=== PATIENT | female | born 1965 | race Caucasian/White ===

== ENCOUNTER 2016-12-06 09:29 | Outpatient (CLI) | payer MEDICARE, MEDICAID | END 2016-12-06 09:30 | disposition home or self-care (01) | DX: R19.7 Diarrhea, unspecified (principal) ==

== ENCOUNTER 2016-12-29 10:58 | Outpatient (CLI) | payer MEDICARE, MEDICAID | END 2016-12-29 10:59 | disposition home or self-care (01) | DX: R19.7 Diarrhea, unspecified (principal) ==

== ENCOUNTER 2017-04-27 14:12 | Inpatient (IN) | payer MEDICARE, MEDICAID ==
[2017-04-27] MEDS ORDERED: SODIUM CHLORIDE 0.9% 1,000 ML IV ONE ×2 (14:32)
[2017-04-27] MEDS ORDERED: methylPREDNISolone SUCCINATE 125 MG/2 ML VIAL IVP STA (14:33)
[2017-04-27] MEDS ORDERED: IPRATROPIUM/ALBUTEROL 3 ML NEB INH STA (14:33)
[2017-04-27] MEDS ORDERED: methylPREDNISolone SUCCINATE 125 MG/2 ML VIAL IVP ONE (14:36)
--- NOTE | 2017-04-27 14:36 | ED Physician Documentation ---
PD HPI DYSPNEA - Stated complaint Stated Complaint: WEAKNESS - Chief complaint Chief Complaint: Resp - History obtained from History obtained from: Patient, Family - History of Present Illness Timing - onset: How many days ago (3) Timing - onset during: Rest Timing - duration: Days (3) Timing - details: Gradual onset Pain level max: 0 Pain level now: 0 Inciting event(s): URI (green sputum, fevers) Improved by: O2, Rest Worsened by: Exertion, Coughing Associated symptoms: Fever, Cough, Wheezing. No: Hemoptysis, Chest pain / discomfort, Palpitations, Diaphoresis, Bilateral edema Similar symptoms before: Diagnosis (emphysema) Recently seen: Not recently seen - Additional information Additional information: has also been treated for c. 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 - Present Medications Home Medications: Ambulatory Orders Medication Instructions Recorded Confirmed Methadone 7.5 mg PO 0800 07/09/16 04/27/17 Oxybutynin [Ditropan] 5 mg PO BID 07/09/16 04/27/17 Methadone HCl [Methadone HCl] 5 mg PO 1200 04/27/17 04/27/17 Methadone HCl [Methadone HCl] 5 mg PO QPM 04/27/17 04/27/17 - Allergies Allergies/Adverse Reactions: Allergies Allergy/AdvReac Type Severity Reaction Status Date / Time No Known Drug Allergies Allergy Verified 07/09/16 14:10 - Living Situation Living Situation: reports: With family Living Arrangement: reports: At home - Social History Does the pt smoke?: Yes Smoking Status: Current every day smoker Does the pt have substance abuse?: Yes PD ED PE NORMAL - Vitals Vital signs reviewed: Yes - General General: Alert and oriented X 3, Other (tachypneic, very thin female) - HEENT HEENT: Moist mucous membranes, Pharynx benign - Neck Neck: Supple, no meningeal sign - Cardiac Cardiac: Other (tachycardia) - Respiratory Respiratory: Other (mod resp distress, diminished BS bilaterally.) - Abdomen Abdomen: Soft, Non tender, Non distended - Back Back: No spinal TTP - Derm Derm: Warm and dry - Extremities Extremities: No edema, No calf tenderness / cord - Neuro Neuro: Alert and oriented X 3 Results - Vitals Vitals: Vital Signs - 24 hr 04/27/17 04/27/17 04/27/17 14:16 14:34 15:09 Temperature 37.9 C H Heart Rate 160 H 137 H Respiratory 28 H 28 H Rate Blood Pressure 142/94 H 144/101 H 147/89 H O2 Saturation 71 L 94 04/27/17 04/27/17 04/27/17 15:20 15:30 15:38 Temperature Heart Rate 127 H 131 H Respiratory 30 H 30 H Rate Blood Pressure 159/84 H 150/85 H O2 Saturation 87 L 87 L 88 L Oxygen O2 Source Oxymask Oxygen Flow Rate 15 - Labs Labs: Laboratory Tests 04/27/17 04/27/17 04/27/17 14:29 14:29 14:49 WBC 15.1 H RBC 5.69 H Hgb 17.2 H Hct 50.6 H MCV 89.0 MCH 30.2 MCHC 33.9 RDW 13.8 Plt Count 300 MPV 8.2 Neut # Not Reportable Lymph # Not Reportable [place] # Not Reportable Eos # Not Reportable Baso # Not Reportable Absolute Nucleated RBC Not Reportable Total Counted 100 Band Neuts % (Manual) 24 H Neutrophils # (Manual) 13.0 H Lymphocytes # (Manual) 1.1 L Monocytes # (Manual) 1.1 H Nucleated RBCs Not Reportable Differential Comment MANUAL DIFFERENTIAL Platelet Estimate NORMAL (130-450,000) Platelet Morphology NORMAL APPEARANCE RBC Morph Micro Appear NORMAL APPEARANCE Sodium 130 L Potassium 4.6 Chloride 90 L Carbon Dioxide 27 Anion Gap 13.0 BUN 23 H Creatinine 0.8 Estimated GFR (MDRD) 75 L Glucose 124 H Lactic Acid 1.8 Calcium 10.0 Total Bilirubin 1.5 H AST 30 ALT 17 Alkaline Phosphatase 74 Total Protein 9.0 H Albumin 3.8 Globulin 5.2 H Albumin/Globulin Ratio 0.7 L Lipase 16 L Urine Color Urine Clarity Urine pH Ur Specific [place] Urine Protein Urine Glucose (UA) Urine Ketones Urine Occult Blood Urine Nitrite Urine Bilirubin Urine Urobilinogen Ur Leukocyte Esterase Urine RBC Urine WBC Ur Squamous Epith Cells Amorphous Sediment Urine Bacteria Urine Casts Ur Microscopic Review Urine Culture Comments 04/27/17 15:08 WBC RBC Hgb Hct MCV MCH MCHC RDW Plt Count MPV Neut # Lymph # [place] # Eos # Baso # Absolute Nucleated RBC Total Counted Band Neuts % (Manual) Neutrophils # (Manual) Lymphocytes # (Manual) Monocytes # (Manual) Nucleated RBCs Differential Comment Platelet Estimate Platelet Morphology RBC Morph Micro Appear Sodium Potassium Chloride Carbon Dioxide Anion Gap BUN Creatinine Estimated GFR (MDRD) Glucose Lactic Acid Calcium Total Bilirubin AST ALT Alkaline Phosphatase Total Protein Albumin Globulin Albumin/Globulin Ratio Lipase Urine Color YELLOW Urine Clarity CLEAR Urine pH 6.0 Ur Specific [place] >=1.030 H Urine Protein >=300 H Urine Glucose (UA) NEGATIVE Urine Ketones NEGATIVE Urine Occult Blood LARGE H Urine Nitrite POSITIVE H Urine Bilirubin NEGATIVE Urine Urobilinogen 0.2 (NORMAL) Ur Leukocyte Esterase NEGATIVE Urine RBC 11-25 H Urine WBC 11-25 H Ur Squamous Epith Cells FEW Squamous Amorphous Sediment Moderate Urine Bacteria Many H Urine Casts 6-10 Fine Granular Ur Microscopic Review INDICATED Urine Culture Comments INDICATED - Rads (name of study) Chest x-ray Radiology: Prelim report reviewed, EMP read contemporaneously, See rad report ( Hyperexpanded emphysematous chest, with new areas of abnormal pulmonary opacity and consolidation in the left lung base, compatible with pneumonia. ) PD MEDICAL DECISION MAKING - ED course Complexity details: reviewed old records, reviewed results, re-evaluated patient , considered differential, d/w patient, d/w family, d/w home energy consultant ED course: Patient is a 52-year-old female who presents to the emergency department with significant pneumonia, COPD exacerbation, hypoxia and sepsis. Given IV fluids, IV antibiotics. Blood cultures drawn. Given IV steroids. Improved with nebulizer treatment. Discussed the case with Dr. Doherty, hospitalist who accepts. This document was made in part using voice recognition software. While efforts are made to proofread this document, sound alike and grammatical errors may occur. Departure - Departure Disposition: 66 [facility] DC/Xfer Clinical Impression: Hypoxia, SIRS (systemic inflammatory response syndrome), Acute exacerbation of chronic obstructive pulmonary disease (COPD) Pneumonia Qualifiers: Pneumonia type: due to unspecified organism Laterality: bilateral Lung location : lower lobe of lung Qualified Code(s): J18.9 - Pneumonia, unspecified organism Condition: Stable Discharge Date/Time: 04/27/17 16:15
[2017-04-27] MEDS ORDERED: IPRATROPIUM/ALBUTEROL 3 ML NEB INH ONE (14:37)
[2017-04-27 14:39] LABS: BASOPHILS % (AUTO) 0.3 %; EOSINOPHILS % (AUTO) 0.1 %; HCT - HEMATOCRIT 50.6 % (37.0-47.0); HGB - HEMOGLOBIN 17.2 g/dL (12.0-16.0); LYMPHOCYTES % (AUTO) 3.9 %; MEAN CORPUSCULAR HEMOGLOBIN 30.2 pg (27.0-31.0); MEAN CORPUSCULAR HGB CONC 33.9 g/dL (32.0-36.0); MEAN PLATELET VOLUME 8.2 fL (7.9-10.8); MONOCYTES % (AUTO) 7.8 %; NEUTROPHILS % (AUTO) 87.9 %; RED BLOOD COUNT 5.69 10^6/uL (4.20-5.40); RED CELL DISTRIBUTION WIDTH 13.8 % (12.0-15.0); UNCORRECTED WHITE BLOOD COUNT 15.1 x10^3/uL; WHITE BLOOD COUNT 15.1 x10^3/uL (4.8-10.8)
[2017-04-27] MEDS ORDERED: ALBUTEROL NEB 2.5 MG/3 ML INH STA (14:52)
[2017-04-27] MEDS ORDERED: ALBUTEROL NEB 2.5 MG/3 ML INH ONE (14:52)
[2017-04-27 14:57] LABS: ALBUMIN/GLOBULIN RATIO 0.7 (1.0-2.2); BILIRUBIN,TOTAL 1.5 mg/dL (0.2-1.0); CREATININE 0.8 mg/dL (0.4-1.0); POTASSIUM 4.6 mmol/L (3.5-5.0)
[2017-04-27] MEDS ORDERED: AZITHROMYCIN INJ 500 MG in SODIUM CHLORIDE 0.9% 250 ML IV STA (15:14)
[2017-04-27] MEDS ORDERED: cefTRIAXone 1 GM in SODIUM CHLORIDE 0.9% MINIBAG 100 ML IV STA (15:14)
[2017-04-27] MEDS ORDERED: cefTRIAXone 1 GM VIAL ONE (15:16)
[2017-04-27 15:20] LABS: BILIRUBIN,URINE NEGATIVE (NEGATIVE); UA w/ MICROSCOPIC CHARGE YES
[2017-04-27 15:22] LABS: BAND NEUTROPHILS % (MANUAL) 24 %; LYMPHOCYTES % (MANUAL) 7 %; NEUTROPHILS % (MANUAL) 62 %; NP AUTO DIFFERENTIAL? YES; NP MAN DIFFERENTIAL? NO; PLATELET ESTIMATE, MANUAL NORMAL (130-450,000) (NORMAL); PLATELET MORPHOLOGY NORMAL APPEARANCE (NORMAL); TOTAL CELLS COUNTED 100
[2017-04-27 15:35] LABS: UR CULTURE IF IND INDICATED
[2017-04-27] MEDS ORDERED: ONDANSETRON 4 MG/2 ML VIAL IVP PRN (15:39)
--- NOTE | 2017-04-27 15:39 | XRAY Preliminary Report ---
Exam: XR Chest 1 View IMPRESSION: 1. Hyperexpanded emphysematous chest, with new areas of abnormal pulmonary opacity and consolidation in the left lung base, compatible with pneumonia. [facility] SITE ID: [id number]
--- NOTE | 2017-04-27 15:47 | XRAY Report ---
EXAM: CHEST RADIOGRAPHY EXAM DATE: 04/27/2017 03:03 PM. CLINICAL HISTORY: Dyspnea. COMPARISON: 07/09/2016. TECHNIQUE: 1 view. FINDINGS: Lungs/Pleura: Hyperexpanded chest with abnormal opacity in both lung bases, worse on the left with co nsolidation. Upper chest is clear. Mediastinum: Within exam limitations, cardiomediastinal contour is normal. Other: None. IMPRESSION: 1. Hyperexpanded emphysematous chest, with new areas of abnormal pulmonary opacity and consolidation in the left lung base, compatible with pneumonia. [facility] Referring Provider Line: [phone] SITE ID: [id number]
[2017-04-27] MEDS ORDERED: ALBUTEROL NEB 2.5 MG/3 ML INH PRN (15:59)
[2017-04-27] MEDS ORDERED: ONDANSETRON 4 MG/2 ML VIAL ONE (16:23)
[2017-04-27] MEDS: SODIUM CHLORIDE FLUSH 0.9% 10 ML SYRINGE IVP SCH (16:29)
[2017-04-27] MEDS: ENOXAPARIN 40 MG/0.4 ML SYRINGE SUBQ SCH (16:37)
[2017-04-27] MEDS: HYDROcod/ACETAM 5/325 MG TABLET PO PRN (16:41)
[2017-04-27] MEDS: SODIUM CHLORIDE 0.9% 1,000 ML IV SCH (17:09)
[2017-04-27] MEDS: METHADONE 5 MG TABLET PO SCH ×2 (17:13→22:21)
[2017-04-27 17:19] LABS: ABG ANALYSIS TIME 1657; ABG HCO3 21.6 mmol/L (22.0-26.0); ABG PCO2 37 mmHg (34-45); ABG PH 7.38 (7.35-7.45); ABG PO2 58 mmHg (80-100); ABG TCO2 22.8 MMOL/L (21.0-29.0)
[2017-04-27 17:20] LABS: ABG O2 DEVICE OXYMASK; ABG SATURATION PULSE OXIMETRY% 92 %; ABG SITE OF DRAW RIGHT RADIAL; ALLEN TEST POSITIVE
[2017-04-27 17:22] LABS: ABG OXYGEN SATURATION 85 % (94-98)
[2017-04-27] MEDS: IPRATROPIUM/ALBUTEROL 3 ML NEB INH PRN (18:12)
[2017-04-27] MEDS: OXYBUTYNIN 5MG TABLET PO SCH (20:48)
[2017-04-27] MEDS: methylPREDNISolone SUCCINATE 40 MG/ML VIAL IVP SCH (20:50)
--- NOTE | 2017-04-27 21:34 | HISTORY & PHYSICAL EXAMINATION ---
DATE OF ADMISSION: 04/27/2017 PRIMARY CARE PROVIDER: None. CHIEF COMPLAINT: Cough, shortness of breath, and weakness. IDENTIFYING INFORMATION: The patient is a 52-year-old female who is a cogent, consistent, a nd fairly thorough historian. Additional information is obtained in the handoff from Dr. Harman champagne, the emergency department physician. In addition, there was personal review of past medical record s summarized below, as well as the data collected during this visit. All were used in the evaluation of this person and in preparation of this document. HISTORY OF PRESENT ILLNESS: The patient says for about a week she has had some URI symptoms such as c ough and cold, had a cough, congestion which then proceeded over the next several days to shortness o f breath and increasing cough, as well as fevers. The patient noted that coughing and exertion made h er breathing worse. The patient denies any chest pain. No coughing up blood. No syncope. REVIEW OF SYSTEMS: She has had the fever, chills. No sore throat. She has had no nausea, vomiting, or diarrhea. Bowels have been okay, peeing has been satisfactory. Rest of the complete review of system s is negative as queried. PAST MEDICAL HISTORY 1. Remarkable for diagnosis of emphysema. 2. She had C difficile 9 months ago. 3. She has had bladder cancer. PAST SURGICAL HISTORY 1. Hysterectomy. 2. Bladder tumors removed 3 different times. ALLERGIES: NONE KNOWN. MEDICATIONS Patient's only medications: 1. Methadone 5 mg morning, 7.5 in the afternoon, and 5 at night. 2. Ditropan 5 mg twice a day. PERSONAL AND SOCIAL HISTORY: She was born in [place], raised in [place]; then in her 20s she moved [place]. 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 Tob acco history: She has been a smoker since she was 15, smokes a pack a day, has been told multiple mj es to quit smoking. She knows she needs to do it. Alcohol: She used to drink moderately, she says. No substance abuse. The patient is presently lives with her boyfriend. PHYSICAL EXAMINATION VITAL SIGNS: 37.9; 160, later 137 pulse; respirations 28; blood pressure 142/94; O2 saturation on jody m air was initially 71, then up to 94% she was on a rebreather and then decreased to an OxyMask. GENERAL: Patient appears older than stated age, a slender female. HEENT: Eyes EOM within normal limits. PERRL, anicteric. ENT: TM not seen. Mouth and throat: Dry mucou s membranes, tongue is coated, and poor dentition. No other pathology of mouth or pharynx. NECK: No lymphadenopathy, no thyromegaly, no bruit or JVD. CHEST WALL: Nontender. Symmetric. There is muscle subcutaneous loss noted intracostal bilaterally. BREASTS: No breast exam done. HEART: Sinus tachycardia. No murmur, rubs, clicks heard. LUNGS: Diminished breath sounds bilaterally and prolonged expirations, fair air movement, and increas ed work of breathing is noted. ABDOMEN: Soft, nontender, normal bowel sounds. No hepatosplenomegaly noted. RECTAL/GENITAL: Exam not done. EXTREMITIES: No edema. SKIN: No dermatitis or suspicious lesions are noted. NEUROLOGICAL: Cognition intact. Cranial nerves intact. Motor intact. VASCULAR: No pulses palpated posterior tibial. No cyanosis noted. Patient's capillary refill not eval uated. DIAGNOSTIC X-ray shows emphysema and a left lower lobe infiltrate. White count 15.1, H and H 17 and 15. Sodium 130, potassium 4.6, chloride 90, 27 CO2, BUN 23, creatini ne 0.8, glucose 124, lactate is 1.8, calcium 10.0, bilirubin 1.5, normal liver enzymes, albumin 3.8, lipase low at 16. The patient had blood cultures pending. Urine pending. IMPRESSION 1. Acute respiratory failure. 2. Pneumonia. 3. Chronic obstructive pulmonary disease with exacerbation. 4. Bladder cancer. SUMMARY: This is a 52-year-old female with advanced emphysema/chronic obstructive pulmonary disease, who has had bladder cancer as well. Patient started with URI symptoms, which progressed to shortness of breath and cough, and reduced ability to complete ADLs. The patient was found to have pneumonia, a cute respiratory failure, and is admitted to the hospital. DISCUSSION/DECISION MAKING 1. Acute respiratory failure. She will get beta-agonist for the COPD with exacerbation component. She will have oxygen and steroids as needed; may need further interventions including BiPAP and ventilat ion. 2. Pneumonia. She will be placed on community-acquired pneumonia antibiotics, namely Rocephin and Zit hromax. The patient will also be given the oxygen and steroids because of the COPD with exacerbation. 3. COPD with exacerbation. She will be placed on the beta-agonist, DuoNeb, and albuterol and as well as the Solu-Medrol. HOSPITAL ISSUES 1. CODE STATUS: She is FULL CODE; had a discussion with her about this and it was her decision. She a lso wants to BE ON THE VENTILATOR SEE IF HER LUNGS WILL GET BETTER. 2. Venous thromboembolism prophylaxis, which will be with Lovenox. 3. Diet: Regular diet. 4. Activity: Bedside for present. 5. Tubes and lines: Peripheral IV at this time. 6. Hospital status: Inpatient requiring at least 2 nights to determine if she is ready for discharge, and it could be longer. 7. Estimated length of stay: 3 nights. DISPOSITION: Expected to be home. The patient is told in several different ways throughout the interview conversation and post examinat ion that under no circumstances should she smoke if she wants to continue to live, and that she has g ot a reduced life span because of her advanced COPD. JOB #: [id number] EXT JOB #:[id number]
[2017-04-28] MEDS: SODIUM CHLORIDE 0.9% 1,000 ML IV SCH ×3 (01:16→23:48)
[2017-04-28] MEDS: HYDROcod/ACETAM 5/325 MG TABLET PO PRN (04:17)
[2017-04-28] MEDS: SODIUM CHLORIDE FLUSH 0.9% 10 ML SYRINGE IVP SCH ×4 (05:01→21:27)
[2017-04-28 05:43] LABS: MONOCYTES # (AUTO) 0.6 10^3/uL (0.0-1.0); NEUTROPHILS # (AUTO) 8.3 10^3/uL (1.5-6.6); RED BLOOD COUNT 4.19 10^6/uL (4.20-5.40)
[2017-04-28 05:45] LABS: BASOPHILS % (AUTO) 0.2 %; HCT - HEMATOCRIT 37.6 % (37.0-47.0); HGB - HEMOGLOBIN 12.7 g/dL (12.0-16.0); LYMPHOCYTES # (AUTO) 0.3 10^3/uL (1.5-3.5); LYMPHOCYTES % (AUTO) 3.5 %; MEAN CORPUSCULAR HEMOGLOBIN 30.4 pg (27.0-31.0); MEAN CORPUSCULAR HGB CONC 33.9 g/dL (32.0-36.0); MEAN CORPUSCULAR VOLUME 89.6 fL (81.0-99.0); MEAN PLATELET VOLUME 8.2 fL (7.9-10.8); MONOCYTES % (AUTO) 6.9 %; NEUTROPHILS % (AUTO) 89.4 %; RED CELL DISTRIBUTION WIDTH 13.9 % (12.0-15.0); UNCORRECTED WHITE BLOOD COUNT 9.3 x10^3/uL; WHITE BLOOD COUNT 9.3 x10^3/uL (4.8-10.8)
[2017-04-28 05:53] LABS: CALCIUM 8.6 mg/dL (8.5-10.3); CREATININE 0.5 mg/dL (0.4-1.0); POTASSIUM 4.1 mmol/L (3.5-5.0)
--- NOTE | 2017-04-28 08:15 | PROVIDER PROGRESS NOTE ---
Assessment/Plan - Problem List (1) Acute respiratory failure with hypoxia Assessment/Plan: Patient presented with pneumonia and COPD exacerbation Had increasing O2 needs with tachycardia in the 140s, tachypnic and in respiratory distress ABG showed hypoxia Placed in the ICU on 10L of O2 Starting on IV abx ceftriaxone and azithromycin Placed on IV steroids and nebs Improved this am down to 5L of O2 COntinue supplemental O2 and treatment of PNA and COPD (2) CAP (community acquired pneumonia) Assessment/Plan: CXR showed left lung base opacity Patient presented with respiratory distress and was in hypoxic respiratory failure Required 10L of O2 yesterday but today is down to 5L and much more comfortable Continue IV ceftriaxone and azithromycin day 2 (3) COPD exacerbation Assessment/Plan: Likely secondary to CAP Patient with history of emphysema Presented with hypoxic respiratory failure Improved today down to 5L of O2 Decreased lungs sounds Continue IV solumedrol, Duonebs (4) UTI (urinary tract infection) Assessment/Plan: Presented with leukocytosis and UA positive Being treated for CAP with ceftriaxone which covers UTI Continue ceftriaxone IV Awaiting urine cx - Current Meds Current Meds: Current Medications Generic Name Dose Route Start Last Admin Trade Name Freq PRN Reason Stop Dose Admin Acetaminophen/Hydrocodone Bitart 1 tab 04/27/17 15:39 04/28/17 04:17 Evangeline 5/325 PO 1 tab Q4HR PRN Administration Pain 5 to 7 Albuterol/Ipratropium 3 ml 04/27/17 15:59 04/27/17 18:12 Duoneb INH 3 ml Q4HR PRN Administration Wheezing Enoxaparin Sodium 40 mg 04/27/17 09:00 04/27/17 16:37 Lovenox SUBQ Not Given DAILY RAYRAY Sodium Chloride 1,000 mls @ 80 mls/hr 04/27/17 16:00 04/28/17 01:16 Normal Saline 0.9% IV 80 mls/hr .[id number] RAYRAY Administration Methadone HCl 5 mg 04/27/17 21:00 04/27/17 22:21 PO 5 mg QPM RAYRAY Administration Methadone HCl 5 mg 04/27/17 17:15 04/27/17 17:13 PO 5 mg 1200 RAYRAY Administration Methylprednisolone 40 mg 04/27/17 21:00 04/27/17 20:50 Solu-Medrol (40mg Vial) IVP 40 mg BID RAYRAY Administration Oxybutynin Chloride 5 mg 04/27/17 21:00 04/27/17 20:48 Ditropan PO 5 mg BID RAYRAY Administration Sodium Chloride 10 ml 04/27/17 22:00 04/28/17 05:01 Normal Saline Flush 0.9% IVP 10 ml Q8HR RAYRAY Administration - Lab Result Lab results reviewed: Yes Fish Bone Diagrams: 04/28/17 04:47 04/28/17 04:47 - EKG Results EKG Interpreted Independently: Yes - Diagnostic Imaging Results Diagnostic Imaging Results: positive: Final report reviewed - Additional Planning Condition/Complexity: Guarded My Orders: My Active Orders 04/28/17 08:00 Saccharomyces Boulardii [Florastor] 250 mg PO BIDWM Plan Discussed with:: Patient Time Spent: 31-60 minutes Subjective - Subjective Patient Reports: Cough (Improving), Shortness of Breath (Improved since yesterday), Other (No fevers overnight, breathing is better.) Nursing Reports: No Complaints Objective Vital Signs: Vital Signs - 24 hr 04/27/17 04/27/17 04/27/17 15:59 18:14 20:00 Temperature 36.9 C Heart Rate 137 H 100 Heart Rate [ 102 H Monitoring electrodes] Respiratory 29 H 21 21 Rate Blood Pressure 147/98 H Blood Pressure 116/67 [Left Brachial artery] O2 Saturation 90 L 90 L 04/27/17 04/27/17 04/27/17 21:00 22:00 23:00 Temperature Heart Rate Heart Rate [ 102 H 100 97 Monitoring electrodes] Respiratory 16 16 20 Rate Blood Pressure Blood Pressure 113/68 108/66 113/71 [Left Brachial artery] O2 Saturation 90 L 91 L 94 04/28/17 04/28/17 04/28/17 00:00 01:00 02:00 Temperature Heart Rate Heart Rate [ 100 98 90 Monitoring electrodes] Respiratory 18 17 16 Rate Blood Pressure Blood Pressure 113/71 95/56 L 116/70 [Left Brachial artery] O2 Saturation 99 97 95 04/28/17 04/28/17 04/28/17 03:00 04:00 05:00 Temperature Heart Rate Heart Rate [ 80 96 78 Monitoring electrodes] Respiratory 18 18 20 Rate Blood Pressure Blood Pressure 102/60 110/70 124/67 [Left Brachial artery] O2 Saturation 91 L 92 93 06/27/17 06/27/17 06/27/17 06:00 06:58 08:00 Temperature Heart Rate Heart Rate [ 92 67 93 Monitoring electrodes] Respiratory 21 12 20 Rate Blood Pressure Blood Pressure 128/60 104/61 120/72 [Left Brachial artery] O2 Saturation 93 93 88 L Oxygen O2 Source Nasal cannula I&O (Last 24 Hrs): Intake and Output Totals x24h 04/26/17 04/27/17 04/28/17 23:59 23:59 23:59 Intake Total 560 740 Output Total 375 175 Balance 185 565 General: Alert, Oriented x3, Cooperative, No acute distress, Other (Very thin and frail looking) HEENT: Atraumatic, PERRLA, EOMI, Mucous membr. moist/pink Neck: Supple, No JVD, No thyromegaly, +2 carotid pulse wo bruit, No LAD Lymphatic: no adenopathy Neuro: Alert, Non Focal, CN 2-12 Grossly Intact, Oriented Times 3 Cardiovascular: Regular rate, Normal S1, Normal S2, No murmurs Respiratory: Chest non-tender, Wheezes (scattered), Rhonchi (left lower lobe), Other (decreased air entry) Abdomen: Normal bowel sounds, Soft, No tenderness, No hepatospenomegaly, No masses Extremities: No clubbing, No cyanosis, No edema, Normal pulses, No tenderness/ swelling Skin: No rashes, No breakdown - Results Results: Laboratory Results WBC 9.3 x10^3/uL (4.8-10.8) 04/28/17 04:47 RBC 4.19 10^6/uL (4.20-5.40) L 04/28/17 04:47 Hgb 12.7 g/dL (12.0-16.0) 04/28/17 04:47 Hct 37.6 % (37.0-47.0) 04/28/17 04:47 MCV 89.6 fL (81.0-99.0) 04/28/17 04:47 MCH 30.4 pg (27.0-31.0) 04/28/17 04:47 MCHC 33.9 g/dL (32.0-36.0) 04/28/17 04:47 RDW 13.9 % (12.0-15.0) 04/28/17 04:47 Plt Count 205 10^3/uL (130-450) 04/28/17 04:47 MPV 8.2 fL (7.9-10.8) 04/28/17 04:47 Neut # 8.3 10^3/uL (1.5-6.6) H 04/28/17 04:47 Lymph # 0.3 10^3/uL (1.5-3.5) L 04/28/17 04:47 [place] # 0.6 10^3/uL (0.0-1.0) 04/28/17 04:47 Eos # 0.0 10^3/uL (0.0-0.7) 04/28/17 04:47 Baso # 0.0 10^3/uL (0.0-0.1) 04/28/17 04:47 Absolute Nucleated RBC 0.00 x10^3/uL 04/28/17 04:47 Total Counted 100 04/27/17 14:29 Band Neuts % (Manual) 24 % (0-10) H 04/27/17 14:29 Neutrophils # (Manual) 13.0 10^3/uL (1.5-6.6) H 04/27/17 14:29 Lymphocytes # (Manual) 1.1 10^3/uL (1.5-3.5) L 04/27/17 14:29 Monocytes # (Manual) 1.1 10^3/uL (0.0-1.0) H 04/27/17 14:29 Nucleated RBCs 0.0 /100WBC 04/28/17 04:47 Differential Comment MANUAL DIFFERENTIAL 04/27/17 14:29 Platelet Estimate NORMAL (130-450,000) (NORMAL) 04/27/17 14:29 Platelet Morphology NORMAL APPEARANCE (NORMAL) 04/27/17 14:29 RBC Morph Micro Appear NORMAL APPEARANCE (NORMAL) 04/27/17 14:29 Bld Gas Analysis Time 1657 04/27/17 16:50 Sample Site RIGHT RADIAL 04/27/17 16:50 ABG pH 7.38 (7.35-7.45) 04/27/17 16:50 ABG pCO2 37 mmHg (34-45) 04/27/17 16:50 ABG pO2 58 mmHg (80-100) L 04/27/17 16:50 ABG HCO3 21.6 mmol/L (22.0-26.0) L 04/27/17 16:50 ABG Total CO2 22.8 MMOL/L (21.0-29.0) 04/27/17 16:50 ABG O2 Saturation 85 % (94-98) L* 04/27/17 16:50 ABG Oximetry Spot Check 92 % 04/27/17 16:50 ABG Base Excess -3.0 mmol/L (-2.0-3.0) L 04/27/17 16:50 Leonel Test POSITIVE 04/27/17 16:50 O2 Delivery Device OXYMASK 04/27/17 16:50 O2 Liters/Min 10.00 LPM 04/27/17 16:50 Sodium 136 mmol/L (135-145) 04/28/17 04:47 Potassium 4.1 mmol/L (3.5-5.0) 04/28/17 04:47 Chloride 101 mmol/L (101-111) 04/28/17 04:47 Carbon Dioxide 26 mmol/L (21-32) 04/28/17 04:47 Anion Gap 9.0 (6-13) 04/28/17 04:47 BUN 18 mg/dL (6-20) 04/28/17 04:47 Creatinine 0.5 mg/dL (0.4-1.0) 04/28/17 04:47 Estimated GFR (MDRD) 130 (>89) 04/28/17 04:47 Glucose 113 mg/dL (70-100) H 04/28/17 04:47 Lactic Acid 1.8 mmol/L (0.5-2.2) 04/27/17 14:49 Calcium 8.6 mg/dL (8.5-10.3) 04/28/17 04:47 Total Bilirubin 1.5 mg/dL (0.2-1.0) H 04/27/17 14:29 AST 30 IU/L (10-42) 04/27/17 14:29 ALT 17 IU/L (10-60) 04/27/17 14:29 Alkaline Phosphatase 74 IU/L (42-121) 04/27/17 14:29 Total Protein 9.0 g/dL (6.7-8.2) H 04/27/17 14:29 Albumin 3.8 g/dL (3.2-5.5) 04/27/17 14:29 Globulin 5.2 g/dL (2.1-4.2) H 04/27/17 14:29 Albumin/Globulin Ratio 0.7 (1.0-2.2) L 04/27/17 14:29 Lipase 16 U/L (22-51) L 04/27/17 14:29 Urine Color YELLOW 04/27/17 15:08 Urine Clarity CLEAR (CLEAR) 04/27/17 15:08 Urine pH 6.0 PH (5.0-7.5) 04/27/17 15:08 Ur Specific [place] >=1.030 (1.002-1.030) H 04/27/17 15:08 Urine Protein >=300 mg/dL (NEGATIVE) H 04/27/17 15:08 Urine Glucose (UA) NEGATIVE mg/dL (NEGATIVE) 04/27/17 15:08 Urine Ketones NEGATIVE mg/dL (NEGATIVE) 04/27/17 15:08 Urine Occult Blood LARGE (NEGATIVE) H 04/27/17 15:08 Urine Nitrite POSITIVE (NEGATIVE) H 04/27/17 15:08 Urine Bilirubin NEGATIVE (NEGATIVE) 04/27/17 15:08 Urine Urobilinogen 0.2 (NORMAL) E.U./dL (NORMAL) 04/27/17 15:08 Ur Leukocyte Esterase NEGATIVE (NEGATIVE) 04/27/17 15:08 Urine RBC 11-25 /HPF (0-5) H 04/27/17 15:08 Urine WBC 11-25 /HPF (0-5) H 04/27/17 15:08 Ur Squamous Epith Cells FEW Squamous (<= Few) 04/27/17 15:08 Amorphous Sediment Moderate /LPF 04/27/17 15:08 Urine Bacteria Many /HPF (None Seen) H 04/27/17 15:08 Urine Casts 6-10 Fine Granular /LPF 04/27/17 15:08 Ur Microscopic Review INDICATED 04/27/17 15:08 Urine Culture Comments INDICATED 04/27/17 15:08
[2017-04-28] MEDS: ACETAMINOPHEN 325 MG TABLET PO PRN ×3 (08:16→21:35)
[2017-04-28] MEDS: METHADONE 5 MG TABLET PO SCH ×3 (08:16→21:25)
[2017-04-28] MEDS: SACCHAROMYCES BOULARDII 250 MG CAPSULE PO SCH ×2 (08:24→18:02)
[2017-04-28] MEDS: cefTRIAXone 2 GM in SODIUM CHLORIDE 0.9% MINIBAG 100 ML IV SCH (08:53)
[2017-04-28] MEDS: ENOXAPARIN 40 MG/0.4 ML SYRINGE SUBQ SCH (08:53)
[2017-04-28] MEDS: POLYETHYLENE GLYCOL 3350 17 GM PACKET PO SCH (08:53)
[2017-04-28] MEDS: methylPREDNISolone SUCCINATE 40 MG/ML VIAL IVP SCH ×2 (09:14→21:27)
[2017-04-28] MEDS: OXYBUTYNIN 5MG TABLET PO SCH ×2 (09:15→21:25)
[2017-04-28] MEDS: AZITHROMYCIN INJ 500 MG in SODIUM CHLORIDE 0.9% 250 ML IV SCH (10:19)
[2017-04-28] MEDS: ONDANSETRON 4 MG/2 ML VIAL IVP PRN ×2 (11:34→17:27)
[2017-04-28] MEDS: DOCUSATE SODIUM 250 MG CAPSULE PO SCH (18:01)
[2017-04-29] MEDS: SODIUM CHLORIDE FLUSH 0.9% 10 ML SYRINGE IVP SCH ×3 (05:32→20:53)
[2017-04-29] MEDS: HYDROcod/ACETAM 5/325 MG TABLET PO PRN (05:35)
[2017-04-29 06:07] LABS: BASOPHILS % (AUTO) 0.3 %; HGB - HEMOGLOBIN 12.7 g/dL (12.0-16.0); LYMPHOCYTES % (AUTO) 4.7 %; MEAN CORPUSCULAR HEMOGLOBIN 30.1 pg (27.0-31.0); MEAN CORPUSCULAR HGB CONC 33.4 g/dL (32.0-36.0); MEAN CORPUSCULAR VOLUME 90.2 fL (81.0-99.0); MEAN PLATELET VOLUME 8.1 fL (7.9-10.8); MONOCYTES % (AUTO) 4.1 %; NEUTROPHILS % (AUTO) 90.9 %; RED BLOOD COUNT 4.21 10^6/uL (4.20-5.40); RED CELL DISTRIBUTION WIDTH 14.1 % (12.0-15.0); UNCORRECTED WHITE BLOOD COUNT 14.2 x10^3/uL; WHITE BLOOD COUNT 14.2 x10^3/uL (4.8-10.8)
[2017-04-29 06:18] LABS: CREATININE 0.5 mg/dL (0.4-1.0); POTASSIUM 4.7 mmol/L (3.5-5.0)
[2017-04-29 06:29] LABS: BAND NEUTROPHILS % (MANUAL) 24 %; LYMPHOCYTES % (MANUAL) 3 %; NEUTROPHILS % (MANUAL) 73 %; PLATELET ESTIMATE, MANUAL NORMAL (130-450,000) (NORMAL); TOTAL CELLS COUNTED 100
[2017-04-29 06:30] LABS: NP AUTO DIFFERENTIAL? YES; NP MAN DIFFERENTIAL? NO
[2017-04-29] MEDS: IPRATROPIUM/ALBUTEROL 3 ML NEB INH PRN ×4 (07:40→19:53)
[2017-04-29] MEDS: METHADONE 5 MG TABLET PO SCH ×3 (09:00→20:52)
[2017-04-29] MEDS: DOCUSATE SODIUM 250 MG CAPSULE PO SCH (09:01)
[2017-04-29] MEDS: ENOXAPARIN 40 MG/0.4 ML SYRINGE SUBQ SCH (09:01)
[2017-04-29] MEDS: SACCHAROMYCES BOULARDII 250 MG CAPSULE PO SCH ×2 (09:01→18:31)
[2017-04-29] MEDS: cefTRIAXone 2 GM in SODIUM CHLORIDE 0.9% MINIBAG 100 ML IV SCH (09:01)
[2017-04-29] MEDS: methylPREDNISolone SUCCINATE 40 MG/ML VIAL IVP SCH (09:02)
[2017-04-29] MEDS: SODIUM CHLORIDE FLUSH 0.9% 10 ML SYRINGE IVP PRN ×2 (09:02→11:54)
[2017-04-29] MEDS: OXYBUTYNIN 5MG TABLET PO SCH ×2 (09:02→20:52)
[2017-04-29] MEDS: POLYETHYLENE GLYCOL 3350 17 GM PACKET PO SCH (09:02)
--- NOTE | 2017-04-29 09:09 | PROVIDER PROGRESS NOTE ---
Assessment/Plan - Problem List (1) Acute exacerbation of chronic obstructive pulmonary disease (COPD) Assessment/Plan: (1) Acute respiratory failure with hypoxia Assessment/Plan: Patient presented with pneumonia and COPD exacerbation Had increasing O2 needs with tachycardia in the 140s, tachypnic and in respiratory distress ABG showed hypoxia admitted to ICU and started on abx and copd tx some improvement by HD 2 and pt was transferred to the medical [facility]. pt continues to require supplemental oxygen 4-5 liters, on RA at baseline continue nebs and tx as below. (2) CAP (community acquired pneumonia) Assessment/Plan: CXR showed left lung base opacity Patient presented with respiratory distress and was in hypoxic respiratory failure She is having left sided pleuritic cp and has vicodin for break through pain Continue IV ceftriaxone and azithromycin started 04/27 (3) COPD exacerbation Assessment/Plan: Likely secondary to CAP and long hx of tobacco dependence Patient with history of emphysema Presented with hypoxic respiratory failure overall improving, decreased oxygen needs today at 4-5 L NC Continue Duonebs, change IV solumedrol to prednisone 60 mg daily for a taper Encourage tobacco cessation (4) UTI (urinary tract infection) Assessment/Plan: Presented with leukocytosis and UA positive UCx >100k E coli Continue ceftriaxone IV 5) tobacco dependence encouraged cessation and offered assistance including nicotine patch and chantix. pt wants to quite but does not feel she needs any assitance at this time. 6) Narcotic dependence continuous use pt has been on methadone group home. She states it was started for abd pain. home methadone dose was continued - Current Meds Current Meds: Current Medications Generic Name Dose Route Start Last Admin Trade Name [place]q PRN Reason Stop Dose Admin Acetaminophen 650 mg 04/27/17 15:39 04/28/17 21:35 Tylenol PO 650 mg Q4HR PRN Administration Pain 1 to 4 Acetaminophen/Hydrocodone Bitart 1 tab 04/27/17 15:39 04/29/17 05:35 [place] 5/325 PO 1 tab Q4HR PRN Administration Pain 5 to 7 Albuterol/Ipratropium 3 ml 04/27/17 15:59 04/29/17 07:40 Duoneb INH 3 ml Q4HR PRN Administration Wheezing Docusate Sodium 250 - 500 mg 04/28/17 17:45 04/29/17 09:01 Colace 250mg Capsule PO Not Given DAILY RAYRAY Enoxaparin Sodium 40 mg 04/27/17 09:00 04/29/17 09:01 Lovenox SUBQ 40 mg DAILY RAYRAY Administration Sodium Chloride 1,000 mls @ 80 mls/hr 04/27/17 16:00 04/28/17 23:48 Normal Saline 0.9% IV 80 mls/hr .[id number] RAYRAY Administration Azithromycin 500 mg/ Sodium 250 mls @ 250 mls/hr 04/28/17 10:00 04/28/17 10:19 Chloride IV 250 mls/hr DAILY@1000 RAYRAY Administration Ceftriaxone Sodium 2 gm/ 100 mls @ 200 mls/hr 04/28/17 09:00 04/29/17 09:01 Sodium Chloride IV 200 mls/hr DAILY RAYRAY Administration Methadone HCl 5 mg 04/27/17 21:00 04/28/17 21:25 PO 5 mg QPM RAYRAY Administration Methadone HCl 7.5 mg 04/28/17 08:00 04/29/17 09:00 PO 7.5 mg 0800 RAYRAY Administration Methadone HCl 5 mg 04/27/17 17:15 04/28/17 12:14 PO 5 mg 1200 RAYRAY Administration Methylprednisolone 40 mg 04/27/17 21:00 04/29/17 09:02 Solu-Medrol (40mg Vial) IVP 40 mg BID RAYRAY Administration Ondansetron HCl 4 mg 04/27/17 16:31 04/28/17 17:27 Zofran Inj IVP 4 mg Q4HR PRN Administration Nausea / Vomiting Oxybutynin Chloride 5 mg 04/27/17 21:00 04/29/17 09:02 Ditropan PO 5 mg BID RAYRAY Administration Polyethylene Glycol 17 gm 04/28/17 09:00 04/29/17 09:02 Miralax PO Not Given DAILY RAYRAY Saccharomyces Boulardii 250 mg 04/28/17 08:00 04/29/17 09:01 Florastor PO 250 mg BIDWM RAYRAY Administration Sodium Chloride 10 ml 04/27/17 15:39 04/29/17 09:02 Normal Saline Flush 0.9% IVP 10 ml PRN PRN Administration NEEDED PER PROVIDER ORDERS Sodium Chloride 10 ml 04/27/17 22:00 04/29/17 05:32 Normal Saline Flush 0.9% IVP 10 ml Q8HR RAYRAY Administration - Lab Result Fish Bone Diagrams: 04/29/17 05:35 04/29/17 05:35 - Additional Planning My Orders: My Active Orders 04/28/17 17:45 Docusate Sodium 250Mg Capsule [Colace 250Mg Capsule] 250 - 500 mg PO DAILY Subjective - Subjective Patient Reports: Resting Comfortably, Other (less shortness of breath, is complaining of left sided pleuritic chest pain.) Objective Vital Signs: Vital Signs - 24 hr 04/28/17 04/28/17 04/28/17 10:00 11:00 11:51 Temperature 36.3 C L Heart Rate Heart Rate [ Brachial] Heart Rate [ 75 92 81 Monitoring electrodes] Respiratory 19 16 20 Rate Blood Pressure 142/79 H 131/73 H 125/73 [Left Brachial artery] O2 Saturation 93 99 99 04/28/17 04/28/17 04/28/17 12:48 14:00 14:43 Temperature Heart Rate Heart Rate [ Brachial] Heart Rate [ 91 75 78 Monitoring electrodes] Respiratory 15 19 18 Rate Blood Pressure 120/73 134/78 H 133/83 H [Left Brachial artery] O2 Saturation 92 94 96 04/28/17 04/28/17 04/28/17 16:00 17:00 17:58 Temperature 36.8 C Heart Rate Heart Rate [ Brachial] Heart Rate [ 67 70 80 Monitoring electrodes] Respiratory 16 17 17 Rate Blood Pressure 124/72 130/65 145/77 H [Left Brachial artery] O2 Saturation 97 97 93 04/28/17 04/28/17 04/29/17 18:30 20:00 00:00 Temperature 36.9 C 36.6 C 36.6 C Heart Rate Heart Rate [ 68 68 65 Brachial] Heart Rate [ Monitoring electrodes] Respiratory 20 18 18 Rate Blood Pressure 143/78 H 147/68 H 122/76 [Left Brachial artery] O2 Saturation 94 96 98 04/29/17 04/29/17 04/29/17 05:31 07:40 08:57 Temperature 36.7 C 36.5 C Heart Rate 64 Heart Rate [ 66 74 Brachial] Heart Rate [ Monitoring electrodes] Respiratory 18 18 14 Rate Blood Pressure 103/56 L 124/67 [Left Brachial artery] O2 Saturation 97 94 Oxygen O2 Source Nasal cannula I&O (Last 24 Hrs): Intake and Output Totals x24h 04/27/17 04/28/17 04/29/17 23:59 23:59 23:59 Intake Total 560 9505 795 Output Total 375 275 Balance 185 3110 795 General: Alert, Oriented x3, No acute distress Cardiovascular: Regular rate, Normal S1, Normal S2, No murmurs Respiratory: No respiratory distress, Other (left posterior basilar rhales on inspiration, improve with deep breath.) Abdomen: Normal bowel sounds, Soft, No tenderness Extremities: No edema, No tenderness/swelling - Results Results: Laboratory Results WBC 14.2 x10^3/uL (4.8-10.8) H 04/29/17 05:35 RBC 4.21 10^6/uL (4.20-5.40) 04/29/17 05:35 Hgb 12.7 g/dL (12.0-16.0) 04/29/17 05:35 Hct 38.0 % (37.0-47.0) 04/29/17 05:35 MCV 90.2 fL (81.0-99.0) 04/29/17 05:35 MCH 30.1 pg (27.0-31.0) 04/29/17 05:35 MCHC 33.4 g/dL (32.0-36.0) 04/29/17 05:35 RDW 14.1 % (12.0-15.0) 04/29/17 05:35 Plt Count 240 10^3/uL (130-450) 04/29/17 05:35 MPV 8.1 fL (7.9-10.8) 04/29/17 05:35 Neut # Not Reportable 04/29/17 05:35 Lymph # Not Reportable 04/29/17 05:35 [place] # Not Reportable 04/29/17 05:35 Eos # Not Reportable 04/29/17 05:35 Baso # Not Reportable 04/29/17 05:35 Absolute Nucleated RBC Not Reportable 04/29/17 05:35 Total Counted 100 04/29/17 05:35 Band Neuts % (Manual) 24 % (0-10) H 04/29/17 05:35 Neutrophils # (Manual) 13.8 10^3/uL (1.5-6.6) H 04/29/17 05:35 Lymphocytes # (Manual) 0.4 10^3/uL (1.5-3.5) L 04/29/17 05:35 Monocytes # (Manual) 1.1 10^3/uL (0.0-1.0) H 04/27/17 14:29 Nucleated RBCs Not Reportable 04/29/17 05:35 Differential Comment MANUAL DIFFERENTIAL 04/29/17 05:35 Platelet Estimate NORMAL (130-450,000) (NORMAL) 04/29/17 05:35 Platelet Morphology NORMAL APPEARANCE (NORMAL) 04/27/17 14:29 RBC Morph Micro Appear NORMAL APPEARANCE (NORMAL) 04/29/17 05:35 Bld Gas Analysis Time 1657 04/27/17 16:50 Sample Site RIGHT RADIAL 04/27/17 16:50 ABG pH 7.38 (7.35-7.45) 04/27/17 16:50 ABG pCO2 37 mmHg (34-45) 04/27/17 16:50 ABG pO2 58 mmHg (80-100) L 04/27/17 16:50 ABG HCO3 21.6 mmol/L (22.0-26.0) L 04/27/17 16:50 ABG Total CO2 22.8 MMOL/L (21.0-29.0) 04/27/17 16:50 ABG O2 Saturation 85 % (94-98) L* 04/27/17 16:50 ABG Oximetry Spot Check 92 % 04/27/17 16:50 ABG Base Excess -3.0 mmol/L (-2.0-3.0) L 04/27/17 16:50 Leonel Test POSITIVE 04/27/17 16:50 O2 Delivery Device OXYMASK 04/27/17 16:50 O2 Liters/Min 10.00 LPM 04/27/17 16:50 Sodium 137 mmol/L (135-145) 04/29/17 05:35 Potassium 4.7 mmol/L (3.5-5.0) 04/29/17 05:35 Chloride 102 mmol/L (101-111) 04/29/17 05:35 Carbon Dioxide 28 mmol/L (21-32) 04/29/17 05:35 Anion Gap 7.0 (6-13) 04/29/17 05:35 BUN 18 mg/dL (6-20) 04/29/17 05:35 Creatinine 0.5 mg/dL (0.4-1.0) 04/29/17 05:35 Estimated GFR (MDRD) 130 (>89) 04/29/17 05:35 Glucose 131 mg/dL (70-100) H 04/29/17 05:35 Lactic Acid 1.8 mmol/L (0.5-2.2) 04/27/17 14:49 Calcium 9.0 mg/dL (8.5-10.3) 04/29/17 05:35 Total Bilirubin 1.5 mg/dL (0.2-1.0) H 04/27/17 14:29 AST 30 IU/L (10-42) 04/27/17 14:29 ALT 17 IU/L (10-60) 04/27/17 14:29 Alkaline Phosphatase 74 IU/L (42-121) 04/27/17 14:29 Total Protein 9.0 g/dL (6.7-8.2) H 04/27/17 14:29 Albumin 3.8 g/dL (3.2-5.5) 04/27/17 14:29 Globulin 5.2 g/dL (2.1-4.2) H 04/27/17 14:29 Albumin/Globulin Ratio 0.7 (1.0-2.2) L 04/27/17 14:29 Lipase 16 U/L (22-51) L 04/27/17 14:29 Urine Color YELLOW 04/27/17 15:08 Urine Clarity CLEAR (CLEAR) 04/27/17 15:08 Urine pH 6.0 PH (5.0-7.5) 04/27/17 15:08 Ur Specific [place] >=1.030 (1.002-1.030) H 04/27/17 15:08 Urine Protein >=300 mg/dL (NEGATIVE) H 04/27/17 15:08 Urine Glucose (UA) NEGATIVE mg/dL (NEGATIVE) 04/27/17 15:08 Urine Ketones NEGATIVE mg/dL (NEGATIVE) 04/27/17 15:08 Urine Occult Blood LARGE (NEGATIVE) H 04/27/17 15:08 Urine Nitrite POSITIVE (NEGATIVE) H 04/27/17 15:08 Urine Bilirubin NEGATIVE (NEGATIVE) 04/27/17 15:08 Urine Urobilinogen 0.2 (NORMAL) E.U./dL (NORMAL) 04/27/17 15:08 Ur Leukocyte Esterase NEGATIVE (NEGATIVE) 04/27/17 15:08 Urine RBC 11-25 /HPF (0-5) H 04/27/17 15:08 Urine WBC 11-25 /HPF (0-5) H 04/27/17 15:08 Ur Squamous Epith Cells FEW Squamous (<= Few) 04/27/17 15:08 Amorphous Sediment Moderate /LPF 04/27/17 15:08 Urine Bacteria Many /HPF (None Seen) H 04/27/17 15:08 Urine Casts 6-10 Fine Granular /LPF 04/27/17 15:08 Ur Microscopic Review INDICATED 04/27/17 15:08 Urine Culture Comments INDICATED 04/27/17 15:08
[2017-04-29] MEDS: predniSONE 20 MG TABLET PO SCH (10:11)
[2017-04-29] MEDS: AZITHROMYCIN INJ 500 MG in SODIUM CHLORIDE 0.9% 250 ML IV SCH (10:16)
--- NOTE | 2017-04-29 10:24 | XRAY Report ---
TWO VIEW CHEST: 04/29/2017 CLINICAL INDICATION: Followup infiltrate. COMPARISON: 04/27/2017. FINDINGS: Frontal and lateral views of the chest demonstrate a normal cardiac silhouette. Emphysemat ous changes are stable. Left basilar infiltrate persists, with trace effusion. No pneumothorax. IMPRESSION: PERSISTENT LEFT BASILAR INFILTRATE WITH TRACE EFFUSION, SUPERIMPOSED UPON EMPHYSEMA. JOB #: [id number] EXT JOB #:[id number]
[2017-04-29] MEDS: ONDANSETRON 4 MG/2 ML VIAL IVP PRN (11:54)
[2017-04-29] MEDS: SODIUM CHLORIDE 0.9% 1,000 ML IV SCH (13:54)
[2017-04-30] MEDS: SODIUM CHLORIDE 0.9% 1,000 ML IV SCH ×2 (00:13→15:22)
[2017-04-30] MEDS: SODIUM CHLORIDE FLUSH 0.9% 10 ML SYRINGE IVP SCH ×3 (05:31→22:49)
[2017-04-30] MEDS: HYDROcod/ACETAM 5/325 MG TABLET PO PRN (05:40)
[2017-04-30] MEDS: ONDANSETRON 4 MG/2 ML VIAL IVP PRN ×3 (05:40→12:50)
[2017-04-30 05:48] LABS: BASOPHILS % (AUTO) 0.1 %; HCT - HEMATOCRIT 34.4 % (37.0-47.0); HGB - HEMOGLOBIN 11.6 g/dL (12.0-16.0); LYMPHOCYTES % (AUTO) 9.8 %; MEAN CORPUSCULAR HEMOGLOBIN 30.4 pg (27.0-31.0); MEAN CORPUSCULAR HGB CONC 33.7 g/dL (32.0-36.0); MEAN CORPUSCULAR VOLUME 90.4 fL (81.0-99.0); MEAN PLATELET VOLUME 7.7 fL (7.9-10.8); MONOCYTES % (AUTO) 9.4 %; NEUTROPHILS % (AUTO) 80.7 %; RED CELL DISTRIBUTION WIDTH 14.1 % (12.0-15.0); UNCORRECTED WHITE BLOOD COUNT 13.1 x10^3/uL; WHITE BLOOD COUNT 13.1 x10^3/uL (4.8-10.8)
[2017-04-30 05:50] LABS: CALCIUM 8.5 mg/dL (8.5-10.3); CREATININE 0.5 mg/dL (0.4-1.0); POTASSIUM 3.7 mmol/L (3.5-5.0)
[2017-04-30 06:22] LABS: BAND NEUTROPHILS % (MANUAL) 10 %; LYMPHOCYTES % (MANUAL) 10 %; NEUTROPHILS % (MANUAL) 68 %; NP AUTO DIFFERENTIAL? YES; NP MAN DIFFERENTIAL? NO; PLATELET ESTIMATE, MANUAL NORMAL (130-450,000) (NORMAL); TOTAL CELLS COUNTED 100
[2017-04-30] MEDS: IPRATROPIUM/ALBUTEROL 3 ML NEB INH PRN ×2 (07:30→15:00)
[2017-04-30] MEDS: SODIUM CHLORIDE FLUSH 0.9% 10 ML SYRINGE IVP PRN (08:31)
[2017-04-30] MEDS: cefTRIAXone 2 GM in SODIUM CHLORIDE 0.9% MINIBAG 100 ML IV SCH (08:35)
[2017-04-30] MEDS: predniSONE 20 MG TABLET PO SCH (08:35)
[2017-04-30] MEDS: SACCHAROMYCES BOULARDII 250 MG CAPSULE PO SCH ×2 (08:35→16:20)
[2017-04-30] MEDS: METHADONE 5 MG TABLET PO SCH ×3 (08:35→21:16)
[2017-04-30] MEDS: POLYETHYLENE GLYCOL 3350 17 GM PACKET PO SCH (08:36)
[2017-04-30] MEDS: DOCUSATE SODIUM 250 MG CAPSULE PO SCH (08:36)
[2017-04-30] MEDS: ENOXAPARIN 40 MG/0.4 ML SYRINGE SUBQ SCH (08:36)
[2017-04-30] MEDS: OXYBUTYNIN 5MG TABLET PO SCH ×2 (08:36→21:22)
[2017-04-30] MEDS: AZITHROMYCIN INJ 500 MG in SODIUM CHLORIDE 0.9% 250 ML IV SCH (09:29)
--- NOTE | 2017-04-30 13:47 | PROVIDER PROGRESS NOTE ---
Assessment/Plan - Problem List (1) Acute exacerbation of chronic obstructive pulmonary disease (COPD) Assessment/Plan: (1) Acute exacerbation of chronic obstructive pulmonary disease (COPD) and Acute respiratory failure with hypoxia Assessment/Plan: Patient presented with pneumonia and COPD exacerbation Had increasing O2 needs with tachycardia in the 140s, tachypnic and in respiratory distress ABG showed hypoxia Initially admitted to ICU and started on abx and copd tx some improvement by HD 2 and pt was transferred to the medical [facility]. continue nebs and tx as below pt O2 sats 78% on RA, very labored breathing with getting up to the BR will need home oxygen. (2) CAP (community acquired pneumonia) Assessment/Plan: CXR showed left lung base opacity Patient presented with respiratory distress and was in hypoxic respiratory failure She is having left sided pleuritic cp and has vicodin for break through pain Continue IV ceftriaxone and azithromycin started 04/27 complete 7 day course (3) COPD exacerbation Assessment/Plan: Likely secondary to CAP and long hx of tobacco dependence Patient with history of emphysema Presented with hypoxic respiratory failure overall improving, decreased oxygen needs today at 4-5 L NC Continue Duonebs, continue prednisone 60 mg daily, will dc on prednisone 40 mg daily Encourage tobacco cessation (4) UTI (urinary tract infection) Assessment/Plan: Presented with leukocytosis and UA positive UCx >100k E coli Continue ceftriaxone IV 5) tobacco dependence encouraged cessation and offered assistance including nicotine patch and chantix. pt wants to quite but does not feel she needs any assitance at this time. 6) Narcotic dependence continuous use pt has been on methadone long-term. She states it was started for abd pain. home methadone dose was continued - Current Meds Current Meds: Current Medications Generic Name Dose Route Start Last Admin Trade Name Freq PRN Reason Stop Dose Admin Acetaminophen 650 mg 04/27/17 15:39 04/28/17 21:35 Tylenol PO 650 mg Q4HR PRN Administration Pain 1 to 4 Acetaminophen/Hydrocodone Bitart 1 tab 04/27/17 15:39 04/30/17 05:40 [place] 5/325 PO 1 tab Q4HR PRN Administration Pain 5 to 7 Albuterol/Ipratropium 3 ml 04/27/17 15:59 04/30/17 07:30 Duoneb INH 3 ml Q4HR PRN Administration Wheezing Docusate Sodium 250 - 500 mg 04/28/17 17:45 06/29/17 08:36 Colace 250mg Capsule PO Not Given DAILY RAYRAY Enoxaparin Sodium 40 mg 04/27/17 09:00 04/30/17 08:36 Lovenox SUBQ 40 mg DAILY RAYRAY Administration Sodium Chloride 1,000 mls @ 80 mls/hr 04/27/17 16:00 04/30/17 00:13 Normal Saline 0.9% IV 80 mls/hr .[id number] RAYRAY Administration Azithromycin 500 mg/ Sodium 250 mls @ 250 mls/hr 04/28/17 10:00 04/30/17 09:29 Chloride IV 250 mls/hr DAILY@1000 RAYRAY Administration Ceftriaxone Sodium 2 gm/ 100 mls @ 200 mls/hr 04/28/17 09:00 04/30/17 08:35 Sodium Chloride IV 200 mls/hr DAILY RAYRAY Administration Methadone HCl 5 mg 04/27/17 21:00 04/29/17 20:52 PO 5 mg QPM RAYRAY Administration Methadone HCl 7.5 mg 04/28/17 08:00 04/30/17 08:35 PO 7.5 mg 0800 RAYRAY Administration Methadone HCl 5 mg 04/27/17 17:15 04/30/17 12:49 PO 5 mg 1200 RAYRAY Administration Ondansetron HCl 4 mg 04/27/17 16:31 04/30/17 12:50 Zofran Inj IVP 4 mg Q4HR PRN Administration Nausea / Vomiting Oxybutynin Chloride 5 mg 04/27/17 21:00 04/30/17 08:36 Ditropan PO 5 mg BID RAYRAY Administration Polyethylene Glycol 17 gm 04/28/17 09:00 04/30/17 08:36 Miralax PO Not Given DAILY RAYRAY Prednisone 60 mg 04/29/17 09:30 04/30/17 08:35 Deltasone PO 60 mg DAILYWM RAYRAY Administration Saccharomyces Boulardii 250 mg 04/28/17 08:00 04/30/17 08:35 Florastor PO 250 mg BIDWM RAYRAY Administration Sodium Chloride 10 ml 04/27/17 15:39 04/30/17 08:31 Normal Saline Flush 0.9% IVP 10 ml PRN PRN Administration NEEDED PER PROVIDER ORDERS Sodium Chloride 10 ml 04/27/17 22:00 04/30/17 05:31 Normal Saline Flush 0.9% IVP 10 ml Q8HR RAYRAY Administration - Lab Result Lab results reviewed: Yes Fish Bone Diagrams: 04/30/17 05:04 04/30/17 05:04 Subjective - Subjective Patient Reports: Shortness of Breath (pt very sob after getting up to go to the BR with oxygen off.), Other Objective Vital Signs: Vital Signs - 24 hr 04/29/17 04/29/17 04/29/17 15:15 17:00 19:53 Temperature 36.7 C Heart Rate 61 77 Heart Rate [ 74 Brachial] Respiratory 18 16 16 Rate Blood Pressure 132/66 H [Left Brachial artery] Blood Pressure [Right Brachial artery] O2 Saturation 93 04/29/17 04/30/17 04/30/17 20:26 01:00 05:00 Temperature 37.1 C 37.2 C 37.4 C Heart Rate Heart Rate [ 84 72 85 Brachial] Respiratory 20 18 18 Rate Blood Pressure [Left Brachial artery] Blood Pressure 128/68 139/64 H 162/84 H [Right Brachial artery] O2 Saturation 95 97 92 04/30/17 07:30 Temperature Heart Rate 65 Heart Rate [ Brachial] Respiratory 18 Rate Blood Pressure [Left Brachial artery] Blood Pressure [Right Brachial artery] O2 Saturation Oxygen O2 Source Simple Mask I&O (Last 24 Hrs): Intake and Output Totals x24h 04/28/17 04/29/17 04/30/17 23:59 23:59 23:59 Intake Total 3385 3458 636 Output Total 275 Balance 3110 3458 636 General: Alert, Oriented x3, Other (labored breathing) Cardiovascular: Regular rate, No murmurs Respiratory: Chest non-tender, No respiratory distress, Breath sounds nml Abdomen: Normal bowel sounds, Soft, No tenderness Extremities: No clubbing, No edema, No tenderness/swelling Skin: No rashes - Results Results: Laboratory Results WBC 13.1 x10^3/uL (4.8-10.8) H 04/30/17 05:04 RBC 3.80 10^6/uL (4.20-5.40) L 04/30/17 05:04 Hgb 11.6 g/dL (12.0-16.0) L 04/30/17 05:04 Hct 34.4 % (37.0-47.0) L 04/30/17 05:04 MCV 90.4 fL (81.0-99.0) 04/30/17 05:04 MCH 30.4 pg (27.0-31.0) 04/30/17 05:04 MCHC 33.7 g/dL (32.0-36.0) 04/30/17 05:04 RDW 14.1 % (12.0-15.0) 04/30/17 05:04 Plt Count 229 10^3/uL (130-450) 04/30/17 05:04 MPV 7.7 fL (7.9-10.8) L 04/30/17 05:04 Neut # Not Reportable 04/30/17 05:04 Lymph # Not Reportable 04/30/17 05:04 [place] # Not Reportable 04/30/17 05:04 Eos # Not Reportable 04/30/17 05:04 Baso # Not Reportable 04/30/17 05:04 Absolute Nucleated RBC Not Reportable 04/30/17 05:04 Total Counted 100 04/30/17 05:04 Band Neuts % (Manual) 10 % (0-10) 04/30/17 05:04 Neutrophils # (Manual) 10.2 10^3/uL (1.5-6.6) H 04/30/17 05:04 Lymphocytes # (Manual) 1.3 10^3/uL (1.5-3.5) L 04/30/17 05:04 Monocytes # (Manual) 1.6 10^3/uL (0.0-1.0) H 04/30/17 05:04 Nucleated RBCs Not Reportable 04/30/17 05:04 Differential Comment MANUAL DIFFERENTIAL 04/30/17 05:04 Platelet Estimate NORMAL (130-450,000) (NORMAL) 04/30/17 05:04 Platelet Morphology NORMAL APPEARANCE (NORMAL) 04/27/17 14:29 RBC Morph Micro Appear NORMAL APPEARANCE (NORMAL) 04/30/17 05:04 Bld Gas Analysis Time 1657 04/27/17 16:50 Sample Site RIGHT RADIAL 04/27/17 16:50 ABG pH 7.38 (7.35-7.45) 04/27/17 16:50 ABG pCO2 37 mmHg (34-45) 04/27/17 16:50 ABG pO2 58 mmHg (80-100) L 04/27/17 16:50 ABG HCO3 21.6 mmol/L (22.0-26.0) L 04/27/17 16:50 ABG Total CO2 22.8 MMOL/L (21.0-29.0) 04/27/17 16:50 ABG O2 Saturation 85 % (94-98) L* 04/27/17 16:50 ABG Oximetry Spot Check 92 % 04/27/17 16:50 ABG Base Excess -3.0 mmol/L (-2.0-3.0) L 04/27/17 16:50 Leonel Test POSITIVE 04/27/17 16:50 O2 Delivery Device OXYMASK 04/27/17 16:50 O2 Liters/Min 10.00 LPM 04/27/17 16:50 Sodium 137 mmol/L (135-145) 04/30/17 05:04 Potassium 3.7 mmol/L (3.5-5.0) 04/30/17 05:04 Chloride 102 mmol/L (101-111) 04/30/17 05:04 Carbon Dioxide 29 mmol/L (21-32) 04/30/17 05:04 Anion Gap 6.0 (6-13) 04/30/17 05:04 BUN 13 mg/dL (6-20) 04/30/17 05:04 Creatinine 0.5 mg/dL (0.4-1.0) 04/30/17 05:04 Estimated GFR (MDRD) 130 (>89) 04/30/17 05:04 Glucose 88 mg/dL (70-100) 04/30/17 05:04 Lactic Acid 1.8 mmol/L (0.5-2.2) 04/27/17 14:49 Calcium 8.5 mg/dL (8.5-10.3) 04/30/17 05:04 Total Bilirubin 1.5 mg/dL (0.2-1.0) H 04/27/17 14:29 AST 30 IU/L (10-42) 04/27/17 14:29 ALT 17 IU/L (10-60) 04/27/17 14:29 Alkaline Phosphatase 74 IU/L (42-121) 04/27/17 14:29 Total Protein 9.0 g/dL (6.7-8.2) H 04/27/17 14:29 Albumin 3.8 g/dL (3.2-5.5) 04/27/17 14:29 Globulin 5.2 g/dL (2.1-4.2) H 04/27/17 14:29 Albumin/Globulin Ratio 0.7 (1.0-2.2) L 04/27/17 14:29 Lipase 16 U/L (22-51) L 04/27/17 14:29 Urine Color YELLOW 04/27/17 15:08 Urine Clarity CLEAR (CLEAR) 04/27/17 15:08 Urine pH 6.0 PH (5.0-7.5) 04/27/17 15:08 Ur Specific [place] >=1.030 (1.002-1.030) H 04/27/17 15:08 Urine Protein >=300 mg/dL (NEGATIVE) H 04/27/17 15:08 Urine Glucose (UA) NEGATIVE mg/dL (NEGATIVE) 04/27/17 15:08 Urine Ketones NEGATIVE mg/dL (NEGATIVE) 04/27/17 15:08 Urine Occult Blood LARGE (NEGATIVE) H 04/27/17 15:08 Urine Nitrite POSITIVE (NEGATIVE) H 04/27/17 15:08 Urine Bilirubin NEGATIVE (NEGATIVE) 04/27/17 15:08 Urine Urobilinogen 0.2 (NORMAL) E.U./dL (NORMAL) 04/27/17 15:08 Ur Leukocyte Esterase NEGATIVE (NEGATIVE) 04/27/17 15:08 Urine RBC 11-25 /HPF (0-5) H 04/27/17 15:08 Urine WBC 11-25 /HPF (0-5) H 04/27/17 15:08 Ur Squamous Epith Cells FEW Squamous (<= Few) 04/27/17 15:08 Amorphous Sediment Moderate /LPF 04/27/17 15:08 Urine Bacteria Many /HPF (None Seen) H 04/27/17 15:08 Urine Casts 6-10 Fine Granular /LPF 04/27/17 15:08 Ur Microscopic Review INDICATED 04/27/17 15:08 Urine Culture Comments INDICATED 04/27/17 15:08
[2017-05-01] MEDS: SODIUM CHLORIDE 0.9% 1,000 ML IV SCH (00:01)
[2017-05-01] MEDS: SODIUM CHLORIDE FLUSH 0.9% 10 ML SYRINGE IVP SCH (05:31)
[2017-05-01] MEDS: METHADONE 5 MG TABLET PO SCH ×2 (08:50→11:47)
[2017-05-01] MEDS: predniSONE 20 MG TABLET PO SCH (08:51)
[2017-05-01] MEDS: SACCHAROMYCES BOULARDII 250 MG CAPSULE PO SCH (08:53)
[2017-05-01] MEDS: OXYBUTYNIN 5MG TABLET PO SCH (08:53)
[2017-05-01] MEDS: cefTRIAXone 2 GM in SODIUM CHLORIDE 0.9% MINIBAG 100 ML IV SCH (08:54)
[2017-05-01] MEDS: ENOXAPARIN 40 MG/0.4 ML SYRINGE SUBQ SCH (08:56)
[2017-05-01] MEDS: POLYETHYLENE GLYCOL 3350 17 GM PACKET PO SCH (08:57)
[2017-05-01] MEDS: AZITHROMYCIN INJ 500 MG in SODIUM CHLORIDE 0.9% 250 ML IV SCH (10:24)
--- NOTE | 2017-05-01 11:23 | Discharge Plan ---
Discharge Plan Disposition: 01 Home, Self Care Condition: Stable Diet: Regular Activity Restrictions: No Restrictions (Stop smoking) Instruction Topics: COPD, Disease Chronic Lung Quit Smoking No Smoking: If you smoke, Please STOP! Call for help.
--- NOTE | 2017-05-01 11:36 | Discharge Plan ---
Discharge Plan Disposition: 01 Home, Self Care Condition: Stable Prescriptions: Albuterol 2.5 mg INH RTQ4H PRN #60 neb PRN Reason: Wheezing Cefuroxime Axetil [Ceftin] 500 mg PO Q12H #6 tablet predniSONE [Deltasone] 40 mg PO DAILYWM #5 tablet Ipratropium/Albuterol [Duoneb] 3 ml INH TID #90 neb Activity Restrictions: No Restrictions (Stop smoking) Instruction Topics: COPD, Disease Chronic Lung Quit Smoking No Smoking: If you smoke, Please STOP! Call for help.
[2017-05-01] MEDS: DOCUSATE SODIUM 250 MG CAPSULE PO SCH (11:43)
[2017-05-01] MEDS: ONDANSETRON 4 MG/2 ML VIAL IVP PRN (11:47)
[2017-05-01] MEDS: HYDROcod/ACETAM 5/325 MG TABLET PO PRN (11:50)
[2017-05-01 11:52] VITALS: BP 163/86
--- NOTE | 2017-05-04 08:47 | DISCHARGE SUMMARY ---
DISCHARGE DIAGNOSES 1. Acute exacerbation of chronic obstructive pulmonary disease. 2. Community-acquired pneumonia. 3. Acute respiratory failure with hypoxia. 4. Urinary tract infection. BRIEF HISTORY OF PRESENTING ILLNESS: The patient presented with URI symptoms, cough and cold symptoms for approximately a week. She progressed to have shortness of breath and on evaluation was found to have pneumonia and hypoxia. HOSPITAL COURSE BY PROBLEM 1. Acute respiratory failure with hypoxia, and acute exacerbation of chronic obstructive pulmonary disease. The patient presented with pneumonia and COPD exacerbation. She had hypoxia and tachycardia, and was clearly in respiratory distress. She was initially admitted to the ICU and started on antibiotics, bronchodilators and steroids. The following day she was somewhat better and was transferred to the medical floor, but still required 4-6 liters of supplemental oxygen, which was slowly weaned, and by the time of discharge she was on 1-3 liters of supplemental oxygen and her room air saturation was down to 78%. The patient was evaluated by Respiratory Therapy. Her oxygen saturation per their measurement was 86% on room air and 85% with ambulation. She was discharged home on 2 liters of supplemental oxygen. She understands the importance of using oxygen continuously and not smoking while she is using the oxygen. 2. Community-acquired pneumonia. Patient was found to have a left lung base opacity. She was started on ceftriaxone and azithromycin, and discharged to home on cefuroxime 500 mg twice daily for an additional 3 days, to complete a 7- day course. 3. Urinary tract infection. UA was abnormal. Culture grew greater than 100,000 E coli. She was treated with antibiotics for pneumonia, which will cover her urinary tract infection. 4. Tobacco dependence. The patient was encouraged to quit smoking tobacco. She was offered a nicotine patch and Chantix, but stated she did not need it while in the hospital. She reports good social support at home to help her quit smoking. 5. Chronic narcotic dependence. The patient was continued on her usual home dose of methadone. I encouraged her to taper to a lower dose due to associated risks of chronic opioid therapy. MEDICATIONS ON DISCHARGE Patient was given prescriptions for: 1. Albuterol 2.5 mg nebulizer p.r.n. wheezing. 2. DuoNeb 3 mL inhaled t.i.d. 3. Cefuroxime 500 mg every 12 hours for 3 days. 4. Prednisone 40 mg daily for 5 days. Home medications were continued, which include: 1. Methadone 5 mg twice a day and 7.5 mg in the morning. 2. Oxybutynin 5 mg twice daily. Patient was encouraged to follow up with her primary care provider and to discontinue any inhalation products including tobacco and marijuana. I discussed with the patient that she was hypoxic on room air in the mid 80s, which improved to the low 90s on 2 L, and encouraged her to use 2 L continuously on discharge. Forty-five minutes spent on discharge of patient. ALEAH
== END 2017-05-01 13:45 | disposition home or self-care (01) | DRG 190 ==
LOC: ED 14:12 → ICU 15:39 → MS 04-28 18:00
PROVIDERS: ADMIT Internal Medicine; ATTEND Internal Medicine
DX: J44.0 Chronic obstructive pulmonary disease with (acute) lower respiratory infection (principal); J18.9 Pneumonia, unspecified organism; J96.01 Acute respiratory failure with hypoxia; R09.02 Hypoxemia; F17.200 Nicotine dependence, unspecified, uncomplicated; N39.0 Urinary tract infection, site not specified; Z79.891 Long term (current) use of opiate analgesic; F11.20 Opioid dependence, uncomplicated; J44.1 Chronic obstructive pulmonary disease with (acute) exacerbation; B96.20 Unspecified Escherichia coli [E. coli] as the cause of diseases classified elsewhere; F17.210 Nicotine dependence, cigarettes, uncomplicated; Z86.19 Personal history of other infectious and parasitic diseases; Z85.51 Personal history of malignant neoplasm of bladder; Z71.6 Tobacco abuse counseling
CPT/HCPCS: 36415; 36600; 51701; 71010; 71020; 80048; 80053; 81001; 81003; 82803; 83605; 83690; 85025; 87040; 87077; 87086; 87150; 94640; 94761; 96361; 96365; 96368; 96375; 99284; 99285; 99406

== ENCOUNTER 2017-05-11 07:03 | Outpatient (CLI) | payer MEDICARE, MEDICAID ==
[2017-05-11 18:55] LABS: BASOPHILS # (AUTO) 0.1 10^3/uL (0.0-0.1); BASOPHILS % (AUTO) 1.4 %; EOSINOPHILS # (AUTO) 0.1 10^3/uL (0.0-0.7); EOSINOPHILS % (AUTO) 0.7 %; HCT - HEMATOCRIT 38.3 % (37.0-47.0); HGB - HEMOGLOBIN 12.9 g/dL (12.0-16.0); LYMPHOCYTES # (AUTO) 1.7 10^3/uL (1.5-3.5); LYMPHOCYTES % (AUTO) 20.5 %; MEAN CORPUSCULAR HEMOGLOBIN 30.2 pg (27.0-31.0); MEAN CORPUSCULAR HGB CONC 33.7 g/dL (32.0-36.0); MEAN CORPUSCULAR VOLUME 89.5 fL (81.0-99.0); MEAN PLATELET VOLUME 7.3 fL (7.9-10.8); MONOCYTES % (AUTO) 11.8 %; NEUTROPHILS # (AUTO) 5.5 10^3/uL (1.5-6.6); NEUTROPHILS % (AUTO) 65.6 %; RED BLOOD COUNT 4.28 10^6/uL (4.20-5.40); UNCORRECTED WHITE BLOOD COUNT 8.4 x10^3/uL; WHITE BLOOD COUNT 8.4 x10^3/uL (4.8-10.8)
[2017-05-11 19:08] LABS: BILIRUBIN,TOTAL 0.3 mg/dL (0.2-1.0); CALCIUM 8.7 mg/dL (8.5-10.3); CREATININE 0.6 mg/dL (0.4-1.0); POTASSIUM 3.6 mmol/L (3.5-5.0); TOTAL PROTEIN 6.9 g/dL (6.7-8.2)
== END 2017-05-11 07:04 ==
LOC: LAB.N 07:03
PROVIDERS: ATTEND Nurse Practitioner Gerontology
DX: E87.1 Hypo-osmolality and hyponatremia (principal)
CPT/HCPCS: 36415; 80053; 85025

== ENCOUNTER 2018-01-25 08:00 | Outpatient (CLI) | payer MEDICARE ==
[2018-01-25 19:47] LABS: ALBUMIN 3.9 g/dL (3.2-5.5); ALBUMIN/GLOBULIN RATIO 1.1 (1.0-2.2); BILIRUBIN,TOTAL 0.6 mg/dL (0.2-1.0); CREATININE 0.5 mg/dL (0.4-1.0); TOTAL PROTEIN 7.5 g/dL (6.7-8.2)
== END 2018-01-25 08:01 ==
LOC: LAB.N 08:00
PROVIDERS: ATTEND Nurse Practitioner Gerontology
DX: E87.1 Hypo-osmolality and hyponatremia (principal)
CPT/HCPCS: 36415; 80053

== ENCOUNTER 2018-01-25 14:59 | Outpatient (CLI) | payer MEDICAID, MEDICARE ==
--- NOTE | 2018-01-26 13:07 | Mammography Report ---
DIGITAL SCREENING MAMMOGRAM: 01/25/2018 CLINICAL INDICATION: A 52-year-old for screening. COMPARISON: 09/2009, 12/2008, 06/2008, 05/2008. TECHNIQUE: Routine CC and MLO projections were obtained of the breasts. FINDINGS: The breasts again demonstrate heterogeneously dense fibroglandular parenchyma bilaterally. Coarse and punctate, typically benign calcifications are present. The circumscribed nodule in the right lower inner posterior breast is stable. No suspicious masses, clustered microcalcifications, or regions of architectural distortion are identified. IMPRESSION: BENIGN FINDINGS. RECOMMENDATION: Routine annual screening unless otherwise clinically indicated. BIRADS CATEGORY 2 - BENIGN FINDINGS. STANDARD QUALIFYING STATEMENTS: 1. This examination was reviewed with the aid of Computer-Aided Detection (CAD). 2. A negative or benign imaging report should not delay biopsy if clinically suspicious findings are present. Consider surgical consultation if warranted. More than 5% of cancers are not identified by imaging. 3. Dense breasts may obscure an underlying neoplasm. TD: 01/26/2018 13:06
== END 2018-01-25 15:00 | disposition home or self-care (01) ==
LOC: DI.N 14:59
PROVIDERS: ATTEND Nurse Practitioner Gerontology
DX: Z12.31 Encounter for screening mammogram for malignant neoplasm of breast (principal)
CPT/HCPCS: 77067

== ENCOUNTER 2018-08-16 22:33 | Inpatient (IN) | payer MEDICARE, MEDICAID ==
--- NOTE | 2018-08-17 00:01 | XRAY Report ---
Reason: soa Procedure Date: 08/16/2018 Accession Number: [id number] / [id number] Procedure: XR - Chest 1 View X-Ray CPT Code: 92641 FULL RESULT: EXAM: CHEST RADIOGRAPHY EXAM DATE: 08/16/2018 11:35 PM. CLINICAL HISTORY: Short of breath. COMPARISON: CHEST 2 VIEW PA/LAT 04/29/2017 9:14 AM CHEST 2 VIEW PA/LAT 07/09/2016 2:47 PM CHEST W/ 07/31/2016 11:45 AM. TECHNIQUE: 1 view. FINDINGS: Lungs/Pleura: Known emphysema with bibasilar airspace opacities. No gross pneumothorax or large effusion. Mediastinum: Within exam limitations, the cardiomediastinal contour is normal. Other: None. IMPRESSION: 1. Bibasilar pneumonia. 2. Known emphysema. RADIA
--- NOTE | 2018-08-17 00:38 | ED Physician Documentation ---
PD HPI DYSPNEA - Stated complaint Stated Complaint: SOA/CONGESTION - Chief complaint Chief Complaint: Resp - History obtained from History obtained from: Patient - History of Present Illness Timing - onset: How many days ago (5) Timing - duration: Days (5) Timing - details: Gradual onset Pain level max: 0 Pain level now: 0 Improved by: Rest Worsened by: Exertion, Laying flat, Coughing Associated symptoms: Cough, Wheezing. No: Fever, Hemoptysis, Chest pain / discomfort, Palpitations, Diaphoresis, Bilateral edema, Unilateral edema Similar symptoms before: Diagnosis (CHF, COPD, pneumonia (admitted last year for this)) Recently seen: Not recently seen - Additional information Additional information: c/o 5-7 days gradual onset, worsening dyspnea, cough, chest congestion Review of Systems Constitutional: denies: Fever, Chills, Sweats Eyes: reports: Reviewed and negative Ears: reports: Reviewed and negative Nose: reports: Reviewed and negative Throat: reports: Reviewed and negative Cardiac: reports: Reviewed and negative Respiratory: reports: Dyspnea, Cough, Wheezing GI: reports: Reviewed and negative : denies: Dysuria, Frequency Skin: reports: Reviewed and negative Musculoskeletal: reports: Reviewed and negative Neurologic: reports: Reviewed and negative PD PAST MEDICAL HISTORY - Past Medical History Past Medical History: Yes Cardiovascular: None Respiratory: Emphysema Neuro: None Endocrine/Autoimmune: None GI: C.difficile : Frequency HEENT: None Psych: None Musculoskeletal: None Derm: None - Past Surgical History 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 05/01/17 Ipratropium/Albuterol [Duoneb] 3 ml INH TID #90 [facility] 05/01/17 cefUROXime axetil [Ceftin] 500 mg PO Q12H #6 tablet 05/01/17 predniSONE [Deltasone] 40 mg PO DAILYWM #5 tablet 06/30/17 - Allergies Allergies/Adverse Reactions: Allergies Allergy/AdvReac Type Severity Reaction Status Date / Time No Known Drug Allergies Allergy Verified 08/16/18 22:50 - Social History Does the pt smoke?: Yes Smoking Status: Current every day smoker Does the pt drink ETOH?: No Does the pt have substance abuse?: Yes - Immunizations Immunizations are current?: Yes - POLST Patient has POLST: No PD ED PE NORMAL - Vitals Vital signs reviewed: Yes - General General: Alert and oriented X 3, No acute distress, Well developed/nourished - HEENT HEENT: Moist mucous membranes - Neck Neck: Supple, no meningeal sign - Cardiac Cardiac: RRR, No murmur - Respiratory Respiratory: No respiratory distress - Abdomen Abdomen: Soft, Non tender - Back Back: No CVA TTP - Derm Derm: Normal color, Warm and dry - Extremities Extremities: No edema - Neuro Neuro: Alert and oriented X 3 PD ED PE EXPANDED - Respiratory Respiratory: Wheezing (end-expiratory wheezing ), Rales (bibasilar course rales) Results - Vitals Vitals: Vital Signs - 24 hr 08/16/18 08/16/18 08/16/18 22:46 23:28 23:34 Temperature 37.2 C Heart Rate 129 H 103 H 106 H Respiratory 20 19 19 Rate Blood Pressure 119/77 132/88 H O2 Saturation 86 L 93 Oxygen O2 Source Nasal cannula Oxygen Flow Rate 2 - EKG (time done) No standard instances Rate: Rate (enter#) (113), Tachy Rhythm: Sinus tachycardia, LAE [place]: Normal Intervals: Normal NM QRS: Normal Ischemia: Normal ST segments - Rads (name of study) chest xray Radiology: Prelim report reviewed, See rad report PD MEDICAL DECISION MAKING - ED course Complexity details: reviewed results, re-evaluated patient, considered differential, d/w patient ED course: pulse ox mid 80s RA on arrival. Improves to mid 90s during duoneb but 90/low 90s with 3 liters NC and drops to mid 80s with 3 liters NC when she falls asleep. Given second neb (albuterol) with improvement to low 90s but again falls to 90 with 3 liters NC. Taken off oxygen, she drops to 85% within 2-3 minutes (at rest). Departure - Departure Disposition: [facility] DC/Xfer Clinical Impression: Pneumonia Condition: Stable Discharge Date/Time: 08/17/18 03:45
[2018-08-17] MEDS ORDERED: AZITHROMYCIN INJ 500 MG in SODIUM CHLORIDE 0.9% 250 ML IV STA (00:50)
[2018-08-17] MEDS ORDERED: cefTRIAXone 1 GM in SODIUM CHLORIDE 0.9% MINIBAG 100 ML IV STA (00:50)
[2018-08-17] MEDS ORDERED: IPRATROPIUM/ALBUTEROL 3 ML NEB INH STA (00:52)
[2018-08-17 01:15] LABS: BASOPHILS # (AUTO) 0.1 10^3/uL (0.0-0.1); BASOPHILS % (AUTO) 0.4 %; HGB - HEMOGLOBIN 14.2 g/dL (12.0-16.0); LYMPHOCYTES # (AUTO) 0.8 10^3/uL (1.5-3.5); MEAN CORPUSCULAR HEMOGLOBIN 30.8 pg (27.0-31.0); MEAN CORPUSCULAR HGB CONC 34.1 g/dL (32.0-36.0); MEAN CORPUSCULAR VOLUME 90.2 fL (81.0-99.0); MEAN PLATELET VOLUME 7.8 fL (7.9-10.8); MONOCYTES # (AUTO) 1.3 10^3/uL (0.0-1.0); MONOCYTES % (AUTO) 7.9 %; NEUTROPHILS # (AUTO) 14.5 10^3/uL (1.5-6.6); NEUTROPHILS % (AUTO) 86.7 %; PLT - PLATELET COUNT 220 10^3/uL (130-450); RED BLOOD COUNT 4.62 10^6/uL (4.20-5.40); RED CELL DISTRIBUTION WIDTH 12.9 % (12.0-15.0); WHITE BLOOD COUNT 16.7 x10^3/uL (4.8-10.8)
[2018-08-17 01:16] LABS: CALCIUM 9.1 mg/dL (8.5-10.3); CREATININE 0.9 mg/dL (0.4-1.0)
[2018-08-17] MEDS ORDERED: ALBUTEROL NEB 2.5 MG/3 ML INH STA (01:51)
[2018-08-17] MEDS ORDERED: DEXAMETHASONE 10 MG/ML VIAL IVP STA (01:51)
[2018-08-17] MEDS ORDERED: ONDANSETRON 4 MG/2 ML VIAL IVP STA (01:57)
[2018-08-17] MEDS ORDERED: ZOLPIDEM 5 MG TABLET PO PRN (03:00)
[2018-08-17] MEDS ORDERED: SODIUM CHLORIDE FLUSH 0.9% 10 ML SYRINGE IVP PRN (03:00)
[2018-08-17] MEDS ORDERED: PROCHLORPERAZINE 10 MG/2 ML VIAL IVP PRN (03:00)
[2018-08-17] MEDS ORDERED: ONDANSETRON 4 MG/2 ML VIAL IVP PRN (03:00)
[2018-08-17] MEDS ORDERED: PROMETHAZINE 25 MG/1 ML VIAL IM PRN (03:00)
--- NOTE | 2018-08-17 03:05 | HISTORY & PHYSICAL EXAMINATION ---
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 She states that she was in her normal state of health until about 1 week ago when she began to develop cold-like symptoms. She states the symptoms started with a sore throat and then she began to develop a cough. She states that over the last 3-4 days her symptoms have become significantly worse. She states that she has had an increasing cough with thick yellowish green sputum production and is becoming increasingly short of breath. She also states that she has been having chills and chest tightness. She states that the symptoms are very similar to when she was admitted 1 year ago for pneumonia. She states that after her admission for pneumonia a year ago she was sent home on oxygen which she took for a few weeks but then states her oxygen levels were normal so she returned the oxygen. She also states that she was sent home with some inhalers which she has never taken since that hospitalization. The patient also states that she stopped smoking after that hospitalization but did have a relapse for a little bit but now only smokes pot. The patient also states that she has been having burning when she urinates and is worried that she has a urinary tract infection. The patient also admits to muscle aches and pain all over. Patient denies any headaches, blurred vision, runny nose, difficulty swallowing, palpitations, orthopnea, PND, increased lower extremity swelling, nausea, vomiting, diarrhea, constipation, changes in her abdominal pain, joint swelling, neck stiffness, recent unintentional weight loss, changes in her appetite, skin changes, skin rash, hair loss, polyuria, polydipsia, night sweats or any focal neurologic deficits. On presentation to the emergency department the patient was afebrile but tachycardic with a heart rate of 129, tachypneic in the 20s and hypoxic with an oxygen saturation of 86% on room air. The patient underwent routine lab work which revealed a leukocytosis with a WBC of 16.7, hyponatremia with a sodium of 130 and a mildly elevated glucose of 132. The patient's BNP and troponin were negative. The patient's urine analysis was positive for a urinary tract infection. The patient underwent a chest x-ray which revealed a bibasilar pneumonia and emphysema. In the emergency department the patient was given nebulizer treatments and antibiotics but continued to have wheezing and hypoxia therefore she was admitted to the [facility] for treatment of community- acquired pneumonia and COPD exacerbation. History - Past Medical History Cardiovascular: reports: None Respiratory: reports: Emphysema Neuro: reports: None Endocrine/Autoimmune: reports: None GI: reports: C.difficile : reports: Frequency HEENT: reports: None Psych: reports: None Musculoskeletal: reports: None Derm: reports: None MRSA Hx?: No Other Past Medical History: History of vaginal cancer in 2007 treated with chemo and radiation. Bladder tumors removed in 2000-09-02 of which was malignant. 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 She currently lives with her boyfriend whom she has been with for over 10 years. She does not have any children of her own but her boyfriend does have grown kids. She smoked 1 pack a day for 37 years and quit last year after hospitalization for COPD and pneumonia. She used to drink moderate amount of alcohol but no longer drinks. She smokes marijuana but denies any other illicit drug use. - POLST Patient has POLST: No POLST Status: Full Code Meds/Allgy - Home Medications Home Medications: Ambulatory Orders Medication Instructions Recorded Confirmed RX: Methadone 7.5 mg PO 0800 07/09/16 04/27/17 RX: Oxybutynin [Ditropan] 5 mg PO BID 07/09/16 04/27/17 RX: Methadone HCl 5 mg PO 1200 04/27/17 04/27/17 RX: Methadone HCl 5 mg PO QPM 04/27/17 04/27/17 RX: Albuterol 2.5 mg INH RTQ4H PRN #60 neb 05/01/17 RX: Ipratropium/Albuterol [Duoneb] 3 ml INH TID #90 neb 05/01/17 RX: predniSONE [Deltasone] 40 mg PO DAILYWM #5 tablet 05/01/17 cefUROXime axetil [Ceftin] 500 mg PO Q12H #6 tablet 05/01/17 - Allergies Allergies/Adverse Reactions: Allergies Allergy/AdvReac Type Severity Reaction Status Date / Time No Known Drug Allergies Allergy Verified 08/16/18 22:50 Review of Systems - Other Findings Other Findings: A comprehensive review of systems was performed the pertinent positives and negatives are stated above in the HPI and the remainder of the review of systems is negative. Prior Level of Functionality: She is completely independent and able to perform all her activities of daily living. She does not use any assistance devices for ambulation. Exam - Vital Signs Reviewed Vital Signs: Yes Vital Signs: Vital Signs x48h Temp Pulse Resp BP Pulse Ox 08/17/18 02:57 111 H 19 90 L 08/17/18 02:32 110 H 20 118/76 91 L 08/17/18 02:10 116 H 18 08/17/18 02:03 112 H 21 138/94 H 90 L 08/17/18 01:39 37.1 C 103 H 19 08/17/18 00:40 104 H 19 117/85 H 92 08/16/18 23:34 106 H 19 08/16/18 23:28 103 H 19 132/88 H 93 08/16/18 22:46 37.2 C 129 H 20 119/77 86 L - Physical Exam General Appearance: positive: No acute distress, Alert Eyes Bilateral: positive: Normal inspection, PERRL, EOMI, No lid inflammation, Conjunctivae nml, No scleral icterus ENT: positive: ENT inspection nml, Pharynx nml, Dry mucous membranes. negative: Purulent nasal drainage, Pharyngeal erythema, Oral lesions Neck: positive: Nml inspection, Thyroid nml, No JVD, Trachea midline. negative: Thyromegaly, Lymphadenopathy (R), Lymphadenopathy (L), Stiff neck, Carotid bruit, Tracheal deviation Respiratory: positive: Chest non-tender, No respiratory distress, Wheezes (Bilateral, expiratory, diffuse), Rhonchi (Bilateral lower lungs) Cardiovascular: positive: Regular rate & rhythm, No murmur, No gallop Peripheral Pulses: positive: 2+ Abdomen: positive: Non-tender, No organomegaly, Nml bowel sounds, No distention. negative: Guarding, Rebound Back: positive: Nml inspection. negative: CVA tenderness (R), CVA tenderness (L) Skin: positive: Color nml, No rash, Warm, Dry. negative: Cyanosis, Diaphoresis, Pallor, Skin rash Extremities: positive: Non-tender, Full ROM, Nml appearance, No pedal edema Neurologic/Psychiatric: positive: Oriented x3, CN's nml (2-12), Motor nml, Sensation nml, Mood/affect nml Conclusion/Plan - Problem List (1) CAP (community acquired pneumonia) Conclusion/Plan: Patient presented with 1 week of shortness of breath, cough and chills. Patient was hypoxic on presentation and found to have a bibasilar pneumonia. She had a similar hospitalization for pneumonia about 1 year ago and was sent home on oxygen but states that she no longer requires oxygen and never took inhalers that were prescribed to her. She did state that she stopped smoking since that hospitalization. Plan: IV ceftriaxone and azithromycin IV fluids Supplemental oxygen Qualifiers: Laterality: unspecified laterality Qualified Code(s): J18.9 - Pneumonia, unspecified organism (2) COPD exacerbation Conclusion/Plan: The patient has a history of COPD secondary to smoking. Patient's chest x-ray does show evidence of emphysema. Patient has diffuse wheezing on examination. Patient is hypoxic on presentation. Patient appears to have community acquired pneumonia with COPD exacerbation. Plan: Duo nebs [id number] times 24 hours then as needed Prednisone 40 mg daily IV ceftriaxone and azithromycin to treat pneumonia Supplemental oxygen (3) Hyponatremia Conclusion/Plan: Patient has hyponatremia on presentation with a sodium of 130. Patient appears to have hypovolemic hyponatremia as she appears dry on examination. Patient's hyponatremia may also be secondary to her ongoing pneumonia which could cause some mild SIADH. Plan: IV fluids Monitor sodium (4) UTI (urinary tract infection) Conclusion/Plan: The patient has been having dysuria for the last several days. She felt as though she might have a UTI. The patient's urine analysis is positive for large occult blood, positive nitrite and 6-10 WBCs with few bacteria. Plan: Treatment urinary tract infection with ceftriaxone Await urine cultures Pyridium as needed. Qualifiers: Urinary tract infection type: acute cystitis (5) Chronic pain Conclusion/Plan: The patient states that she has chronic abdominal pain and has been on methadone for years. She states that the abdominal pain is controlled with her methadone. We will need to confirm the patient's methadone dose in the morning and then will restart her on her home dose of methadone. Qualifiers: Chronic pain type: other chronic pain Qualified Code(s): G89.29 - Other chronic pain - Lab Results Lab results reviewed: Yes Fish Bones: 08/17/18 01:00 08/17/18 01:00 Other Lab Results: Laboratory Results WBC 16.7 x10^3/uL (4.8-10.8) H 08/17/18 01:00 RBC 4.62 10^6/uL (4.20-5.40) 08/17/18 01:00 Hgb 14.2 g/dL (12.0-16.0) 08/17/18 01:00 Hct 41.6 % (37.0-47.0) 08/17/18 01:00 MCV 90.2 fL (81.0-99.0) 08/17/18 01:00 MCH 30.8 pg (27.0-31.0) 08/17/18 01:00 MCHC 34.1 g/dL (32.0-36.0) 08/17/18 01:00 RDW 12.9 % (12.0-15.0) 08/17/18 01:00 Plt Count 220 10^3/uL (130-450) 08/17/18 01:00 MPV 7.8 fL (7.9-10.8) L 08/17/18 01:00 Neut # (Auto) 14.5 10^3/uL (1.5-6.6) H 08/17/18 01:00 Lymph # (Auto) 0.8 10^3/uL (1.5-3.5) L 08/17/18 01:00 [place] # (Auto) 1.3 10^3/uL (0.0-1.0) H 08/17/18 01:00 Eos # (Auto) 0.0 10^3/uL (0.0-0.7) 08/17/18 01:00 Baso # (Auto) 0.1 10^3/uL (0.0-0.1) 08/17/18 01:00 Absolute Nucleated RBC 0.00 x10^3/uL 08/17/18 01:00 Nucleated RBC % 0.0 /100WBC 08/17/18 01:00 Sodium 130 mmol/L (135-145) L 08/17/18 01:00 Potassium 4.1 mmol/L (3.5-5.0) 08/17/18 01:00 Chloride 94 mmol/L (101-111) L 08/17/18 01:00 Carbon Dioxide 25 mmol/L (21-32) 08/17/18 01:00 Anion Gap 11.0 (6-13) 08/17/18 01:00 BUN 14 mg/dL (6-20) 08/17/18 01:00 Creatinine 0.9 mg/dL (0.4-1.0) 08/17/18 01:00 Estimated GFR (MDRD) 65 (>89) L 08/17/18 01:00 Glucose 132 mg/dL (70-100) H 08/17/18 01:00 Lactic Acid 0.8 mmol/L (0.5-2.2) 08/17/18 01:00 Calcium 9.1 mg/dL (8.5-10.3) 08/17/18 01:00 Troponin I < 0.04 ng/mL (<0.49) 08/17/18 01:00 B-Natriuretic Peptide 48 pg/mL (5-100) 08/17/18 01:00 - Diagnostic Imaging Results Diagnostic Imaging Results: positive: Final report reviewed Diagnostic Imaging Results Comments: Chest x-ray Impression: 1. Bibasilar pneumonia 2. Known emphysema Core Measures - Anticipated LOS I expect patient to be DC'd or transferred within 96 hours.: Yes - DVT/VTE - Prophylaxis VTE/DVT Device ordered at admit?: Yes
[2018-08-17 03:09] LABS: GLUCOSE, URINE (UA) NEGATIVE (NEGATIVE); KETONES,URINE (UA) 15 mg/dL (NEGATIVE); LEUKOCYTE ESTERASE, URINE NEGATIVE (NEGATIVE); NITRITE,URINE POSITIVE (NEGATIVE); OCCULT BLOOD,URINE LARGE (NEGATIVE); PROTEIN,URINE 100 mg/dL (NEGATIVE); UROBILINOGEN,URINE 0.2 (NORMAL) E.U./dL (NORMAL)
[2018-08-17 03:11] LABS: BILIRUBIN,URINE NEGATIVE (NEGATIVE); CLARITY,URINE N (CLEAR); ICTOTEST,URINE NEGATIVE
[2018-08-17 03:17] LABS: BACTERIA,URINE Few /HPF (None Seen); MUCUS,URINE Marked Strands; SQUAMOUS EPITHELIAL CELL,UR RARE Squamous (<= Few)
[2018-08-17 03:18] LABS: CASTS, URINE 6-10 Hyaline Casts /LPF
[2018-08-17] MEDS: SODIUM CHLORIDE 0.9% 1,000 ML IV SCH ×3 (04:06→23:08)
[2018-08-17] MEDS: oxyCODONE 5 MG TABLET PO PRN ×2 (04:10→11:12)
[2018-08-17 05:43] LABS: BASOPHILS % (AUTO) 0.3 %; HGB - HEMOGLOBIN 13.2 g/dL (12.0-16.0); LYMPHOCYTES # (AUTO) 0.4 10^3/uL (1.5-3.5); LYMPHOCYTES % (AUTO) 2.8 %; MEAN CORPUSCULAR HEMOGLOBIN 31.3 pg (27.0-31.0); MEAN CORPUSCULAR HGB CONC 34.7 g/dL (32.0-36.0); MEAN CORPUSCULAR VOLUME 90.3 fL (81.0-99.0); MEAN PLATELET VOLUME 7.7 fL (7.9-10.8); MONOCYTES # (AUTO) 0.4 10^3/uL (0.0-1.0); MONOCYTES % (AUTO) 2.9 %; NEUTROPHILS # (AUTO) 13.8 10^3/uL (1.5-6.6); PLT - PLATELET COUNT 197 10^3/uL (130-450); RED CELL DISTRIBUTION WIDTH 13.1 % (12.0-15.0); WHITE BLOOD COUNT 14.7 x10^3/uL (4.8-10.8)
[2018-08-17 05:54] LABS: CALCIUM 8.8 mg/dL (8.5-10.3); CREATININE 0.7 mg/dL (0.4-1.0)
[2018-08-17] MEDS: IPRATROPIUM/ALBUTEROL 3 ML NEB INH SCH ×4 (08:00→21:00)
[2018-08-17] MEDS: SACCHAROMYCES BOULARDII 250 MG CAPSULE PO SCH ×2 (08:39→16:17)
[2018-08-17] MEDS: FAMOTIDINE 20 MG TABLET PO SCH ×2 (08:39→20:24)
[2018-08-17] MEDS: predniSONE 20 MG TABLET PO SCH (08:39)
[2018-08-17] MEDS: POLYETHYLENE GLYCOL 3350 17 GM PACKET PO SCH (08:40)
[2018-08-17] MEDS: cefTRIAXone 2 GM in SODIUM CHLORIDE 0.9% MINIBAG 100 ML IV SCH (08:42)
[2018-08-17] MEDS: SODIUM CHLORIDE FLUSH 0.9% 10 ML SYRINGE IVP SCH ×2 (08:45→16:17)
[2018-08-17] MEDS ORDERED: cefTRIAXone 1 GM in SODIUM CHLORIDE 0.9% MINIBAG 100 ML IV SCH (09:00)
[2018-08-17] MEDS: AZITHROMYCIN INJ 500 MG in SODIUM CHLORIDE 0.9% 250 ML IV SCH (09:18)
[2018-08-17] MEDS: ACETAMINOPHEN 325 MG TABLET PO PRN (11:12)
--- NOTE | 2018-08-17 11:26 | PROVIDER PROGRESS NOTE ---
Subjective - Prog Note Date Prog Note Date: 08/17/18 - Subjective Pt reports feeling: Improved Subjective: pt reports she felt better breathing than yesterday, she denies fever, chill, CP. she report she quit cigarette smoking after her last admission. Current Medications - Current Medications Current Medications: Active Medications Acetaminophen (Tylenol) 650 mg PO Q4HR PRN PRN Reason: Pain 1 to 4 Last Admin: 08/17/18 11:12 Dose: 325 mg Albuterol/Ipratropium (Duoneb) 3 ml INH RTQID PRN PRN Reason: Wheezing Albuterol/Ipratropium (Duoneb) 3 ml INH RTQID RAYRAY Stop: 08/18/18 06:59 Last Admin: 08/17/18 08:00 Dose: 3 ml Famotidine (Pepcid) 20 mg PO BID [facility] [place] Last Admin: 08/17/18 08:39 Dose: 20 mg Azithromycin 500 mg/ Sodium (Chloride) 250 mls @ 250 mls/hr IV DAILY [facility] [place] Last Infusion: 08/17/18 10:20 Dose: Infused Ceftriaxone Sodium 2 gm/ (Sodium Chloride) 100 mls @ 200 mls/hr IV DAILY [facility] [place] Last Infusion: 08/17/18 09:15 Dose: Infused Sodium Chloride (Normal Saline 0.9%) 1,000 mls @ 100 mls/hr IV .Q10H [facility] [place] Last Admin: 08/17/18 04:06 Dose: 100 mls/hr Methadone HCl () 7.5 mg PO 0800 RAYRAY Methadone HCl () 5 mg PO 1200 [facility] [place] Methadone HCl () 5 mg PO QPM [facility] [place] Multivitamins/Minerals (Theragran M) 1 tab PO DAILYWM [facility] [place] Ondansetron HCl (Zofran Inj) 4 mg IVP Q6HR PRN PRN Reason: Nausea / Vomiting Oxycodone HCl (Roxicodone) 5 mg PO Q4HR PRN PRN Reason: Pain 5 to 7 Last Admin: 08/17/18 11:12 Dose: 5 mg Polyethylene Glycol (Miralax) 17 gm PO DAILY [facility] [place] Last Admin: 08/17/18 08:40 Dose: Not Given Prednisone (Deltasone) 40 mg PO DAILYWM [facility] [place] Last Admin: 08/17/18 08:39 Dose: 40 mg Prochlorperazine Edisylate (Compazine Inj) 10 mg IVP Q6HR PRN PRN Reason: Nausea / Vomiting Promethazine HCl (Phenergan Inj) 25 mg IM Q6HR PRN PRN Reason: Nausea / Vomiting Saccharomyces Boulardii (Florastor) 250 mg PO BIDWM [facility] [place] Last Admin: 08/17/18 08:39 Dose: 250 mg Sodium Chloride (Normal Saline Flush 0.9%) 10 ml IVP PRN PRN PRN Reason: NEEDED PER PROVIDER ORDERS Last Admin: 08/17/18 04:07 Dose: 10 ml Sodium Chloride (Normal Saline Flush 0.9%) 10 ml IVP 0100,0900,1700 [facility] [place] Last Admin: 08/17/18 08:45 Dose: Not Given Zolpidem Tartrate (Ambien) 5 mg PO QPM PRN PRN Reason: Insomnia Methadone 7.5 mg PO 0800 07/09/16 Methadone HCl 5 mg PO 1200 04/27/17 Methadone HCl 5 mg PO QPM 04/27/17 Objective - Vital Signs/Intake & Output Reviewed Vital Signs: Yes Vital Signs: Vital Signs x48h Temp Pulse Pulse Resp BP Pulse Ox 08/17/18 08:00 36.7 C 87 91 18 129/102 H 93 08/17/18 04:37 36.9 C 101 H 16 92 08/17/18 04:10 36.9 C 101 H 16 131/74 H 92 Intake & Output: Intake & Output 08/14/18 08/15/18 08/16/18 08/17/18 23:59 23:59 23:59 23:59 Intake Total 940 Output Total 200 Balance 740 - Objective General Appearance: positive: No acute distress, Alert. negative: Lethargic Eyes Bilateral: positive: Normal inspection, PERRL, No lid inflammation, Conjunctivae nml ENT: positive: ENT inspection nml, Pharynx nml, No signs of dehydration. negative: Purulent nasal drainage, Pharyngeal erythema, Oral lesions, Dry mucous membranes Neck: positive: Nml inspection, Thyroid nml, No JVD, Trachea midline. negative: Thyromegaly, Lymphadenopathy (R), Lymphadenopathy (L), Stiff neck, Swelling/bruising, Tracheal deviation Respiratory: positive: Chest non-tender, No respiratory distress, Breath sounds nml. negative: Wheezes, Rales, Rhonchi Cardiovascular: positive: Regular rate & rhythm, No murmur, No gallop. negative: Irregularly irregular, Extrasystoles, Tachycardia, Bradycardia, JVD present, Systolic murmur, Diastolic murmur Peripheral Pulses: 2+ Radial (R), 2+ Radial (L), 2+ Dorsalis pedis (R), 2+ Dorsalis pedis (L) Abdomen: positive: Non-tender, No organomegaly, Nml bowel sounds, No distention. negative: Tenderness, Guarding, Rebound Back: positive: Nml inspection. negative: CVA tenderness (R), CVA tenderness (L) Skin: positive: Color nml, No rash, Warm, Dry. negative: Cyanosis, Diaphoresis, Pallor, Skin rash Extremities: positive: Non-tender, Full ROM, Nml appearance. negative: Calf tenderness, Joint swelling, Isidoro's sign/cords Neurologic/Psychiatric: positive: Oriented x3, Sensation nml, Mood/affect nml. negative: Weakness, Sensory loss, Facial droop, Slurred/abnml speech, Depressed mood/affect - Lab Results Fish Bones: 08/17/18 05:30 08/17/18 05:30 Other Labs: Lab Results x24hrs 08/17/18 08/17/18 08/17/18 Range/Units 05:30 05:30 03:00 WBC 14.7 H (4.8-10.8) x10^3/uL RBC 4.20 (4.20-5.40) 10^6/uL Hgb 13.2 (12.0-16.0) g/dL Hct 37.9 (37.0-47.0) % MCV 90.3 (81.0-99.0) fL MCH 31.3 H (27.0-31.0) pg MCHC 34.7 (32.0-36.0) g/dL RDW 13.1 (12.0-15.0) % Plt Count 197 (130-450) 10^3/uL MPV 7.7 L (7.9-10.8) fL Neut # (Auto) 13.8 H (1.5-6.6) 10^3/uL Lymph # (Auto) 0.4 L (1.5-3.5) 10^3/uL [place] # (Auto) 0.4 (0.0-1.0) 10^3/uL Eos # (Auto) 0.0 (0.0-0.7) 10^3/uL Baso # (Auto) 0.0 (0.0-0.1) 10^3/uL Absolute Nucleated RBC 0.00 x10^3/uL Nucleated RBC % 0.0 /100WBC Sodium 133 L (135-145) mmol/L Potassium 3.7 (3.5-5.0) mmol/L Chloride 97 L (101-111) mmol/L Carbon Dioxide 25 (21-32) mmol/L Anion Gap 11.0 (6-13) BUN 14 (6-20) mg/dL Creatinine 0.7 (0.4-1.0) mg/dL Estimated GFR (MDRD) 88 L (>89) Glucose 154 H (70-100) mg/dL Lactic Acid (0.5-2.2) mmol/L Calcium 8.8 (8.5-10.3) mg/dL Troponin I (<0.49) ng/mL B-Natriuretic Peptide (5-100) pg/mL Urine Color ORANGE Urine Clarity N (CLEAR) Urine pH 6.0 (5.0-7.5) PH Ur Specific [place] >=1.030 H (1.002-1.030) Urine Protein 100 H (NEGATIVE) mg/dL Urine Glucose (UA) NEGATIVE (NEGATIVE) mg/dL Urine Ketones 15 H (NEGATIVE) mg/dL Urine Occult Blood LARGE H (NEGATIVE) Urine Nitrite POSITIVE H (NEGATIVE) Urine Bilirubin NEGATIVE (NEGATIVE) Urine Urobilinogen 0.2 (NORMAL) (NORMAL) E.U./dL Ur Leukocyte Esterase NEGATIVE (NEGATIVE) Urine RBC 11-25 H (0-5) /HPF Urine WBC 6-10 H (0-5) /HPF Ur Squamous Epith Cells RARE Squamous (<= Few) Urine Bacteria Few (None Seen) /HPF Urine Casts 6-10 Hyaline Casts /LPF Urine Mucus Marked Strands Ur Microscopic Review INDICATED Urine Culture Comments INDICATED 08/17/18 08/17/18 08/17/18 Range/Units 01:00 01:00 01:00 WBC (4.8-10.8) x10^3/uL RBC (4.20-5.40) 10^6/uL Hgb (12.0-16.0) g/dL Hct (37.0-47.0) % MCV (81.0-99.0) fL MCH (27.0-31.0) pg MCHC (32.0-36.0) g/dL RDW (12.0-15.0) % Plt Count (130-450) 10^3/uL MPV (7.9-10.8) fL Neut # (Auto) (1.5-6.6) 10^3/uL Lymph # (Auto) (1.5-3.5) 10^3/uL [place] # (Auto) (0.0-1.0) 10^3/uL Eos # (Auto) (0.0-0.7) 10^3/uL Baso # (Auto) (0.0-0.1) 10^3/uL Absolute Nucleated RBC x10^3/uL Nucleated RBC % /100WBC Sodium (135-145) mmol/L Potassium (3.5-5.0) mmol/L Chloride (101-111) mmol/L Carbon Dioxide (21-32) mmol/L Anion Gap (6-13) BUN (6-20) mg/dL Creatinine (0.4-1.0) mg/dL Estimated GFR (MDRD) (>89) Glucose (70-100) mg/dL Lactic Acid 0.8 (0.5-2.2) mmol/L Calcium (8.5-10.3) mg/dL Troponin I < 0.04 (<0.49) ng/mL B-Natriuretic Peptide 48 (5-100) pg/mL Urine Color Urine Clarity (CLEAR) Urine pH (5.0-7.5) PH Ur Specific [place] (1.002-1.030) Urine Protein (NEGATIVE) mg/dL Urine Glucose (UA) (NEGATIVE) mg/dL Urine Ketones (NEGATIVE) mg/dL Urine Occult Blood (NEGATIVE) Urine Nitrite (NEGATIVE) Urine Bilirubin (NEGATIVE) Urine Urobilinogen (NORMAL) E.U./dL Ur Leukocyte Esterase (NEGATIVE) Urine RBC (0-5) /HPF Urine WBC (0-5) /HPF Ur Squamous Epith Cells (<= Few) Urine Bacteria (None Seen) /HPF Urine Casts /LPF Urine Mucus Ur Microscopic Review Urine Culture Comments 08/17/18 08/17/18 Range/Units 01:00 01:00 WBC 16.7 H (4.8-10.8) x10^3/uL RBC 4.62 (4.20-5.40) 10^6/uL Hgb 14.2 (12.0-16.0) g/dL Hct 41.6 (37.0-47.0) % MCV 90.2 (81.0-99.0) fL MCH 30.8 (27.0-31.0) pg MCHC 34.1 (32.0-36.0) g/dL RDW 12.9 (12.0-15.0) % Plt Count 220 (130-450) 10^3/uL MPV 7.8 L (7.9-10.8) fL Neut # (Auto) 14.5 H (1.5-6.6) 10^3/uL Lymph # (Auto) 0.8 L (1.5-3.5) 10^3/uL [place] # (Auto) 1.3 H (0.0-1.0) 10^3/uL Eos # (Auto) 0.0 (0.0-0.7) 10^3/uL Baso # (Auto) 0.1 (0.0-0.1) 10^3/uL Absolute Nucleated RBC 0.00 x10^3/uL Nucleated RBC % 0.0 /100WBC Sodium 130 L (135-145) mmol/L Potassium 4.1 (3.5-5.0) mmol/L Chloride 94 L (101-111) mmol/L Carbon Dioxide 25 (21-32) mmol/L Anion Gap 11.0 (6-13) BUN 14 (6-20) mg/dL Creatinine 0.9 (0.4-1.0) mg/dL Estimated GFR (MDRD) 65 L (>89) Glucose 132 H (70-100) mg/dL Lactic Acid (0.5-2.2) mmol/L Calcium 9.1 (8.5-10.3) mg/dL Troponin I (<0.49) ng/mL B-Natriuretic Peptide (5-100) pg/mL Urine Color Urine Clarity (CLEAR) Urine pH (5.0-7.5) PH Ur Specific [place] (1.002-1.030) Urine Protein (NEGATIVE) mg/dL Urine Glucose (UA) (NEGATIVE) mg/dL Urine Ketones (NEGATIVE) mg/dL Urine Occult Blood (NEGATIVE) Urine Nitrite (NEGATIVE) Urine Bilirubin (NEGATIVE) Urine Urobilinogen (NORMAL) E.U./dL Ur Leukocyte Esterase (NEGATIVE) Urine RBC (0-5) /HPF Urine WBC (0-5) /HPF Ur Squamous Epith Cells (<= Few) Urine Bacteria (None Seen) /HPF Urine Casts /LPF Urine Mucus Ur Microscopic Review Urine Culture Comments ABX Reporting Has patient been on IV antibiotics over the past 48 hours?: Yes Assessment/Plan - Problem List (1) CAP (community acquired pneumonia) Impression: Conclusion/Plan: 08/17 bilateral bibasilar pneumonia. progress: pt feel breathing better, no fever, chill. continue: IV ceftriaxone and azithromycin, IV fluids, Supplemental oxygen Patient presented with 1 week of shortness of breath, cough and chills. Patient was hypoxic on presentation and found to have a bibasilar pneumonia. She had a similar hospitalization for pneumonia about 1 year ago and was sent home on oxygen but states that she no longer requires oxygen and never took inhalers that were prescribed to her. She did state that she stopped smoking since that hospitalization. Plan: IV ceftriaxone and azithromycin IV fluids Supplemental oxygen (2) COPD exacerbation Conclusion/Plan: 08/17 history of COPD secondary to smoking continue Duo nebs and Prednisone continue Supplemental oxygen PRN continue IV ceftriaxone and azithromycin to treat pneumonia The patient has a history of COPD secondary to smoking. Patient's chest x-ray does show evidence of emphysema. Patient has diffuse wheezing on examination. Patient is hypoxic on presentation. Patient appears to have community acquired pneumonia with COPD exacerbation. Plan: Duo nebs [id number] times 24 hours then as needed Prednisone 40 mg daily IV ceftriaxone and azithromycin to treat pneumonia Supplemental oxygen (3) Hyponatremia Conclusion/Plan: 08/17, Na 133 today, improved continue IVF of NS, and lab monitor Patient has hyponatremia on presentation with a sodium of 130. Patient appears to have hypovolemic hyponatremia as she appears dry on examination. Patient's hyponatremia may also be secondary to her ongoing pneumonia which could cause some mild SIADH. Plan: IV fluids Monitor sodium (4) UTI (urinary tract infection) Conclusion/Plan: 08/17 continue treatment of Rocephin will follow up UA culture The patient has been having dysuria for the last several days. She felt as though she might have a UTI. The patient's urine analysis is positive for large occult blood, positive nitrite and 6-10 WBCs with few bacteria. Plan: Treatment urinary tract infection with ceftriaxone Await urine cultures Pyridium as needed. (5) Chronic pain Conclusion/Plan: 08/17 reconcile pt's home Methadone regimen The patient states that she has chronic abdominal pain and has been on methadone for years. She states that the abdominal pain is controlled with her methadone. We will need to confirm the patient's methadone dose in the morning and then will restart her on her home dose of methadone. Qualifiers: Laterality: unspecified laterality Qualified Code(s): J18.9 - Pneumonia, unspecified organism
[2018-08-17] MEDS: METHADONE 5 MG TABLET PO SCH ×3 (12:02→20:24)
[2018-08-17] MEDS: MULTIVITAMIN W/MINERALS TABLET PO SCH (12:02)
[2018-08-17] MEDS: CHOLECALCIFEROL 1,000 UNIT TABLET PO SCH (14:50)
[2018-08-18] MEDS: SODIUM CHLORIDE FLUSH 0.9% 10 ML SYRINGE IVP SCH ×3 (01:44→17:00)
[2018-08-18] MEDS: oxyCODONE 5 MG TABLET PO PRN ×2 (03:19→21:32)
[2018-08-18] MEDS: ACETAMINOPHEN 325 MG TABLET PO PRN (03:19)
[2018-08-18 06:29] LABS: EOSINOPHILS % (AUTO) 0.1 %; HGB - HEMOGLOBIN 11.3 g/dL (12.0-16.0); LYMPHOCYTES # (AUTO) 0.9 10^3/uL (1.5-3.5); LYMPHOCYTES % (AUTO) 8.9 %; MEAN CORPUSCULAR HGB CONC 34.4 g/dL (32.0-36.0); MEAN CORPUSCULAR VOLUME 90.2 fL (81.0-99.0); MEAN PLATELET VOLUME 8.3 fL (7.9-10.8); MONOCYTES # (AUTO) 0.7 10^3/uL (0.0-1.0); MONOCYTES % (AUTO) 6.7 %; NEUTROPHILS # (AUTO) 8.9 10^3/uL (1.5-6.6); NEUTROPHILS % (AUTO) 84.3 %; PLT - PLATELET COUNT 186 10^3/uL (130-450); RED BLOOD COUNT 3.63 10^6/uL (4.20-5.40); RED CELL DISTRIBUTION WIDTH 12.8 % (12.0-15.0); WHITE BLOOD COUNT 10.5 x10^3/uL (4.8-10.8)
[2018-08-18 06:39] LABS: CALCIUM 8.6 mg/dL (8.5-10.3); CREATININE 0.7 mg/dL (0.4-1.0)
[2018-08-18] MEDS: IPRATROPIUM/ALBUTEROL 3 ML NEB INH PRN ×2 (07:16→19:41)
[2018-08-18] MEDS: METHADONE 5 MG TABLET PO SCH ×3 (08:12→20:25)
[2018-08-18] MEDS: MULTIVITAMIN W/MINERALS TABLET PO SCH (08:13)
[2018-08-18] MEDS: SACCHAROMYCES BOULARDII 250 MG CAPSULE PO SCH ×2 (08:13→16:59)
[2018-08-18] MEDS: predniSONE 20 MG TABLET PO SCH (08:13)
[2018-08-18] MEDS: cefTRIAXone 2 GM in SODIUM CHLORIDE 0.9% MINIBAG 100 ML IV SCH (08:54)
[2018-08-18] MEDS: SODIUM CHLORIDE 0.9% 1,000 ML IV SCH ×2 (08:57→21:32)
[2018-08-18] MEDS: CHOLECALCIFEROL 1,000 UNIT TABLET PO SCH (08:58)
[2018-08-18] MEDS: FAMOTIDINE 20 MG TABLET PO SCH ×2 (08:58→20:25)
[2018-08-18] MEDS: POLYETHYLENE GLYCOL 3350 17 GM PACKET PO SCH ×2 (08:58→12:23)
[2018-08-18] MEDS: AZITHROMYCIN INJ 500 MG in SODIUM CHLORIDE 0.9% 250 ML IV SCH (09:38)
[2018-08-18] MEDS ORDERED: SODIUM CHLORIDE FLUSH 0.9% 10 ML SYRINGE ONE (12:20)
[2018-08-18] MEDS ORDERED: PHENAZOPYRIDINE 100 MG TABLET PO PRN (14:22)
--- NOTE | 2018-08-18 17:31 | PROVIDER PROGRESS NOTE ---
Subjective - Prog Note Date Prog Note Date: 08/18/18 - Subjective Pt reports feeling: Improved Subjective: pt report she feel significant better than yesterday, breathing is better, no fever, chill, CP Current Medications - Current Medications Current Medications: Active Medications Acetaminophen (Tylenol) 650 mg PO Q4HR PRN PRN Reason: Pain 1 to 4 Last Admin: 08/18/18 03:19 Dose: 650 mg Albuterol/Ipratropium (Duoneb) 3 ml INH RTQID PRN PRN Reason: Wheezing Last Admin: 08/18/18 07:16 Dose: 3 ml Cholecalciferol (Vitamin D3) 2,000 unit PO DAILY [facility] Last Admin: 08/18/18 08:58 Dose: 2,000 unit Famotidine (Pepcid) 20 mg PO BID [facility] Last Admin: 08/18/18 08:58 Dose: 20 mg Azithromycin 500 mg/ Sodium (Chloride) 250 mls @ 250 mls/hr IV DAILY [facility] Last Infusion: 08/18/18 10:40 Dose: Infused Ceftriaxone Sodium 2 gm/ (Sodium Chloride) 100 mls @ 200 mls/hr IV DAILY [facility] Last Infusion: 08/18/18 09:25 Dose: Infused Sodium Chloride (Normal Saline 0.9%) 1,000 mls @ 100 mls/hr IV .Q10H [facility] Last Admin: 08/18/18 08:57 Dose: 100 mls/hr Methadone HCl () 7.5 mg PO 0800 [facility] Last Admin: 08/18/18 08:12 Dose: 7.5 mg Methadone HCl () 5 mg PO 1200 [facility] Last Admin: 08/18/18 11:55 Dose: 5 mg Methadone HCl () 5 mg PO QPM [facility] Last Admin: 08/17/18 20:24 Dose: 5 mg Multivitamins/Minerals (Theragran M) 1 tab PO DAILYWM [facility] Last Admin: 08/18/18 08:13 Dose: 1 tab Ondansetron HCl (Zofran Inj) 4 mg IVP Q6HR PRN PRN Reason: Nausea / Vomiting Oxycodone HCl (Roxicodone) 5 mg PO Q4HR PRN PRN Reason: Pain 5 to 7 Last Admin: 08/18/18 03:19 Dose: 5 mg Phenazopyridine HCl (Pyridium) 100 mg PO TID PRN PRN Reason: Bladder Spasms Last Admin: 08/18/18 14:44 Dose: 100 mg Polyethylene Glycol (Miralax) 17 gm PO DAILY [facility] Last Admin: 08/18/18 12:23 Dose: 17 gm Prednisone (Deltasone) 40 mg PO DAILYWM [facility] Last Admin: 08/18/18 08:13 Dose: 40 mg Prochlorperazine Edisylate (Compazine Inj) 10 mg IVP Q6HR PRN PRN Reason: Nausea / Vomiting Promethazine HCl (Phenergan Inj) 25 mg IM Q6HR PRN PRN Reason: Nausea / Vomiting Saccharomyces Boulardii (Florastor) 250 mg PO BIDWM [facility] Last Admin: 08/18/18 16:59 Dose: 250 mg Sodium Chloride (Normal Saline Flush 0.9%) 10 ml IVP PRN PRN PRN Reason: NEEDED PER PROVIDER ORDERS Last Admin: 08/17/18 04:07 Dose: 10 ml Sodium Chloride (Normal Saline Flush 0.9%) 10 ml IVP 0100,0900,1700 [facility] Last Admin: 08/18/18 17:00 Dose: Not Given Zolpidem Tartrate (Ambien) 5 mg PO QPM PRN PRN Reason: Insomnia Methadone 7.5 mg PO 0800 07/09/16 Methadone HCl 5 mg PO 1200 04/27/17 Methadone HCl 5 mg PO QPM 04/27/17 Objective - Vital Signs/Intake & Output Reviewed Vital Signs: Yes Vital Signs: Vital Signs x48h Temp Pulse Resp BP Pulse Ox 08/18/18 16:18 36.6 C 66 20 139/61 H 97 Intake & Output: Intake & Output 08/15/18 08/16/18 08/17/18 08/18/18 23:59 23:59 23:59 23:59 Intake Total 4240 2741.667 Output Total 200 Balance 4040 2741.667 - Objective General Appearance: positive: No acute distress, Alert. negative: Lethargic Eyes Bilateral: positive: Normal inspection, PERRL, No lid inflammation, Conjunctivae nml ENT: positive: ENT inspection nml, Pharynx nml, No signs of dehydration. negative: Purulent nasal drainage, Pharyngeal erythema, Oral lesions Neck: positive: Nml inspection, Thyroid nml, No JVD, Trachea midline. negative: Thyromegaly, Lymphadenopathy (R), Lymphadenopathy (L), Stiff neck, Swelling/b ruising, Tracheal deviation Respiratory: positive: Chest non-tender, No respiratory distress. negative: Wheezes, Rales, Rhonchi Cardiovascular: positive: Regular rate & rhythm, No murmur, No gallop. negative: Irregularly irregular, Extrasystoles, Tachycardia, Bradycardia, JVD present, Systolic murmur, Diastolic murmur Peripheral Pulses: 2+ Radial (R), 2+ Radial (L), 2+ Dorsalis pedis (R), 2+ Dorsalis pedis (L) Abdomen: positive: Non-tender, No organomegaly, Nml bowel sounds, No distention. negative: Tenderness, Guarding, Rebound Back: positive: Nml inspection. negative: CVA tenderness (R), CVA tenderness (L) Skin: positive: Color nml, No rash, Warm, Dry. negative: Cyanosis, Diaphoresis, Pallor Extremities: positive: Non-tender, Full ROM, Nml appearance. negative: Calf tenderness, Joint swelling, Isidoro's sign/cords Neurologic/Psychiatric: positive: Oriented x3, Motor nml, Sensation nml, Mood/affect nml. negative: Weakness, Sensory loss, Facial droop, Slurred/abnml speech, Depressed mood/affect - Lab Results Fish Bones: 08/18/18 06:00 08/18/18 06:00 Other Labs: Lab Results x24hrs 08/18/18 08/18/18 Range/Units 06:00 06:00 WBC 10.5 (4.8-10.8) x10^3/uL RBC 3.63 L (4.20-5.40) 10^6/uL Hgb 11.3 L (12.0-16.0) g/dL Hct 32.8 L (37.0-47.0) % MCV 90.2 (81.0-99.0) fL MCH 31.0 (27.0-31.0) pg MCHC 34.4 (32.0-36.0) g/dL RDW 12.8 (12.0-15.0) % Plt Count 186 (130-450) 10^3/uL MPV 8.3 (7.9-10.8) fL Neut # (Auto) 8.9 H (1.5-6.6) 10^3/uL Lymph # (Auto) 0.9 L (1.5-3.5) 10^3/uL [place] # (Auto) 0.7 (0.0-1.0) 10^3/uL Eos # (Auto) 0.0 (0.0-0.7) 10^3/uL Baso # (Auto) 0.0 (0.0-0.1) 10^3/uL Absolute Nucleated RBC 0.00 x10^3/uL Nucleated RBC % 0.0 /100WBC Sodium 136 (135-145) mmol/L Potassium 4.3 (3.5-5.0) mmol/L Chloride 107 (101-111) mmol/L Carbon Dioxide 26 (21-32) mmol/L Anion Gap 3.0 L (6-13) BUN 15 (6-20) mg/dL Creatinine 0.7 (0.4-1.0) mg/dL Estimated GFR (MDRD) 88 L (>89) Glucose 98 (70-100) mg/dL Calcium 8.6 (8.5-10.3) mg/dL ABX Reporting Has patient been on IV antibiotics over the past 48 hours?: Yes Assessment/Plan - Problem List (1) CAP (community acquired pneumonia) Impression: 08/18 pt feels better, WBC is normal, 97% sats on 3 liter of O2 continue antibiotics. continue RT treatment and supplement O2 as needed 08/17 bilateral bibasilar pneumonia. progress: pt feel breathing better, no fever, chill. continue: IV ceftriaxone and azithromycin, IV fluids, Supplemental oxygen (2) COPD exacerbation Conclusion/Plan: 08/18 stable, continue Duo nebs and Prednisone continue Supplemental oxygen PRN 08/17 history of COPD secondary to smoking continue Duo nebs and Prednisone continue Supplemental oxygen PRN continue IV ceftriaxone and azithromycin to treat pneumonia (3) Hyponatremia Conclusion/Plan: 08/18 resolved 08/17, Na 133 today, improved continue IVF of NS, and lab monitor (4) UTI (urinary tract infection) Conclusion/Plan: UA indicate negative in culture continue antibiotics Rocephin 08/17 continue treatment of Rocephin will follow up UA culture (5) Chronic pain stable, continue Methadon Qualifiers: Laterality: unspecified laterality Qualified Code(s): J18.9 - Pneumonia, unspecified organism
[2018-08-19] MEDS: SODIUM CHLORIDE FLUSH 0.9% 10 ML SYRINGE IVP SCH ×2 (00:05→08:38)
[2018-08-19 06:17] LABS: BASOPHILS % (AUTO) 0.3 %; EOSINOPHILS % (AUTO) 0.1 %; HGB - HEMOGLOBIN 11.7 g/dL (12.0-16.0); LYMPHOCYTES # (AUTO) 1.5 10^3/uL (1.5-3.5); MEAN CORPUSCULAR HGB CONC 34.1 g/dL (32.0-36.0); MEAN CORPUSCULAR VOLUME 90.7 fL (81.0-99.0); MEAN PLATELET VOLUME 7.9 fL (7.9-10.8); MONOCYTES # (AUTO) 0.7 10^3/uL (0.0-1.0); MONOCYTES % (AUTO) 7.7 %; NEUTROPHILS # (AUTO) 7.1 10^3/uL (1.5-6.6); NEUTROPHILS % (AUTO) 75.9 %; PLT - PLATELET COUNT 231 10^3/uL (130-450); RED BLOOD COUNT 3.77 10^6/uL (4.20-5.40); RED CELL DISTRIBUTION WIDTH 13.1 % (12.0-15.0); WHITE BLOOD COUNT 9.4 x10^3/uL (4.8-10.8)
[2018-08-19 06:41] LABS: CALCIUM 8.8 mg/dL (8.5-10.3); CREATININE 0.7 mg/dL (0.4-1.0)
[2018-08-19] MEDS: SODIUM CHLORIDE 0.9% 1,000 ML IV SCH (07:35)
[2018-08-19] MEDS: CHOLECALCIFEROL 1,000 UNIT TABLET PO SCH (08:37)
[2018-08-19] MEDS: predniSONE 20 MG TABLET PO SCH (08:37)
[2018-08-19] MEDS: MULTIVITAMIN W/MINERALS TABLET PO SCH (08:37)
[2018-08-19] MEDS: SACCHAROMYCES BOULARDII 250 MG CAPSULE PO SCH (08:37)
[2018-08-19] MEDS: METHADONE 5 MG TABLET PO SCH ×2 (08:37→11:57)
[2018-08-19] MEDS: FAMOTIDINE 20 MG TABLET PO SCH (08:37)
[2018-08-19] MEDS: POLYETHYLENE GLYCOL 3350 17 GM PACKET PO SCH (08:38)
[2018-08-19] MEDS: cefTRIAXone 2 GM in SODIUM CHLORIDE 0.9% MINIBAG 100 ML IV SCH (09:22)
[2018-08-19] MEDS: AZITHROMYCIN INJ 500 MG in SODIUM CHLORIDE 0.9% 250 ML IV SCH (10:15)
[2018-08-19] MEDS: IPRATROPIUM/ALBUTEROL 3 ML NEB INH PRN (13:22)
--- NOTE | 2018-08-19 14:39 | Discharge Plan ---
Discharge Plan Disposition: Home, Self Care Condition: Poor Prescriptions: Albuterol Sulf [Ventolin Hfa Inhaler] 1 - 2 puffs INH Q4HR PRN #1 inhaler PRN Reason: Shortness Of Air/Wheezing Amox/Clav 500/125 [Augmentin] 1 each PO Q12H #14 tablet Ipratropium [Atrovent] 1 puffs INH Q6H PRN #1 inhaler PRN Reason: Shortness Of Air/Wheezing predniSONE [Deltasone] 10 mg PO [id number] #21 tab Diet: Regular Activity Restrictions: Activity as Tolerated Shower Restrictions: No (fall precaution) Instruction Topics: Amoxicillin Clavulanic Acid tablets, COPD, Pneumonia, UTI Additional Instructions or Follow Up instructions: You may follow up your PCP in one week. You are prescribed antibiotics for continuing treatment of your pneumonia and UTI, and breathing treatment for your COPD. You are also prescribed Oxygen. Please follow up RT instruction for how to safely use the oxygen. Should your symptoms return or worsen, your may present ER or call 911 for help. No Smoking: If you smoke, Please STOP! Call for help. Follow-up with: Vanessa Issa ARNP [Primary Care Provider] -
--- NOTE | 2018-08-19 14:48 | DISCHARGE SUMMARY ---
Discharge Summary Discharge Date: 08/19/18 Discharging Provider: AMIN Primary Care Provider: Vanessa Nowak Condition at Discharge: Poor Discharge Disposition: 01 Home, Self Care Discharge Facility Name: home - DIAGNOSES Admission Diagnoses: (1) CAP (community acquired pneumonia) (2) COPD exacerbation (3) Hyponatremia (4) UTI (urinary tract infection) (5) Chronic pain Discharge Diagnoses with Status of Each Condition: (1) CAP (community acquired pneumonia) great improved. WBC became normal. pt feel breathing is much better. 94% sats on 2 liter of O2. pt is prescribed Augmentin antibiotics to home. pt request to be d/c home today (2) COPD exacerbation 94% sats on 2 liter, pt report she feel much better breathing, request to be d/c to home I am ordering home oxygen for pt on exertion and pts' chronic COPD. When pt was on ambulation, she had 84% sats without O2, 86% sats on 1 liter of O2, 92% sats on 2 liter of O2. (3) Hyponatremia resolved (4) UTI (urinary tract infection) continue treat with antibiotic Augmentin course. (5) Chronic pain chronic, continue home regimen. - HPI History of Present Illness: refer from Dr. Dial's HPI on 08/17/18 for pt as the following: Patient is a 53-year-old female with a past medical history significant for ACID MAKER D, chronic abdominal pain on methadone, history of vaginal cancer in 2007 status post chemo and radiation and history of multiple bladder tumors removed in 2010 who presented to the emergency department with a chief complaint of shortness of breath and cough. She states that she was in her normal state of health until about 1 week ago when she began to develop cold-like symptoms. She states the symptoms started with a sore throat and then she began to develop a cough. She states that over the last 3-4 days her symptoms have become significantly worse. She states that she has had an increasing cough with thick yellowish green sputum production and is becoming increasingly short of breath. She also states that she has been having chills and chest tightness. She states that the symptoms are very similar to when she was admitted 1 year ago for pneumonia. She states that after her admission for pneumonia a year ago she was sent home on oxygen which she took for a few weeks but then states her oxygen levels were normal so she returned the oxygen. She also states that she was sent home with some inhalers which she has never taken since that hospitalization. The patient also states that she stopped smoking after that hospitalization but did have a relapse for a little bit but now only smokes pot. The patient also states that she has been having burning when she urinates and is worried that she has a urinary tract infection. The patient also admits to muscle aches and pain all over. Patient denies any headaches, blurred vision, runny nose, difficulty swallowing, palpitations, orthopnea, PND, increased lower extremity swelling, nausea, vomiting, diarrhea, constipation, changes in her abdominal pain, joint swelling, neck stiffness, recent unintentional weight loss, changes in her appetite, skin changes, skin rash, hair loss, polyuria, polydipsia, night sweats or any focal neurologic deficits. On presentation to the emergency department the patient was afebrile but tachycardic with a heart rate of 129, tachypneic in the 20s and hypoxic with an oxygen saturation of 86% on room air. The patient underwent routine lab work which revealed a leukocytosis with a WBC of 16.7, hyponatremia with a sodium of 130 and a mildly elevated glucose of 132. The patient's BNP and troponin were negative. The patient's urine analysis was positive for a urinary tract infection. The patient underwent a chest x-ray which revealed a bibasilar pneumonia and emphysema. In the emergency department the patient was given nebulizer treatments and antibiotics but continued to have wheezing and hypoxia therefore she was admitted to the medical [facility] for treatment of community-acqu ired pneumonia and COPD exacerbation. - ALLERGIES Allergies/Adverse Reactions: Allergies Allergy/AdvReac Type Severity Reaction Status Date / Time No Known Drug Allergies Allergy Verified 08/16/18 22:50 - MEDICATIONS Home Medications: Ambulatory Orders Medication Instructions Recorded Confirmed Methadone 7.5 mg PO 0800 07/09/16 08/17/18 Methadone HCl 5 mg PO 1200 04/27/17 08/17/18 Methadone HCl 5 mg PO QPM 04/27/17 08/17/18 Albuterol Sulf [Ventolin Hfa 1 - 2 puffs INH Q4HR PRN #1 inhaler 08/19/18 Inhaler] Amox/Clav 500/125 [Augmentin] 1 each PO Q12H #14 tablet 08/19/18 Ipratropium [Atrovent] 1 puffs INH Q6H PRN #1 inhaler 08/19/18 predniSONE [Deltasone] 10 mg PO [id number] #21 tab 08/19/18 - PHYSICAL EXAM AT DISCHARGE General Appearance: positive: No acute distress, Alert. negative: Lethargic Eyes Bilateral: positive: Normal inspection, PERRL, No lid inflammation, Conjunctivae nml ENT: positive: ENT inspection nml, Pharynx nml, No signs of dehydration. negative: Purulent nasal drainage, Pharyngeal erythema, Oral lesions Neck: positive: Nml inspection, Thyroid nml, No JVD, Trachea midline. negative: Thyromegaly, Lymphadenopathy (R), Lymphadenopathy (L), Stiff neck, Swelling/bruising, Tracheal deviation Respiratory: positive: Chest non-tender, No respiratory distress, Breath sounds nml. negative: Wheezes, Rales, Rhonchi Cardiovascular: positive: Regular rate & rhythm, No murmur, No gallop. negative: Irregularly irregular, Extrasystoles, Tachycardia, Bradycardia, JVD present, Systolic murmur, Diastolic murmur Peripheral Pulses: positive: 2+ Abdomen: positive: Non-tender, No organomegaly, Nml bowel sounds, No distention. negative: Tenderness, Guarding, Rebound Back: positive: Nml inspection. negative: CVA tenderness (R), CVA tenderness (L) Skin: positive: Color nml, No rash, Warm, Dry. negative: Cyanosis, Diaphoresis, Pallor Extremities: positive: Non-tender, Full ROM, Nml appearance. negative: Calf tenderness, Joint swelling, Isidoro's sign/cords Neurologic/Psychiatric: positive: Oriented x3, Motor nml, Sensation nml, Mo od/affect nml. negative: Weakness, Sensory loss, Facial droop, Slurred/abnml speech, Depressed mood/affect - LABS Result Diagrams: 08/19/18 05:40 08/19/18 05:40 - FOLLOW UP Follow Up: You may follow up your PCP in one week. You are prescribed antibiotics for continuing treatment of your pneumonia and UTI, and breathing treatment for your COPD. You are also prescribed Oxygen. Please follow up RT instruction for how to safely use the oxygen. Should your symptoms return or worsen, your may present ER or call 911 for help. - TIME SPENT Time Spent in Discharge (Minutes): 50
[2018-08-19 16:08] VITALS: BP 148/84
== END 2018-08-19 15:53 | disposition home or self-care (01) | DRG 194 ==
LOC: ED 22:33 → MS2 08-17 03:00
PROVIDERS: ADMIT Internal Medicine; ATTEND Nurse Practitioner Gerontology
DX: J18.9 Pneumonia, unspecified organism (principal); E87.1 Hypo-osmolality and hyponatremia; F17.200 Nicotine dependence, unspecified, uncomplicated; Z86.79 Personal history of other diseases of the circulatory system; Z87.01 Personal history of pneumonia (recurrent); N30.00 Acute cystitis without hematuria; J43.9 Emphysema, unspecified; T48.6X6A Underdosing of antiasthmatics, initial encounter; Z91.128 Patient's intentional underdosing of medication regimen for other reason; R09.02 Hypoxemia; R31.29 Other microscopic hematuria; G89.29 Other chronic pain; R10.9 Unspecified abdominal pain; Z79.891 Long term (current) use of opiate analgesic; Z85.44 Personal history of malignant neoplasm of other female genital organs; Z92.21 Personal history of antineoplastic chemotherapy; Z92.3 Personal history of irradiation; Z87.891 Personal history of nicotine dependence; Z85.51 Personal history of malignant neoplasm of bladder
CPT/HCPCS: 36415; 71045; 80048; 81001; 81003; 83605; 83880; 84484; 85025; 87086; 87798; 93005; 94640; 94761; 96365; 96367; 96375; 99284

== ENCOUNTER 2019-02-16 13:25 | Outpatient (CLI) | payer MEDICARE, MEDICAID ==
--- NOTE | 2019-02-16 16:30 | Mammography Report ---
Reason: SCREENING MAMMO Procedure Date: 02/16/2019 Accession Number: [id number] / [id number] Procedure: [facility] - Screening Mammo w/Dustin CPT Code: FULL RESULT: EXAM: Screening Mammo w/Dustin DATE: 02/16/2019 2:12 PM CLINICAL HISTORY: Screening examination. TECHNIQUE: (B) - Bilateral CC and MLO views were obtained. COMPARISON: 01/25/2018 PARENCHYMAL PATTERN: (A) - The breasts demonstrate scattered fibroglandular densities bilaterally. FINDINGS: There are no suspicious masses, calcifications, or areas of distortion. IMPRESSION: Negative examination. BI-RADS category 1. RECOMMENDATION: (ANNUAL) - Recommend routine annual screening mammography. BI-RADS CATEGORY: (1) - Negative. STANDARD QUALIFYING STATEMENTS: 1. This examination was not reviewed with the aid of Computer-Aided Detection (CAD). 2. A negative or benign imaging report should not preclude biopsy if clinically suspicious findings are present. 3. Dense breasts may obscure an underlying neoplasm. 4. This examination was reviewed with the aid of 3D breast imaging (tomosynthesis).
== END 2019-02-16 13:26 | disposition home or self-care (01) ==
LOC: DI 13:25
PROVIDERS: ATTEND Nurse Practitioner Gerontology
DX: Z12.31 Encounter for screening mammogram for malignant neoplasm of breast (principal)
CPT/HCPCS: 77063; 77067

== ENCOUNTER 2019-04-13 08:00 | Outpatient (CLI) | payer MEDICARE, MEDICAID ==
[2019-04-13 19:02] LABS: BASOPHILS # (AUTO) 0.1 10^3/uL (0.0-0.1); BASOPHILS % (AUTO) 1.3 %; EOSINOPHILS # (AUTO) 0.1 10^3/uL (0.0-0.7); EOSINOPHILS % (AUTO) 1.3 %; HGB - HEMOGLOBIN 14.2 g/dL (12.0-16.0); LYMPHOCYTES # (AUTO) 1.9 10^3/uL (1.5-3.5); LYMPHOCYTES % (AUTO) 31.1 %; MEAN CORPUSCULAR HGB CONC 32.9 g/dL (32.0-36.0); MEAN CORPUSCULAR VOLUME 91.4 fL (81.0-99.0); MEAN PLATELET VOLUME 8.5 fL (7.9-10.8); MONOCYTES # (AUTO) 0.5 10^3/uL (0.0-1.0); NEUTROPHILS # (AUTO) 3.6 10^3/uL (1.5-6.6); NEUTROPHILS % (AUTO) 58.3 %; PLT - PLATELET COUNT 242 10^3/uL (130-450); RED BLOOD COUNT 4.73 10^6/uL (4.20-5.40); RED CELL DISTRIBUTION WIDTH 15.4 % (12.0-15.0); WHITE BLOOD COUNT 6.2 x10^3/uL (4.8-10.8)
[2019-04-13 19:11] LABS: ALBUMIN 4.1 g/dL (3.2-5.5); ALBUMIN/GLOBULIN RATIO 1.2 (1.0-2.2); BILIRUBIN,TOTAL 0.6 mg/dL (0.2-1.0); CALCIUM 9.3 mg/dL (8.5-10.3); CREATININE 0.7 mg/dL (0.4-1.0); TOTAL PROTEIN 7.5 g/dL (6.7-8.2)
== END 2019-04-13 23:59 | disposition home or self-care (01) ==
LOC: LAB.N 08:00
PROVIDERS: ATTEND Nurse Practitioner Gerontology
DX: R53.83 Other fatigue (principal); E87.1 Hypo-osmolality and hyponatremia; Z13.9 Encounter for screening, unspecified
CPT/HCPCS: 36415; 80053; 84443; 85025

== ENCOUNTER 2019-04-28 15:02 | Outpatient (CLI) | payer MEDICARE, MEDICAID ==
--- NOTE | 2019-04-28 17:09 | Ultrasound Report ---
Reason: ABDOMINAL PAIN Procedure Date: 04/28/2019 Accession Number: [id number] / [id number] Procedure: US - Abdomen Complete CPT Code: FULL RESULT: EXAM: ABDOMEN ULTRASOUND. EXAM DATE: 04/28/2019 04:19 PM. CLINICAL HISTORY: Abdominal pain. COMPARISON: None. TECHNIQUE: Real-time scanning was performed with static images obtained. FINDINGS: Liver: Normal in size and echotexture. Note is made of a 0.5 cm simple cyst in the left hepatic lobe. Liver measures at least 14.5 cm. Main portal vein flow: Hepatopetal. Gallbladder: Normal. No stones, wall thickening, or sonographic Lucero's sign. Biliary System: Common bile duct measures 4 mm. No intrahepatic or extrahepatic ductal dilatation. Pancreas: Visualized portion is unremarkable. Kidneys: Right: 9.6 cm longitudinally. Normal. No contour-deforming mass, stones, or hydronephrosis. Left: 10.8 cm longitudinally. The kidney is poorly visualized with no discrete mass seen. Multiple simple appearing cysts are noted which measure up to 0.8 cm. Spleen: 8.5 cm. Normal in size and echotexture. Aorta and Inferior Vena Cava: Aorta is markedly atherosclerotic without aneurysm detected. IVC is unremarkable as seen. Other: None. IMPRESSION: Limited visualization of the left kidney, and atherosclerotic aorta with no other concerning abnormality identified. RADIA
== END 2019-04-28 15:03 | disposition home or self-care (01) ==
LOC: DI 15:02
PROVIDERS: ATTEND Nurse Practitioner Gerontology
DX: R10.9 Unspecified abdominal pain (principal); I70.0 Atherosclerosis of aorta
CPT/HCPCS: 76700

== ENCOUNTER 2020-11-26 11:20 | Outpatient (CLI) | payer MEDICAID, MEDICARE ==
[2020-11-26 17:51] LABS: BILIRUBIN,URINE NEGATIVE (NEGATIVE); CLARITY,URINE CLEAR (CLEAR); GLUCOSE, URINE (UA) NEGATIVE (NEGATIVE); KETONES,URINE (UA) NEGATIVE (NEGATIVE); LEUKOCYTE ESTERASE, URINE NEGATIVE (NEGATIVE); NITRITE,URINE NEGATIVE (NEGATIVE); OCCULT BLOOD,URINE NEGATIVE (NEGATIVE); PROTEIN,URINE NEGATIVE (NEGATIVE); UROBILINOGEN,URINE 0.2 (NORMAL) E.U./dL (NORMAL)
[2020-11-26 18:09] LABS: BACTERIA,URINE None Seen /HPF (None Seen); RBC,URINE None Seen /HPF (0-5); SQUAMOUS EPITHELIAL CELL,UR NONE SEEN (<= Few)
[2020-11-26 18:19] LABS: BASOPHILS # (AUTO) 0.1 10^3/uL (0.0-0.1); BASOPHILS % (AUTO) 0.5 %; EOSINOPHILS % (AUTO) 0.2 %; LYMPHOCYTES # (AUTO) 1.3 10^3/uL (1.5-3.5); LYMPHOCYTES % (AUTO) 9.5 %; MEAN CORPUSCULAR HEMOGLOBIN 27.5 pg (27.0-31.0); MEAN CORPUSCULAR HGB CONC 31.1 g/dL (32.0-36.0); MEAN CORPUSCULAR VOLUME 88.3 fL (81.0-99.0); MEAN PLATELET VOLUME 9.3 fL (7.9-10.8); MONOCYTES % (AUTO) 7.6 %; NEUTROPHILS # (AUTO) 10.7 10^3/uL (1.5-6.6); NEUTROPHILS % (AUTO) 81.9 %; PLT - PLATELET COUNT 460 10^3/uL (130-450); RED BLOOD COUNT 4.37 10^6/uL (4.20-5.40); RED CELL DISTRIBUTION WIDTH 13.2 % (12.0-15.0); WHITE BLOOD COUNT 13.1 x10^3/uL (4.8-10.8)
[2020-11-26 18:23] LABS: ALBUMIN 3.6 g/dL (3.2-5.5); ALBUMIN/GLOBULIN RATIO 0.8 (1.0-2.2); BILIRUBIN,TOTAL 0.4 mg/dL (0.2-1.0); CALCIUM 9.9 mg/dL (8.5-10.3); CREATININE 0.6 mg/dL (0.4-1.0); CRP - C-REACTIVE PROTEIN 6.4 mg/dL (0-1.0); TOTAL PROTEIN 7.9 g/dL (6.7-8.2)
[2020-11-28 12:22] LABS: ANA SCREEN NEGATIVE (NEGATIVE)
== END 2020-11-26 23:59 ==
LOC: LAB.WCP 11:20
PROVIDERS: ATTEND Family Medicine
DX: R10.9 Unspecified abdominal pain (principal); C67.9 Malignant neoplasm of bladder, unspecified; R63.4 Abnormal weight loss; R53.83 Other fatigue
CPT/HCPCS: 36415; 80053; 81001; 82150; 83690; 84443; 85025; 85651; 86038; 86140; 87086

== ENCOUNTER 2020-12-05 07:37 | Outpatient (CLI) | payer MEDICAID, MEDICARE ==
--- NOTE | 2020-12-05 08:19 | XRAY Report ---
PROCEDURE: Chest 2 View X-Ray INDICATIONS: COPD, ABNORMAL WEIGHT LOSS TECHNIQUE: 2 view(s) of the chest. COMPARISON: None. FINDINGS: Surgical changes and devices: None. Lungs and pleura: The lungs are markedly hyperexpanded consistent with provided history of COPD. Ther e is a mass in the left lower lobe measuring approximately 8 cm medially and posteriorly. Suspected h ilar lymphadenopathy present on the lateral view. Bones and chest wall: No suspicious bony abnormalities. Soft tissues appear unremarkable. IMPRESSION: Approximately 8 cm mass in the left lower lobe is highly suspicious for primary lung malignancy. CT o f the chest with IV contrast is recommended. Suspected lymphadenopathy on the lateral view, which would also be further evaluated with contrast en hanced CT chest. Reviewed by: Salbador Jackson MD on 12/05/2020 8:18 AM [facility] Approved by: Salbador Jackson MD on 12/05/2020 8:18 AM [facility] Station ID: [id number]
== END 2020-12-05 23:59 | disposition home or self-care (01) ==
LOC: DI.WCP 07:37
PROVIDERS: ATTEND Family Medicine
DX: J44.9 Chronic obstructive pulmonary disease, unspecified (principal); R63.4 Abnormal weight loss; Z87.01 Personal history of pneumonia (recurrent); R91.8 Other nonspecific abnormal finding of lung field

== ENCOUNTER 2020-12-06 09:52 | Outpatient (CLI) | payer MEDICARE ==
[2020-12-06] MEDS ORDERED: IOPAMIDOL-300 50 ML VIAL ONE (10:05)
[2020-12-06] MEDS ORDERED: IOVERSOL 320 100 ML VIAL IVP ONE ×2 (10:05→13:46)
--- NOTE | 2020-12-06 11:25 | CT Report ---
PROCEDURE: CHEST W INDICATIONS: COPD, ABN WEIGHT LOSS, ABD PAIN. Mass seen on chest radiograph. CONTRAST: IV CONTRAST: Optiray 320 ml: 80 PO CONTRAST: Isovue 300 ml50 TECHNIQUE: After the administration of intravenous contrast, 5 mm thick sections acquired from the pulmonary api vaishali to the posterior costophrenic angles. 7 mm thick coronal MIP reformats were acquired. For radia tion dose reduction, the following was used: automated exposure control, adjustment of mA and/or kV according to patient size. COMPARISON: Chest radiograph dated 12/05/2020. FINDINGS: Image quality: Excellent. No pleural effusion or pneumothorax. There is large heterogeneous mass within the posterior left lowe r lobe measuring 5.6 x 5.1 cm corresponding to the radiographic appearance from the prior study. Diffuse scarring or atelectasis is present. Diffuse peribronchial cuffing suggestive of nonspecific b ronchitis and/or reactive airways disease. Scattered areas of mucoid impaction seen within the right upper lobe image 89/3 and anterior left upp er lobe image 160/3. Mediastinum: Heart size is normal. No pericardial effusion. No mediastinal or hilar adenopathy by size criteria. Thoracic aorta and central pulmonary arteries are normal in size . Esophagus is normal in caliber. No hiatal hernia. Bones and chest wall: No suspicious bony lesions. No vertebral body compression fractures. No axil koffi or supraclavicular adenopathy by size criteria. Thyroid gland contains a low-attenuation nodule seen in the right lobe which would be better assessed with ultrasound as clinically warranted. Abdomen: Visualized upper abdominal solid organs appear normal. Upper abdominal bowel loops are nor mal in caliber. IMPRESSION: Large heterogeneous mass involving posterior left lower lobe as detailed above measuring up to 5.6 cm . This corresponds to the radiographic appearance from the comparison prior study. Findings most susp icious for primary bronchogenic carcinoma. Subcentimeter bilateral hilar lymph nodes without patholog ic enlargement. Scarring and atelectasis without acute consolidation. Diffuse peribronchial cuffing suggestive of nonspecific bronchitis and/or reactive airways disease. Additional chronic and incidental findings as above. Reviewed by: Eugenio Saunders MD on 12/06/2020 11:24 AM PST Approved by: Eugenio Saunders MD on 12/06/2020 11:24 AM PST Station ID: [id number]
--- NOTE | 2020-12-06 11:39 | CT Report ---
PROCEDURE: Abdomen/Pelvis W INDICATIONS: COPD, ABN WEIGHT LOSS, ABD PAIN CONTRAST: IV CONTRAST: Optiray 320 ml: 80 PO CONTRAST: Isovue 300 ml50 TECHNIQUE: After the administration of IV and oral contrast, 5 mm thick sections acquired from the diaphragms to the symphysis. 5 mm thick coronal and sagittal reformats were acquired. For radiation dose reducti on, the following was used: automated exposure control, adjustment of mA and/or kV according to leslie ent size. COMPARISON: CT chest dated same day. FINDINGS: Image quality: Excellent. ABDOMEN: Lung bases: Large mass in the posterior left lower lobe seen on the comparison CT chest dated same da y.Heart size is normal. Solid organs: Ill-defined hypodense lesion seen in segments 5 and 4B of the liver on image 31/3. Wesley tional subcentimeter hepatic foci statistically representing cysts although technically indeterminate due to small size. Spleen unremarkable Gallbladder negative Biliary system is non dilated. Pancreas enhances normally. No adrenal nodule s. Kidneys demonstrate normal size and enhancement, without hydronephrosis. Subcentimeter renal foc i which are statistically cysts, however too to characterize accurately and therefore technically ind eterminate. Peritoneum and bowel: Bowel loops demonstrate normal wall thickness and caliber. No free fluid or a ir. Nodes and vessels: No retroperitoneal or mesenteric adenopathy by size criteria. Aorta and inferior vena cava are normal in size. Scattered vascular calcifications of the aorta. Miscellaneous: No ventral hernias. PELVIS: Genitourinary: Bladder wall thickness is normal. Miscellaneous: No inguinal hernias or adenopathy. Bones: Diffuse spondylosis and facet arthropathy. No vertebral body compression fractures. IMPRESSION: Redemonstrated large mass in the posterior left lower lobe. Large hypodense ill-defined hepatic lesion, highly suspicious for metastatic disease. Additional nons pecific subcentimeter hepatic foci. Reviewed by: Eugenio Saunders MD on 12/06/2020 11:38 AM PST Approved by: Eugenio Saunders MD on 12/06/2020 11:38 AM PST Station ID: [id number]
[2020-12-06] MEDS ORDERED: IOPAMIDOL-300 50 ML VIAL PO ONE (13:46)
== END 2020-12-06 09:53 | disposition home or self-care (01) ==
LOC: DI 09:52
PROVIDERS: ATTEND Nurse Practitioner Family
DX: R10.9 Unspecified abdominal pain (principal); R91.8 Other nonspecific abnormal finding of lung field; K76.9 Liver disease, unspecified; R63.4 Abnormal weight loss; J44.9 Chronic obstructive pulmonary disease, unspecified
CPT/HCPCS: 71260; 74177; Q9967

== ENCOUNTER 2020-12-29 09:44 | Outpatient (CLI) | payer MEDICARE ==
[2020-12-29] MEDS ORDERED: GADOBUTROL 7.5 MMOL/7.5 ML VIAL IVP ONE (11:31)
--- NOTE | 2020-12-29 11:48 | MRI Report ---
PROCEDURE: Brain W/WO INDICATIONS: METASTATIC BREAST CA CONTRAST: IV CONTRAST: Gadavist ml: 4.5 TECHNIQUE: Noncontrast axial T1 spin echo, axial T2 fast spin echo, sagittal and axial FLAIR, coronal T2 fast sp in echo, axial gradient echo, axial diffusion and ADC through the brain. After the administration of contrast, axial and coronal T1 spin echo with fat saturation through the brain. COMPARISON: None. FINDINGS: Image quality: Motion artifact is noted. CSF spaces: Basal cisterns are patent. No extra-axial fluid collections. Ventricles are normal in size and shape. Brain: No midline shift. No intracranial bleeds or masses. No abnormal intracranial enhancement. There is cerebral volume loss for age. There is periventricular white matter chronic small vessel is chemic change. The brainstem appears normal. Diffusion-weighted images demonstrate no acute ischemi c insults. Abnormal T2-weighted/FLAIR hyperintensity can be seen within the midportion of the nathan. N o abnormal enhancement can be seen at this site. Normal intravascular flow voids are present. Skull and face: Calvarial marrow is normal in signal. Orbits appear normal. Sinuses: There is an apparent mucous retention cyst seen within the right sphenoid sinus. Sinuses an d mastoids otherwise appear clear. Moderate rightward nasal septal deviation incidentally noted. IMPRESSION: No masses or abnormal enhancement can be seen. Focus of T2-weighted hyperintensity seen within the mid nathan, which may be related to a remote infarc t. Likely mucous retention cyst seen within the right sphenoid sinus. Reviewed by: Morgan Aranda MD on 12/29/2020 10:47 AM [facility] Approved by: Morgan Aranda MD on 12/29/2020 10:47 AM [facility] Station ID: [id number]
== END 2020-12-29 09:45 | disposition home or self-care (01) ==
LOC: DI 09:44
PROVIDERS: ATTEND Internal Medicine Hematology & Oncology
DX: C67.9 Malignant neoplasm of bladder, unspecified (principal); C34.32 Malignant neoplasm of lower lobe, left bronchus or lung
CPT/HCPCS: 70553; A9585

== ENCOUNTER 2021-01-15 11:00 | Outpatient (CLI) | payer MEDICARE ==
--- NOTE | 2021-01-15 17:10 | CONSULTATION NOTE ---
Palliative Care Consultation - Referral Referring Provider: Dr. Jorge Dotson Time of Visit: 09-13 Referral setting: Home Referral Reason: Pain of neoplastic origin/Met Squamous Cell CA Lung - Information Sources Records reviewed: Previous records reviewed History/Review of Systems obtained from: Patient Exam limitations: No limitations - History of Present Illness Brief History of Present Illness: This is a 55-year-old woman with newly diagnosed metastatic squamous cell carcinoma of the lung, mets to the hilar/mediastinal lymph nodes and liver. She is currently in work-up for staging, she has had significant weight loss, she is quite cachectic in appearance. Her baseline weight is 125, she is currently 89, she is losses fairly slowly over the year more dramatically lost 10 pounds over the last several weeks. She has noted over the last several months increasing fatigue, but had restarted work, and has underlying COPD and poor activity tolerance. She also has chronic pain syndrome with abdominal pain of unknown etiology, which she has been treated since her previous oncologic diagnoses. She is pending follow-up on biopsy first 01/10/2021 results, This will drive her treatment plan, currently she is expecting carboplatinum/Taxol, pembrolizumab. If her liver biopsy per oncology notes, shows PD-L1 greater than 50% she will require only single agent pembrolizumab. Patient is quite frail, concern for patient's tolerance of toxicities. Patient's past medical history includes squamous cell carcinoma of the vagina, treated with surgery, chemoradiation in 2007, and early stage bladder cancer status post resection and intravesical treatment in 2013. Patient symptoms continue to progress, she has had severe escalation in her pain, her baseline abdominal pain, is more diffuse, she has had intermittent gut aches and nausea associated with this, and intermittent diarrhea. She has had an escalation in right upper quadrant pain, she does have worsening chronic back pain, that has escalated since diagnosis of cancer. And new right chest pain below the nipple, radiating through to the right scapula. Her pain is such she is unable to stand for long periods of time, is much more comfortable laying down with weight off feet. She does demonstrate pain behaviors when she is up needing to relieve pain in her lower back. She is quite thin and cachectic, she is having significant fatigue. She is trying to address her issues regarding anorexia with ongoing support through cannabis, and protein shakes. Her current pain regimen is 15 mg of methadone in the a.m. because of her escalating pain, this is her worst time, she has been allotted 25 mg total so has 5 in noon and 5 at bedtime. Her pain currently is inadequately controlled. With her pain at a 8 out of 10. She does present emotionally fragile as well, feeling quite overwhelmed. She has had COPD for multiple years, she quit smoking 4 to 5 years ago, but continues to vape and smoke pot, though she is transitioning to edibles and tinctures. She does understand the seriousness of her illness, and is hoping to be able to extend some quantity of life, but as well as improve quality of life given her fatigue and pain. Medical/Surgical History - Past Medical History Cardiovascular: reports: None Respiratory: reports: COPD, Emphysema, Pneumonia, Shortness of breath Neuro: None Neuro: reports: None Endocrine/Autoimmune: reports: None GI: reports: C.difficile, Chronic diarrhea POLICE INSPECTOR: reports: Other (vaginal cancer) : reports: Frequency HEENT: reports: None Psych: reports: Depression, Anxiety Musculoskeletal: reports: Osteoarthritis, Fatigue, Chronic back pain Derm: reports: None MRSA Hx?: No - Past Surgical History /POLICE INSPECTOR: reports: Hysterectomy, Other (resection for vagincal cancer/bladder ca) Other past surgical history: recent liver biopsy - Substance History Use: Uses substance without health or social issues: Tobacco (hx), Cannabis Social History - Living Situation Living arrangement: At home Living Situation: With spouse/s.o. Support System: Patient lives with her significant other Jd, they have been together 20 years. She does not have any children. She does have 2 sisters who are quite supportive. Her 1 sister is coming to help with caregiving next week. 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 She is still trying to work a couple hours, but is finding this more difficult. Family History - Family History Family History: Mother: ( at 65 of [place]), CAD (had lupus; at 53), Father: , Cancer, Sister: Alive and Well (2 sisters) Medications/Allergies - Medications Home Medications: Ambulatory Orders Medication Instructions Recorded Confirmed Methadone [Methadone Hcl] 15 mg PO 0800 07/09/01/08/21 Methadone HCl 5 mg PO 1200 MDD 10 mg taper 01/1904/27/17 01/08/21 Methadone HCl 10 mg PO QPM MDD taper 01/1504/27/17 01/08/21 Prochlorperazine Maleate 10 mg PO Q6HR PRN #30 tab 01/08/21 01/16/21 [Compazine] dexAMETHasone [Decadron] 8 mg PO UD #18 tablet 01/08/21 01/16/21 - Allergies Allergies/Adverse Reactions: Allergies Allergy/AdvReac Type Severity Reaction Status Date / Time No Known Drug Allergies Allergy Verified 01/08/21 09:56 Review of Systems - Constitutional Constitutional: reports: Fatigue (worsening), Poor appetite, Weight loss (89; baseline 125). denies: Fever, Chills - Eyes Eyes: reports: Blurred vision, Vision loss - Ears, Nose & Throat Ears, Nose & Throat: reports: Dry mouth - Cardiovascular Cardiovascular: reports: Exertional dyspnea, Decr. exercise tolerance - Respiratory Respiratory: reports: Cough, SOB at rest, SOB with exertion. denies: Sputum production, Wheezing - Gastrointestinal Gastrointestinal: reports: Abdominal pain, Diarrhea, Poor appetite, Early satiety. denies: Rectal bleeding, Nausea, Reflux/heartburn - Genitourinary Genitourinary: reports: Frequency - Musculoskeletal Musculoskeletal: reports: Back pain, Muscle aches, Stiffness, Limited range of motion, Muscle weakness - Integumentary Integumentary: reports: Dryness - Neurological Neurological: reports: General weakness, Abnormal gait - Psychiatric Psychiatric: reports: Depression, Anxiety - All Other Systems All Other Systems: reports: Reviewed and negative Physical Exam - Vital Signs Temperature: 97.5 C Pulse Rate: 112 Respiratory Rate: 18 O2 Saturation: 94 (at rest and with ambulation) Blood Pressure: 128/64 - Physical Exam General Appearance: positive: Alert, Mild distress, Anxious Eyes Bilateral: positive: Normal inspection ENT: positive: No signs of dehydration Neck: positive: Trachea midline Cardiovascular: positive: Tachycardia Respiratory: positive: Diminished throughout. negative: No respiratory distress (respiratory effort with conversation), Wheezes, Rales, Rhonchi Abdomen: positive: Nml bowel sounds, Tenderness Skin: positive: Dryness, Other (sallow) Extremities: positive: No pedal edema Neurologic/Psychiatric: positive: Oriented x3, Weakness Palliative Care - POLST Patient has POLST: No Pain: Pain worsening, Location (see HPI) Tiredness/Fatigue: Severe (7-10) Drowsiness/Sedation: Mild (1-3) Nausea: None Anorexia: Severe (7-10) Dyspnea: Severe (7-10) Depression: Moderate (4-6) Anxiety: Severe (7-10) Feelings of wellbeing/Perceived Quality of Life: Poor, Worsening Sleep: Variable sleep pattern Constipation: No Performance Status: Patient is trying to say independent, but having more difficult with activity tolerance, both related to breathlessness and pain. 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 She does have a plan for transition if needed. She can ambulate short distances, she is still driving if needed, but would put her at a PPS of 70%. - Palliative Care Discussion: Patient does understand the seriousness of her illness, she would like to try treatment. Though she does understand she is at high risk for complications given her poor underlying health. She is hoping for the best, she is still reeling somewhat from her diagnosis. She still needs to meet with oncology to finalize treatment plan. She is thankful her sister who is older than her is coming out to stay and help her navigate some of this and provide ongoing support. She does feel some pressure to get her affairs in order, but is feeling somewhat overwhelmed with this task. Did focus on just taking a step at a time, most important step at this point in time would certainly be a DPOA, counseling provided regarding role of DPOA, whether it be her SBO or her sister given what that role might entail.Her short-term goals are to have better pain control, and to start on her treatment regimen. She would also like to continue to work on getting her affairs in order and end-of-life planning. Impression and Recommendations - Palliative Care Impression: This is a 54-year-old woman with squamous cell carcinoma of the lung, with liver mets and chronic pain syndrome. Patient presenting with escalating pain with new diagnosis, has long-term been on methadone, will titrate to effect. Patient awaiting final treatment plan, initiated conversations regarding goals of care and advance care planning today. Palliative care to provide support for pain and symptom management and anticipatory guidance. Recommendations/Counseling Done: 1. Acute on chronic pain. Patient's pain is multifactorial, with longstanding chronic abdominal pain syndrome, now with acute pain related to her worsening and progressive cancer diagnosis. Counseling provided after weighing benefits and burdens of current regimen, will titrate up to effect. Patient instructed to increase her evening dose to 10 mg, will be receiving 15 mg a.m. 5 mg at noon. Will make arrangements to get old records as well as EKG with next time into clinic. Patient does have Narcan but in home, will reorder. We will at this point time hold off before adding yet another opioid in there, methadone is biphasic, will continue to monitor. 2. Weight loss. Patient is using cannabis with hope to have increased appetite, and is transitioning from vaping to edibles. Patient is using protein shakes and concentrating on increasing calories. Patient would benefit from counseling with dietitian, will send email to verify referral. 3. Fatigue. This is multifactorial, patient with muscle mass loss, increased dyspnea and respiratory symptoms, as well as worsening pain. We will continue to monitor. Encouraged to be as independent and active within the context of her symptom burden. 4. Squamous cell carcinoma of the lung. Patient pending liver biopsy, for treatment plan, she reports her MRI of her brain was negative. Follow-up with oncology regarding patient's understanding would be starting treatment soon. 5. Advanced care planning. Initiated conversation regarding goals of care, advanced care planning, left simple DPOA form to identify DPOA. She will speak with her significant other as well as her sister, and complete. We will continue to explore goals of care in the context of treatment plan, and patient's anxiety. 60 minutes with greater than 50% of this done in counseling regarding pain and symptom management, new diagnosis, anticipatory guidance, coordination of care with oncology team.
== END 2021-01-15 11:01 | disposition home or self-care (01) ==
LOC: PC 11:00
PROVIDERS: ATTEND Nurse Practitioner Adult Health
DX: Z51.5 Encounter for palliative care (principal); R10.11 Right upper quadrant pain; G89.4 Chronic pain syndrome; R63.4 Abnormal weight loss; R53.83 Other fatigue; C34.90 Malignant neoplasm of unspecified part of unspecified bronchus or lung; C77.1 Secondary and unspecified malignant neoplasm of intrathoracic lymph nodes; C78.7 Secondary malignant neoplasm of liver and intrahepatic bile duct; J44.9 Chronic obstructive pulmonary disease, unspecified; Z87.891 Personal history of nicotine dependence; Z85.44 Personal history of malignant neoplasm of other female genital organs; Z85.51 Personal history of malignant neoplasm of bladder; Z79.899 Other long term (current) drug therapy
CPT/HCPCS: 99344

== ENCOUNTER 2021-01-22 20:46 | Emergency (ER) | payer MEDICARE ==
--- NOTE | 2021-01-22 20:59 | ED Physician Documentation ---
PD HPI NVD - Stated complaint Stated Complaint: NAUSEA, DEHYDRATION - Chief complaint Chief Complaint: General - History obtained from History obtained from: Patient - History of Present Illness Timing - onset: How many days ago (4) Timing - duration: Days (4) Timing - details: Gradual onset (onset shortly after getting chemo first dosings in [facility] 4 days ago, and has persisted with nausea and episodic vomiting despite PO Compazine. She states had Zofran for first 1-2 days as well, with slight improvement. Not improved with the Compazine.), Still present Associated symptoms: Loss of appetite. No: Fever, Abdominal pain, Chest pain, Near syncope / syncope (but feeling some lightheaded) Contributing factors: Other (chemotherapy 4 days ago, first course of it for new Dx of lung cancer with mets to liver.). No: Sick contact, Bad food, Recent antibiotics, Diabetes Improved by: No: Vomiting, BM Worsened by: Eating Similar symptoms before: Has not had sx before Recently seen: Clinic ([facility] for chemotherapy (3 meds including Cisplatin, and a ____mab)) Review of Systems Constitutional: reports: Fatigue. denies: Fever, Chills, Myalgias Nose: denies: Rhinorrhea / runny nose, Congestion Throat: denies: Sore throat Respiratory: denies: Cough GI: reports: Nausea, Vomiting. denies: Abdominal Pain, Constipation, Diarrhea, Bloody / black stool : denies: Dysuria, Frequency Neurologic: reports: Generalized weakness. 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: Other (vaginal cancer) : Frequency HEENT: None Psych: Depression, Anxiety Musculoskeletal: Osteoarthritis, Fatigue, Chronic back pain Derm: None - Past Surgical History Past Surgical History: Yes /INVESTMENT BROKER: Hysterectomy, Other (resection for vagincal cancer/bladder ca) - Present Medications Home Medications: Ambulatory Orders Medication Instructions Recorded Confirmed Methadone HCl 10 mg PO QPM MDD taper 01/1504/27/17 01/08/21 Prochlorperazine Maleate 10 mg PO Q6HR PRN #30 tab 01/08/21 01/16/21 [Compazine] Naloxone HCl [Narcan] PRN 01/22/21 Famotidine [Pepcid] 20 mg PO DAILY #30 tablet 01/23/21 Ondansetron Odt [Zofran] 4 mg TL Q6H PRN #20 tablet 01/23/21 - Allergies Allergies/Adverse Reactions: Allergies Allergy/AdvReac Type Severity Reaction Status Date / Time No Known Drug Allergies Allergy Verified 01/08/21 09:56 - Social History Does the pt smoke?: Yes Smoking Status: Former smoker Does the pt drink ETOH?: No Does the pt have substance abuse?: Yes - Immunizations Immunizations are current?: Yes - POLST Patient has POLST: No POLST Status: Full Code PD ED PE NORMAL - Vitals Vital signs reviewed: Yes - General General: Alert and oriented X 3. No: Well developed/nourished (very thin appearing. ) - HEENT HEENT: Pharynx benign. No: Moist mucous membranes - Neck Neck: Supple, no meningeal sign, No adenopathy - Cardiac Cardiac: RRR (tachycardic but regular), No murmur - Respiratory Respiratory: No: Clear bilaterally (mild congestion right side. No wheezing. ) - Abdomen Abdomen: Soft, Non distended, No organomegaly, Other (some tender epigastric area without guarding nor percussion tender. ). No: Normal bowel sounds (decreased) - Female Female : Deferred - Rectal Rectal: Deferred - Back Back: No CVA TTP - Derm Derm: Warm and dry. No: Normal color (somewhat pale. ) - Extremities Extremities: No tenderness to palpate, No edema, No calf tenderness / cord - Neuro Neuro: Alert and oriented X 3, No motor deficit, No sensory deficit Results - Vitals Vitals: Vital Signs - 24 hr 01/22/21 01/22/21 01/23/21 20:55 22:07 00:30 Temperature 37.3 C 37.3 C Heart Rate 141 H 108 H 94 Respiratory 18 16 17 Rate Blood Pressure 165/110 H 149/97 H O2 Saturation 95 97 96 01/23/21 00:42 Temperature 37.3 C Heart Rate 91 Respiratory 17 Rate Blood Pressure 149/97 H O2 Saturation 96 Oxygen O2 Source Room air - EKG (time done) 21:21 Rate: Rate (enter#) (118) Rhythm: Sinus tachycardia [place]: Normal Intervals: Normal [place] QRS: Normal Ischemia: Normal ST segments. No: ST elevation c/w ischemia, ST depression - Labs Labs: Laboratory Tests 01/22/21 01/22/21 01/22/21 20:59 20:59 21:20 WBC 20.0 H RBC 5.58 H Hgb 13.9 Hct 43.8 MCV 78.5 L MCH 24.9 L MCHC 31.7 L RDW 15.0 Plt Count 674 H MPV 9.2 Neut # (Auto) 18.4 H Lymph # (Auto) 0.9 L [place] # (Auto) 0.3 Eos # (Auto) 0.1 Baso # (Auto) 0.1 Absolute Nucleated RBC 0.00 Band Neuts % (Manual) Not Reportable Abnorm Lymph % (Manual) Not Reportable Nucleated RBC % 0.0 Neutrophils # (Manual) Not Reportable Lymphocytes # (Manual) Not Reportable Monocytes # (Manual) Not Reportable Eosinophils # (Manual) Not Reportable Basophils # (Manual) Not Reportable Differential Comment MANUAL=AUTO DIFF Manual Slide Review Indicated Platelet Estimate INCREASED (>450,000) Platelet Morphology NORMAL APPEARANCE RBC Morph Micro Appear NORMAL APPEARANCE Sodium 131 L Potassium 4.4 Chloride 85 L Carbon Dioxide 28 Anion Gap 18.0 H BUN 30 H Creatinine 0.9 Estimated GFR (MDRD) 65 L Glucose 182 H Lactic Acid 3.2 H* Calcium 12.0 H* Magnesium 2.3 Total Bilirubin 1.0 AST 22 ALT 18 Alkaline Phosphatase 99 Total Protein 7.9 Albumin 3.3 Globulin 4.6 H Albumin/Globulin Ratio 0.7 L Lipase 18 L Urine Color Urine Clarity Urine pH Ur Specific [place] Urine Protein Urine Glucose (UA) Urine Ketones Urine Occult Blood Urine Nitrite Urine Bilirubin Urine Urobilinogen Ur Leukocyte Esterase Ur Microscopic Review Urine Culture Comments 01/22/21 01/22/21 01/22/21 23:17 23:17 23:33 WBC RBC Hgb Hct MCV MCH MCHC RDW Plt Count MPV Neut # (Auto) Lymph # (Auto) [place] # (Auto) Eos # (Auto) Baso # (Auto) Absolute Nucleated RBC Band Neuts % (Manual) Abnorm Lymph % (Manual) Nucleated RBC % Neutrophils # (Manual) Lymphocytes # (Manual) Monocytes # (Manual) Eosinophils # (Manual) Basophils # (Manual) Differential Comment Manual Slide Review Platelet Estimate Platelet Morphology RBC Morph Micro Appear Sodium Potassium Chloride Carbon Dioxide Anion Gap BUN Creatinine Estimated GFR (MDRD) Glucose Lactic Acid 2.4 H Calcium 9.7 Magnesium Total Bilirubin AST ALT Alkaline Phosphatase Total Protein Albumin Globulin Albumin/Globulin Ratio Lipase Urine Color YELLOW Urine Clarity CLEAR Urine pH 6.0 Ur Specific [place] 1.025 Urine Protein NEGATIVE Urine Glucose (UA) NEGATIVE Urine Ketones NEGATIVE Urine Occult Blood NEGATIVE Urine Nitrite NEGATIVE Urine Bilirubin NEGATIVE Urine Urobilinogen 0.2 (NORMAL) Ur Leukocyte Esterase NEGATIVE Ur Microscopic Review NOT INDICATED Urine Culture Comments NOT INDICATED - Rads (name of study) chest xray Radiology: Prelim report reviewed (lung mass left lower; no acute new findings. ), See rad report PD MEDICAL DECISION MAKING - ED course Complexity details: reviewed results (lactate and calcium elevated, and could be just dehydration. No obvious infectious process by symptoms. Recheck labs much improved with just hydration. ), re-evaluated patient (feeling much better and has improved color. Taking sips PO okay. ), considered differential (likely chemo induced nausea/gastritis. She would much prefer going home. ), d/w patient Departure - Departure Disposition: 01 , Self Care Clinical Impression: Chemotherapy induced nausea and vomiting, Dehydration, Serum calcium elevated Condition: Stable Record reviewed to determine appropriate education?: Yes Instructions: ED Nausea Vomiting Follow-Up: Jorge Camargo MD [Provider Admit Priv/Credential] - Larissa Hanson ARNP [Provider Admit Priv/Credential] - Halley Henderson MD [Provider Admit Priv/Credential] - Prescriptions: Famotidine [Pepcid] 20 mg PO DAILY #30 tablet Ondansetron Odt [Zofran] 4 mg TL Q6H PRN #20 tablet PRN Reason: Nausea / Vomiting Comments: Continue usual medications. Add Ondansatron every 6 hours if needed for nausea. Also add famotidine acid reducing medicine daily as the chemotherapy will often cause a bit of stomach irritation/gastritis. Follow-up with your primary care/palliative care/oncologist in the next couple of days. Return as needed. Small frequent fluids and food as tolerated. Discharge Date/Time: 01/23/21 00:49
[2021-01-22] MEDS ORDERED: DEXAMETHASONE 10 MG/ML VIAL IVP STA (21:07)
[2021-01-22] MEDS ORDERED: DROPERIDOL 5 MG/2 ML VIAL IVP STA (21:07)
[2021-01-22] MEDS ORDERED: FAMOTIDINE 20 MG/2 ML VIAL IVP STA (21:07)
[2021-01-22] MEDS ORDERED: SODIUM CHLORIDE 0.9% 1,000 ML IV STA ×2 (21:07→22:32)
[2021-01-22] MEDS ORDERED: LACTATED RINGERS 1,000 ML IV STA (21:08)
[2021-01-22 21:15] LABS: BASOPHILS # (AUTO) 0.1 10^3/uL (0.0-0.1); BASOPHILS % (AUTO) 0.4 %; EOSINOPHILS # (AUTO) 0.1 10^3/uL (0.0-0.7); EOSINOPHILS % (AUTO) 0.7 %; HCT - HEMATOCRIT 43.8 % (37.0-47.0); HGB - HEMOGLOBIN 13.9 g/dL (12.0-16.0); LYMPHOCYTES # (AUTO) 0.9 10^3/uL (1.5-3.5); LYMPHOCYTES % (AUTO) 4.3 %; MEAN CORPUSCULAR HEMOGLOBIN 24.9 pg (27.0-31.0); MEAN CORPUSCULAR HGB CONC 31.7 g/dL (32.0-36.0); MEAN CORPUSCULAR VOLUME 78.5 fL (81.0-99.0); MEAN PLATELET VOLUME 9.2 fL (7.9-10.8); MONOCYTES # (AUTO) 0.3 10^3/uL (0.0-1.0); MONOCYTES % (AUTO) 1.5 %; NEUTROPHILS # (AUTO) 18.4 10^3/uL (1.5-6.6); NEUTROPHILS % (AUTO) 91.7 %; PLT - PLATELET COUNT 674 10^3/uL (130-450); RED BLOOD COUNT 5.58 10^6/uL (4.20-5.40)
[2021-01-22 21:19] LABS: SLIDE REVIEW? Indicated
[2021-01-22 21:33] LABS: DIFFERENTIAL COMMENT MANUAL=AUTO DIFF; PLATELET ESTIMATE, MANUAL INCREASED (>450,000) (NORMAL); PLATELET MORPHOLOGY NORMAL APPEARANCE (NORMAL); RBC MORPHOLOGY (MULTIPLE) NORMAL APPEARANCE (NORMAL)
[2021-01-22 21:57] LABS: ALBUMIN 3.3 g/dL (3.2-5.5); ALBUMIN/GLOBULIN RATIO 0.7 (1.0-2.2); CREATININE 0.9 mg/dL (0.4-1.0); MAGNESIUM 2.3 mg/dL (1.7-2.8); POTASSIUM 4.4 mmol/L (3.5-5.0); TOTAL PROTEIN 7.9 g/dL (6.7-8.2)
[2021-01-22 22:08] VITALS: BP 149/97
[2021-01-22 23:42] LABS: BILIRUBIN,URINE NEGATIVE (NEGATIVE); GLUCOSE, URINE (UA) NEGATIVE (NEGATIVE); KETONES,URINE (UA) NEGATIVE (NEGATIVE); LEUKOCYTE ESTERASE, URINE NEGATIVE (NEGATIVE); NITRITE,URINE NEGATIVE (NEGATIVE); OCCULT BLOOD,URINE NEGATIVE (NEGATIVE); PROTEIN,URINE NEGATIVE (NEGATIVE); UROBILINOGEN,URINE 0.2 (NORMAL) E.U./dL (NORMAL)
[2021-01-22 23:44] LABS: CLARITY,URINE CLEAR (CLEAR)
[2021-01-23] MEDS ORDERED: ONDANSETRON 4 MG/2 ML VIAL IVP STA (00:02)
--- NOTE | 2021-01-23 09:57 | XRAY Report ---
PROCEDURE: Chest 1 View X-Ray INDICATIONS: chest pain TECHNIQUE: One view of the chest was acquired. COMPARISON: CT chest 12/06/2020 FINDINGS: Surgical changes and devices: None. Lungs and pleura: Masslike opacity within the retrocardiac region appearing more prominent when samson red to prior exam. Mediastinum: Mediastinal contours appear normal. Heart size is normal. Bones and chest wall: No suspicious bony lesions. Overlying soft tissues appear unremarkable. IMPRESSION: More prominent appearance of masslike retrocardiac opacity identified on CT scan of 12/06/2020. As cli nically indicated, interval evaluation with CT may be obtained. Reviewed by: Didi Oconnell MD on 01/23/2021 9:56 AM PDT Approved by: Didi Oconnell MD on 01/23/2021 9:56 AM PDT Station ID: [id number]
== END 2021-01-23 00:49 | disposition home or self-care (01) ==
LOC: ED 20:46
DX: E86.0 Dehydration (principal); R11.2 Nausea with vomiting, unspecified; T45.1X5A Adverse effect of antineoplastic and immunosuppressive drugs, initial encounter; C34.90 Malignant neoplasm of unspecified part of unspecified bronchus or lung; C78.7 Secondary malignant neoplasm of liver and intrahepatic bile duct; R74.8 Abnormal levels of other serum enzymes; J43.9 Emphysema, unspecified; Z87.891 Personal history of nicotine dependence; R00.0 Tachycardia, unspecified
CPT/HCPCS: 36415; 71045; 80053; 81003; 82310; 83605; 83690; 83735; 85025; 93005; 96361; 96374; 99284; J7120; 81001; 87086

== ENCOUNTER 2021-01-24 14:15 | Outpatient (CLI) | payer MEDICARE ==
--- NOTE | 2021-01-24 16:07 | CONSULTATION NOTE ---
Palliative Care Follow Up - Referral Referring Provider: Dr. Jihan Ervin Time of Visit: [id number] Referral setting: Home Referral Reason: Pain of neoplastic origin/Dehydration/Met SCC Lung CA with liver mets - Information Sources Records reviewed: Previous records reviewed History/Review of Systems obtained from: Patient, Family (sister Sirisha present) Exam limitations: Clinical condition (mild STM issues with feeling poorly) - History of Present Illness Update Brief HPI Update: This is a 55-year-old woman with newly diagnosed metastatic squamous cell carcinoma of the lung, mets to the hilar/mediastinal lymph nodes and liver. She is received her liver biopsy on 01/10/2021, awaiting final results of outcome of PD-L1, to see if she will need further carboplatinum/Taxol. She did receive her first dose on Thursday, along with pembrolizumab, unfortunately she did have severe toxicities. She was feeling fairly well on Thursday, started to have some nausea and vomiting onset, she had escalating right upper quadrant pain, and finally her family convinced her to go to the emergency room on 01/22. She did present with leukocytosis, but had been also taking Decadron 8 mg for 3 days, elevated calcium, dehydration, and poorly controlled nausea and vomiting. She still presents with orthostasis, she is doing better with food and fluids, she has not needed as much antiemetic. She has not picked up her medications prescribed in the ED. Her Sister Sirisha has been with her for the last few days, was quite scared and frustrated with her go in until she was severely impacted. She continues still with some intermittent right upper quadrant pain, she is currently on her methadone 10 mg 3 times daily, with baseline improvement overall. She does have some left lower quadrant pain, though was relieved with some passing of hard stool. She is now having constipation. She also reports shortness of breath, this worsens with activity, she also is having a cough, with slightly hooper-tinged sputum, though it is quite sick and phlegmy. She is with significant COPD, very frail and cachectic in appearance, and feeling somewhat overwhelmed. Past Medical History: Of the vagina, treated with surgery chemoradiation 2007, early stage bladder cancer Papillary urethral carcinoma, low-gradestatus post resection and intravesical treatment in 2013, COPD, emphysema, C. difficile, chronic diarrhea, depression, anxiety, osteoarthritis, fatigue, chronic back pain Social History - Living Situation Living arrangement: At home Living Situation: With spouse/s.o. Support System: Patient has been on disability for long-term chronic abdominal pain, she did try and work this last year, but is now needing to resign. She lives with her significant other, years. She does not have any children. She has 2 sisters, her sister Sirisha lives in [place] she is here presently but will be going home. Her other sister is coming from [place] in her RV, with plan to stay and provide caregiving. Medications/Allergies - Medications Home Medications: Ambulatory Orders Medication Instructions Recorded Confirmed Methadone HCl 10 mg PO TID 04/27/17 01/24/21 Prochlorperazine Maleate 10 mg PO Q6HR PRN #30 tab 01/08/21 01/24/21 [Compazine] Naloxone HCl [Narcan] 1 spray ABDULLAHI ONCE 01/22/21 01/24/21 Famotidine [Pepcid] 20 mg PO DAILY #30 tablet 01/23/21 01/24/21 Ondansetron Odt [Zofran] 4 mg TL Q6H PRN #20 tablet MDD use 01/23/21 01/24/21 sparingly after compazine Senna [Senokot] 1 - 2 tab PO BID PRN 01/24/21 01/24/21 polyethylene glycoL 3350 [Miralax] 17 gm PO DAILY MDD bid 01/24/21 01/24/21 - Allergies Allergies/Adverse Reactions: Allergies Allergy/AdvReac Type Severity Reaction Status Date / Time No Known Drug Allergies Allergy Verified 01/08/21 09:56 Review of Systems - Constitutional Constitutional: reports: Poor appetite, Weight loss (89; baseline 125). denies: Fever, Chills - Eyes Eyes: reports: Blurred vision, Vision loss - Ears, Nose & Throat Ears, Nose & Throat: reports: Dry mouth - Cardiovascular Cardiovascular: reports: Exertional dyspnea, Decr. exercise tolerance - Respiratory Respiratory: reports: Cough, Sputum production (godoy thick phegm), SOB at rest, SOB with exertion. denies: Wheezing - Gastrointestinal Gastrointestinal: reports: Abdominal pain, Constipation, Poor appetite, Early satiety. denies: Rectal bleeding, Nausea, Reflux/heartburn - Genitourinary Genitourinary: reports: Frequency - Musculoskeletal Musculoskeletal: reports: Back pain, Muscle aches, Stiffness, Limited range of motion, Muscle weakness - Integumentary Integumentary: reports: Dryness - Neurological Neurological: reports: General weakness, Abnormal gait - Psychiatric Psychiatric: reports: Depression, Anxiety - All Other Systems All Other Systems: reports: Reviewed and negative Physical Exam - Vital Signs Temperature: 97.7 C Pulse Rate: 117 (sitting 120 standing) Respiratory Rate: 18 O2 Saturation: 94 (sitting 92 standing with effort) Blood Pressure: 142/62 (sitting 108/62 standing) - Physical Exam General Appearance: positive: Alert, Mild distress, Cachetic Eyes Bilateral: positive: Normal inspection ENT: negative: Oral lesions Neck: positive: Trachea midline Cardiovascular: positive: Tachycardia Respiratory: positive: Diminished throughout. negative: No respiratory distress (respiratory effort with conversation), Wheezes, Rales, Rhonchi Abdomen: positive: Abnml bowel sounds, Tenderness (left lower quadrant) Skin: positive: Dryness, Other (sallow) Extremities: positive: No pedal edema Neurologic/Psychiatric: positive: Oriented x3, Mood/affect nml, Weakness, Flat affect, Other Palliative Care - POLST Patient has POLST: No POLST Status: Full Code Pain: Pain improved, Location (abdominal/chest / back improved-still has persistent LLQ pain relieved with BM) Tiredness/Fatigue: Severe (7-10) Drowsiness/Sedation: Moderate (4-6) Nausea: Mild (1-3) (improving) Anorexia: Moderate (4-6), Weight loss Dyspnea: Severe (7-10) (with activity) Depression: Moderate (4-6) Anxiety: Moderate (4-6) Feelings of wellbeing/Perceived Quality of Life: Poor, Worsening Sleep: Variable sleep pattern Constipation: Yes, Opoid induced, Intermittent constipation Performance Status: Patient is severely limited by her breathlessness and pain, can ambulate only short distances in the home. She does have pretty severe activity intolerance with her worsening weakness. - Palliative Care Discussion: Patient is feeling somewhat overwhelmed with her first chemotherapy treatment, had significant side effects. She did end up in the emergency room. She has picked her durable power of health civil rights attorney which is her sister Sirisha PATER Y phone [phone]. We did have a conversation in the context that Sirisha was clear that patient was not ready to be a DNR yet, we did discuss in the context of advanced cancer DNR does not mean do not treat, she could still go to the ED, they would still aggressively manage her symptoms, it would be just if it was her end-of-life, they would allow natural . Patient is very frail, most likely would not survive a resuscitative event. Did discuss we did not need to make this decision at this time, just want to make sure that she understood it does not mean they do not fight, or to give up, but would be based more on her likelihood to survive an end-of-life event. Patient verbalizes understanding, and would like to continue the conversation at another time. She is awaiting final outcome for her testing, and next set of appointments. Results - Lab Results Lab results reviewed: Yes Lab and Imaging Results: Lactic acid has decreased to 2.4, calcium 9.7 had been elevated on arrival, her sodium was 131, 4.4 potassium, BUN 30, GFR 65, original calcium had been 12.0 WBC 20.0 hemoglobin 13.9, hematocrit 43.8 Impression and Recommendations - Palliative Care Impression: This is a 54-year-old woman with squamous cell carcinoma of the lung, with liver mets and underlying chronic pain syndrome. Patient had presented with escalating pain with new diagnosis, she did receive chemotherapy on Thursday with worsening toxicities, she still presents with symptoms of dehydration though is improving somewhat today. Palliative care to continue provide support for pain and symptom management, continue to build rapport in the context of advanced care planning. Recommendations/Counseling Done: 1. Pain of neoplastic origin. Patient's pain is multifactorial, she has underlying chronic pain syndrome, increased right upper quadrant pain related to liver mets, now presents with left lower quadrant discomfort suspect more related to her constipation. Patient has been titrated up on her methadone from 2025 mg total to 30 mg with improvement overall of her pain. She has she is some intermittent Advil 200 mg for her right upper quadrant liver pain with some relief. Patient feels current regimen is acceptable. Patient did receive a EKG last Thursday in preparation for titration of her methadone, her QTC was 409. 2. Constipation. This is opioid induced. Patient has not had a bowel movement for several days, though has had little in. She reports she just passed some hard stool. Patient educated and instructed to use MiraLAX 17 g daily, titrate to effect. She was also instructed to initiate senna 8.6 mg 2 tabs up to 3 times a day. Counseling provided for both her and her sister for titration with the goal for soft BM daily. 3. Nausea/vomiting. This most likely related to her toxicities from her chemotherapy. She believes she did take the dexamethasone it was ordered 8 mg for 3 days, and did finally initiate her prochlorperazine, appears most likely did this late in the game. The ED did order ondansetron ODT, given the patient is on methadone, requested she do the prochlorperazine first, and the ODT only for rescue it issues if she was having vomiting. Counseling provided regarding her regimen prescribed by Katalina Case PA-C for next round, sister Sirisha will over see. 4. Cough. Patient reports thick hooper sputum, and phlegm. Patient has severe underlying COPD. Breath sounds are quite diminished throughout, instructed to initiate Mucinex 600 mg twice daily to thin secretions, and continue to push fluids. Patient without any other signs or symptoms of infection no fever or chills, she did have leukocytosis, suspect related to her dexamethasone, will continue to monitor. 5. Dehydration. Patient remains tachycardic, with orthostatic hypotension. Call to [facility] to order 1 L of normal saline over 2 hours, patient to have an appointment at 2:00, this was shared with patient agreed for follow through. She is hoping to get tuned up before the weekend. 6. Advanced care planning. Patient did complete the DPOA, with Sirisha as her first choice her second sister and then Jd. She feels this would be most congruent with who knows to the best. We did initiate some conversations about CODE STATUS and need for advanced care planning. Patient acknowledges understanding, will reapproach and discuss with next visit. 50% of this done in counseling regarding pain and symptom management coordination of care with oncology team, and anticipatory guidance.
--- OUTSIDE RECORDS SUMMARY | 2021-02-05 19:11 | EXTERNAL MEDICAL SUMMARY RPT | Continuity of Care Document ---
:1965 Demographics Phone Unavailable Preferred Language Unknown Marital Status Unknown Confucianism Affiliation Unknown Race Unknown Ethnic Group Unknown Author Organization [place] Address [address] [phone] Phone Social History date description facility [phone]
== END 2021-01-24 14:16 | disposition home or self-care (01) ==
LOC: PC 14:15
PROVIDERS: ATTEND Nurse Practitioner Adult Health
DX: Z51.5 Encounter for palliative care (principal); C34.90 Malignant neoplasm of unspecified part of unspecified bronchus or lung; C77.1 Secondary and unspecified malignant neoplasm of intrathoracic lymph nodes; C78.7 Secondary malignant neoplasm of liver and intrahepatic bile duct; J43.9 Emphysema, unspecified; G89.3 Neoplasm related pain (acute) (chronic); G89.4 Chronic pain syndrome; R10.32 Left lower quadrant pain; K59.03 Drug induced constipation; T40.2X5A Adverse effect of other opioids, initial encounter; R11.2 Nausea with vomiting, unspecified; R05 Cough; E86.0 Dehydration; I95.1 Orthostatic hypotension; R00.0 Tachycardia, unspecified; Z79.899 Other long term (current) drug therapy
CPT/HCPCS: 99349

== ENCOUNTER 2021-01-29 14:15 | Outpatient (CLI) | payer MEDICARE ==
--- NOTE | 2021-01-29 16:19 | CONSULTATION NOTE ---
Palliative Care Follow Up - Referral Referring Provider: Dr. Jihan Dotson Time of Visit: [id number] Referral setting: Home Referral Reason: Hypoxia/LE edema/Met Lung CA/Pain of neoplastic origin - Information Sources Records reviewed: Previous records reviewed History/Review of Systems obtained from: Patient Exam limitations: No limitations - History of Present Illness Update Brief HPI Update: This is a 56-year-old woman with newly diagnosed metastatic squamous cell carcinoma of the lung, mets to the hilar/mediastinal lymph nodes, and liver. She received her liver biopsy on 01/10/2021, unfortunately results of the PDL1 were negative, so she will continue to receive her carboplatinum/Taxol and pembrolizumab. She received her first treatment on 01/18, unfortunately did poorly over the weekend landing in the emergency room with dehydration. I had seen her on 01/24, still was not doing well, made arrangements for her to have another liter for 01/25. We also titrated her pain medications up to 10 mg 3 times daily at the methadone, her pain has currently is controlled, with only the occasional extra ibuprofen. When I called to follow-up today, patient reports she has been hypoxic for several days, she has an oximeter and reports have been in the 80s. She denies any respiratory distress, does report continues to have chest heaviness, productive cough of beige sputum.Patient is requesting oxygen, did need to make a home visit to be able to qualify in order. Patient looks quite exhausted, she is not in respiratory distress, but her O2 sats are at 83%, with ambulation dropped down to 81%. She is also sustained her tachycardia, which is 114 at rest, and up to 130 with ambulation. Patient's family has wanted her to go to the emergency room, she has been quite resistant. We did discuss given her hypoxia, her worsening lower extremity edema, and concern for her comfort would recommend she go to the emergency room as well. She is quite resistant/hesistant, but is agreeable to come in for a chest x-ray, and labs, to evaluate if patient experiencing fluid overload and/or infection. Patient is approaching her cecilia, may also be anemic, we discussed trying to tease out something that might be reversible. Did call [employer] from home, asked for urgent referral, may still be up to 24 hours. Past Medical History: Squamous cell carcinoma of the vagina, treated with surgery/chemoradiation 2007, early stage bladder cancer/papillary urethral carcinoma, low-grade status post resection and intravesical treatment in 2013; COPD, emphysema, C. difficile, chronic diarrhea, depression, anxiety, osteoarthritis, fatigue, chronic back pain. Social History - Living Situation Living arrangement: At home Living Situation: With spouse/s.o. 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 She lives with her significant other, she does not have any children. She has 2 sisters, her sister Sirisha who lives in [place] is available to come up if needs help, her other sister from [place] was unable to come, is hoping she will be here this weekend as she is supposed to be providing some caregiving support. Medications/Allergies - Medications Home Medications: Ambulatory Orders Medication Instructions Recorded Confirmed Methadone HCl 10 mg PO TID 04/27/17 01/29/21 Prochlorperazine Maleate 10 mg PO Q6HR PRN #30 tab 01/08/21 01/29/21 [Compazine] Naloxone HCl [Narcan] 1 spray ABDULLAHI ONCE 01/22/21 01/29/21 Famotidine [Pepcid] 20 mg PO DAILY #30 tablet 01/23/21 01/29/21 Ondansetron Odt [Zofran] 4 mg TL Q6H PRN #20 tablet MDD use 01/23/21 01/29/21 sparingly after compazine Senna [Senokot] 1 - 2 tab PO BID PRN 01/24/21 01/29/21 polyethylene glycoL 3350 [Miralax] 17 gm PO DAILY MDD bid 01/24/21 01/29/21 oxyCODONE [Roxicodone] 5 mg PO Q4HR PRN 01/29/21 01/29/21 - Allergies Allergies/Adverse Reactions: Allergies Allergy/AdvReac Type Severity Reaction Status Date / Time No Known Drug Allergies Allergy Verified 01/08/21 09:56 Review of Systems - Constitutional Constitutional: reports: Fatigue (worsening), Poor appetite, Weight loss (89; baseline 125). denies: Fever, Chills - Eyes Eyes: reports: Blurred vision, Vision loss - Ears, Nose & Throat Ears, Nose & Throat: reports: Dry mouth - Cardiovascular Cardiovascular: reports: Edema (new and worsening), Lightheadedness, Exertional dyspnea, Decr. exercise tolerance - Respiratory Respiratory: reports: Cough, Sputum production (beige thick phegm), SOB at rest, SOB with exertion, Other (hypoxic over last several days in 80"s). denies: Wheezing - Gastrointestinal Gastrointestinal: reports: Abdominal pain, Bloating, Poor appetite, Early satiety. denies: Constipation (new bowel program effective), Rectal bleeding, Nausea, Reflux/heartburn - Genitourinary Genitourinary: reports: Frequency - Musculoskeletal Musculoskeletal: reports: Back pain, Muscle aches, Stiffness, Limited range of motion, Muscle weakness - Integumentary Integumentary: reports: Dryness - Neurological Neurological: reports: General weakness, Memory problems (reports mild intermittent confusion last few days), Abnormal gait - Psychiatric Psychiatric: reports: Depression, Anxiety - All Other Systems All Other Systems: reports: Reviewed and negative Physical Exam - Vital Signs Temperature: 98.1 C Pulse Rate: 114 (at rest 130 with amb) Respiratory Rate: 18 O2 Saturation: 83 (at rest; 81 with amb 15 ft) Blood Pressure: 112/54 - Physical Exam General Appearance: positive: No acute distress, Cachetic Eyes Bilateral: positive: Normal inspection, Other (periorbital edema) ENT: negative: Oral lesions Neck: positive: Trachea midline Cardiovascular: positive: Tachycardia Respiratory: positive: Diminished throughout. negative: Chest non-tender (c/o chest pressure for several weeks since dx), No respiratory distress (respiratory effort with conversation/amblation), Wheezes, Rales, Rhonchi Abdomen: positive: Abnml bowel sounds, Tenderness Skin: positive: Dryness, Other (sallow) Extremities: positive: Pedal edema (pitting lower extremity edema up to knees; new for 3-4 days; elevating but not improving) Neurologic/Psychiatric: positive: Oriented x3, Mood/affect nml, Weakness, Flat affect, Other Palliative Care - POLST Patient has POLST: No Pain: Pain improved, Location (Patient's baseline background abdominal pain, is currently controlled, patient's right upper quadrant pain, is improved, has only needed intermittent ibuprofen extra, she does so have ongoing pain with deep inspiration, and chest heaviness since original diagnosis. She reports this has improved wit), Comment (Currently on methadone 10 mg 3 times daily, patient did take 15 mg this a.m., reminded she needed to follow instructions and reinforced safety issues regarding methadone.) Tiredness/Fatigue: Moderate (4-6) Drowsiness/Sedation: Moderate (4-6) Nausea: Mild (1-3) Anorexia: Mild (1-3) (improved; improved intake) Dyspnea: Moderate (4-6) (denies distress despite hypoxia) Depression: Moderate (4-6) Anxiety: Moderate (4-6) Feelings of wellbeing/Perceived Quality of Life: Fair, Worsening Sleep: Variable sleep pattern Constipation: Yes, Opoid induced, Managed Performance Status: Patient quite sedentary, spending most of time on the couch with her feet elevated. She is able to ambulate short distances, and manage bathing at this point in time. She does have a worsening activity tolerance. Is hoping oxygen will help with this. - Palliative Care Discussion: Patient is very reluctant to access ED and/or hospitalization. She feels quite anxious regarding her cancer, is hoping for the best, but is somewhat realistic about her current situation. She is not quite completed her healthcare directive, but had picked Sirisha [phone] is her DPOA. We did [place] around to CODE STATUS again, she feels like she would want to be a DN AR, and not be put on ventilator, but she would accept at this point high chance to fight her cancer, and would be hospitalized. We did discuss this is somewhat of a juxtaposition and what she is currently doing, which is avoiding follow-up for her worsening symptoms, she did agree if she continues to deteriorate, she will go to the ED. She still has a pending appointment with oncology, to talk further about her current treatment plan and prognosis. Impression and Recommendations - Palliative Care Impression: This is a 56-year-old woman with squamous cell carcinoma of the lung, with liver mets, mediastinal/hilar lymphadenopathy. She is currently with better pain control, though now presents with hypoxia, lower extremity edema, poor activity tolerance. Unclear underlying etiology, certainly could be multifactorial, patient declining ED evaluation, is willing to move forward though with outpatient work-up. Palliative care continue provide support for pain and symptom management, and coordination of care. Recommendations/Counseling Done: 1. Hypoxia. This is most likely multifactorial, concern regarding underlying acute etiology. Call to [facility], will send order for oxygen, most likely would be able to deliver within 24 hours. Arrangements made for chest x-ray, as well as labs, to rule out infection, fluid overload, or reversible conditions. Counseled regarding further acute decline or deterioration, patient is in agreement to go to emergency room. She has called her significant other Jd to bring her in for testing. 2. Pain of neoplastic origin. Patient's pain is multifactorial, she has underlying chronic pain syndrome, as well as pain attributed to liver mets, and chest heaviness/pain from tumor burden. She reports her pain is better controlled on the methadone 10 mg 3 times daily, patient did take 15 mg this AM. Counseled regarding safety of methadone, needs to take prescribed dose at regular times. Patient most likely should not be using ibuprofen at this point in time, will order oxycodone 5 mg 1 tab every 4 hours, recommended to use spa ringly given her opioid load. New prescriptions ordered. 3. Constipation. This is opioid induced, patient now taking her MiraLAX on a regular basis as well as senna is available. Patient's bowels moved to day, reports it is doing better has relieved some of her abdominal pain and discomfort. 4. Weight loss. Patient is doing better with food and fluid intake, trying to use shakes, unclear if making progress. 5. Lower extremity edema. This is a new symptom for her, will wait and follow- up on chest x-ray as well as labs prior to ordering any diuretics. Patient reports had developed about 2 or 3 days ago. Counseled for elevating feet at this point in time. 6. Advanced care planning. Patient needs her DPOA signed, has selected her Sister Sirisha as first choice, her second choice second sister and Jd. She did get 1 witness, she had multiple questions particular around CODE STATUS, at this point in time she is leaning towards DN AR. We discussed prior to finishing a form, i.e. MATT would recommend that we continue this conversation when her Sister Sirisha is available, in agreement. 60 minutes with greater than 50% of this done in counseling regarding recommendations for evaluation of hypoxia, ED visit, outpatient work-up, pain and symptom management, and anticipatory guidance.
--- OUTSIDE RECORDS SUMMARY | 2021-02-05 23:02 | EXTERNAL MEDICAL SUMMARY RPT | Continuity of Care Document ---
:1965 Demographics Phone Unavailable Preferred Language Unknown Marital Status Unknown Adventist Affiliation Unknown Race Unknown Ethnic Group Unknown Author Organization [place] Address [address] [phone] Phone Social History date description facility [phone]
== END 2021-01-29 14:16 | disposition home or self-care (01) ==
LOC: PC 14:15
PROVIDERS: ATTEND Nurse Practitioner Adult Health
DX: Z51.5 Encounter for palliative care (principal); R09.02 Hypoxemia; G89.3 Neoplasm related pain (acute) (chronic); C34.90 Malignant neoplasm of unspecified part of unspecified bronchus or lung; C77.1 Secondary and unspecified malignant neoplasm of intrathoracic lymph nodes; C78.7 Secondary malignant neoplasm of liver and intrahepatic bile duct; K59.03 Drug induced constipation; T40.2X5A Adverse effect of other opioids, initial encounter; R63.4 Abnormal weight loss; R60.0 Localized edema; J43.9 Emphysema, unspecified; Z79.899 Other long term (current) drug therapy
CPT/HCPCS: 99350

== ENCOUNTER 2021-01-29 17:43 | Outpatient (CLI) | payer MEDICARE ==
[2021-01-29 18:10] LABS: BASOPHILS # (AUTO) 0.1 10^3/uL (0.0-0.1); BASOPHILS % (AUTO) 0.9 %; EOSINOPHILS # (AUTO) 0.1 10^3/uL (0.0-0.7); HCT - HEMATOCRIT 28.3 % (37.0-47.0); LYMPHOCYTES # (AUTO) 0.8 10^3/uL (1.5-3.5); LYMPHOCYTES % (AUTO) 7.2 %; MEAN CORPUSCULAR HEMOGLOBIN 25.4 pg (27.0-31.0); MEAN CORPUSCULAR HGB CONC 31.8 g/dL (32.0-36.0); MEAN CORPUSCULAR VOLUME 79.7 fL (81.0-99.0); MEAN PLATELET VOLUME 8.5 fL (7.9-10.8); MONOCYTES % (AUTO) 9.3 %; NEUTROPHILS # (AUTO) 8.4 10^3/uL (1.5-6.6); NEUTROPHILS % (AUTO) 80.5 %; PLT - PLATELET COUNT 348 10^3/uL (130-450); RED BLOOD COUNT 3.55 10^6/uL (4.20-5.40); RED CELL DISTRIBUTION WIDTH 15.6 % (12.0-15.0); WHITE BLOOD COUNT 10.5 x10^3/uL (4.8-10.8)
[2021-01-29 18:22] LABS: ALBUMIN 2.4 g/dL (3.2-5.5); ALBUMIN/GLOBULIN RATIO 0.6 (1.0-2.2); BILIRUBIN,TOTAL 0.4 mg/dL (0.2-1.0); CALCIUM 10.2 mg/dL (8.5-10.3); CREATININE 0.5 mg/dL (0.4-1.0); POTASSIUM 3.5 mmol/L (3.5-5.0); TOTAL PROTEIN 6.2 g/dL (6.7-8.2)
== END 2021-01-29 17:44 | disposition home or self-care (01) ==
LOC: LAB 17:43
PROVIDERS: ATTEND Nurse Practitioner Adult Health
DX: C34.90 Malignant neoplasm of unspecified part of unspecified bronchus or lung (principal); Z79.899 Other long term (current) drug therapy
CPT/HCPCS: 36415; 80053; 85025

== ENCOUNTER 2021-02-08 11:00 | Outpatient (CLI) | payer MEDICARE ==
--- NOTE | 2021-02-08 13:15 | CONSULTATION NOTE ---
Palliative Care Follow Up - Referral Referring Provider: Dr. 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 She is to continue palliative treatment of carboplatinum/Taxol and pembrolizumab, with second cycle to be received on Thursday. She unfortunately did poorly with her first treatment, landed in the emergency room with dehydration. She feels more prepared for her next round. Palliative care is seeing her for her pain management, have increased her methadone to 10 mg 3 times daily, with decreased discomfort, most of her pain is identified in her lower rib right quadrant and radiating into her lower back. She has increased pain with standing and walking. She does have oxycodone 5 mg tabs for breakthrough, she is using 2-3 in 24 hours with relief. Her other significant symptom was on 01/29 patient was found to be hypoxic, with her O2 sats at 83% at rest, with ambulation dropped to 81%. She also has had sustained tachycardia, which she presents today with as well. She has been using oxygen at home, at 2 L, she reports her oxygen has improved slowly, with her oxygen about 92% at rest, but decreases to 80s with any kind of activity or prolonged ambulation. Unfortunately she did send her tanks back, she did not want to be "settled with them". She does find it less distressing and and improved breathlessness with the use of the oxygen. She has been asked to get a chest x-ray secondary to her significant lower extremity edema when I saw her on 01/29 with hypoxia, concern regarding fluid overload/CHF or infectious process. Patient unfortunately did not follow through with this, today does not present with distress, and would most likely not tolerate diuretics. Patient remains slightly overwhelmed by her diagnosis, as well as her declining quality of life. She does have support from her lifetime partner of 20 years Agustin, who is helping her with meals. Her sister Sirisha is coming to help today, is providing support, her other sister Polly is supposed to be coming from [place] to provide some practical support. We did discuss this would be a good time when she gets here, to further have conversations regarding completing her advance care planning, and her wishes moving forward. She is in agreement with this. 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 difficile, chronic diarrhea, depression, anxiety, osteoarthritis, fatigue, chronic back pain Social History - Living Situation Living arrangement: At home Living Situation: With spouse/s.o. Support System: Patient lives with her significant other Jd of 20 years, they are not . She does understand she needs to complete some of her advanced care planning and legal papers. She has no children, she has 2 sisters, her Sister Sirisha who she would designate as her DPOA comes from [place] and is available to come up if needs help, her other sister Polly from [place] is supposed to be showing up today some time. She is to assist with caregiving. Patient has been on long- term disability after her first cancer, and ongoing chronic pain issues. Medications/Allergies - Medications Home Medications: Ambulatory Orders Medication Instructions Recorded Confirmed Methadone HCl 10 mg PO TID 04/27/17 02/08/21 Prochlorperazine Maleate 10 mg PO Q6HR PRN #30 tab 01/08/21 01/29/21 [Compazine] Naloxone HCl [Narcan] 1 spray ABDULLAHI ONCE 01/22/21 02/08/21 Famotidine [Pepcid] 20 mg PO DAILY #30 tablet 01/23/21 02/08/21 Ondansetron Odt [Zofran] 4 mg TL Q6H PRN #20 tablet MDD use 01/23/21 02/08/21 sparingly after compazine Senna [Senokot] 1 - 2 tab PO BID PRN 01/24/21 02/08/21 polyethylene glycoL 3350 [Miralax] 17 gm PO DAILY MDD bid 01/24/21 02/08/21 oxyCODONE [Roxicodone] 5 mg PO Q4HR PRN 01/29/21 02/08/21 - Allergies Allergies/Adverse Reactions: Allergies Allergy/AdvReac Type Severity Reaction Status Date / Time No Known Drug Allergies Allergy Verified 02/08/21 10:07 Review of Systems - Constitutional Constitutional: reports: Fatigue (worsening), Poor appetite, Weight loss (88 down one pound this week; baseline 125). denies: Fever, Chills - Eyes Eyes: reports: Blurred vision, Vision loss - Ears, Nose & Throat Ears, Nose & Throat: reports: Dry mouth - Cardiovascular Cardiovascular: reports: Edema (improved from last visit but present), Lightheadedness, Exertional dyspnea, Decr. exercise tolerance - Respiratory Respiratory: reports: Cough, Sputum production (beige thick phegm), SOB at rest, SOB with exertion, Other (hypoxic improved using oxygen at home and too sleep). denies: Wheezing - Gastrointestinal Gastrointestinal: reports: Abdominal pain, Bloating, Poor appetite, Early satiety. denies: Constipation (new bowel program effective), Rectal bleeding, Nausea, Reflux/heartburn - Genitourinary Genitourinary: reports: Frequency - Musculoskeletal Musculoskeletal: reports: Back pain, Muscle aches, Stiffness, Limited range of motion, Muscle weakness - Integumentary Integumentary: reports: Dryness, Hair changes (alopeica) - Neurological Neurological: reports: General weakness, Abnormal gait - Psychiatric Psychiatric: reports: Depression, Anxiety - Hematologic/Lymphatic Hematologic/Lymph: reports: Anemia (9.8) - All Other Systems All Other Systems: reports: Reviewed and negative Physical Exam - Vital Signs Temperature: 36.4 C Pulse Rate: 120 Respiratory Rate: 18 O2 Saturation: 97 (on room air at rest) Blood Pressure: 121/76 - Physical Exam General Appearance: positive: No acute distress, Cachetic Eyes Bilateral: positive: Normal inspection, Other (periorbital edema) ENT: negative: Oral lesions Neck: positive: Trachea midline Cardiovascular: positive: Tachycardia Respiratory: positive: Diminished throughout. negative: Chest non-tender (c/o chest pressure for several weeks since dx), No respiratory distress (respiratory effort with conversation/amblation), Wheezes, Rales, Rhonchi Abdomen: positive: Abnml bowel sounds, Tenderness Skin: positive: Dryness, Other (sallow) Extremities: positive: Pedal edema (pitting lower extremity edema improved from last visit 1-2+; up to mid calf) Neurologic/Psychiatric: positive: Oriented x3, Mood/affect nml, Weakness, Flat affect Palliative Care - POLST Patient has POLST: No Pain: Pain improved, Location (SEE HPI) Tiredness/Fatigue: Moderate (4-6) Drowsiness/Sedation: Mild (1-3) Nausea: None Anorexia: Moderate (4-6), Weight loss Dyspnea: Severe (7-10) Depression: Moderate (4-6) Anxiety: Moderate (4-6) Feelings of wellbeing/Perceived Quality of Life: Poor, Worsening Sleep: Sleeps well Constipation: No Performance Status: Patient is limited by her pain and dyspnea, she is spending most of her time at home and on the couch. She is able to manage her ADLs, though is finding everything a little bit more difficult as far as energy.I would put her at a PPS of 60% - Palliative Care Discussion: Patient admits to still being fairly overwhelmed, does admit her quality of life is declining. She very much wants to get her end-of-life affairs in order, but also does not want to acknowledge just how quickly things are changing. We agreed we are all hoping for the best, but best to prepare for otherwise, particularly around advance care planning since she is single and not , she does want her sister to be her DPOA, and has nothing in place at this point in time. She is feeling somewhat fatalistic, we did discuss though certainly focusing on things that might bring her better quality of life, has spending time with friends and family. Counseling provided to normalize feelings of grief and loss. Results - Lab Results Lab results reviewed: Yes Impression and Recommendations - Palliative Care Impression: This is a 56-year-old woman with squamous cell carcinoma of the lung, with liver mets, mediastinal/hilar lymphadenopathy having completed 1 cycle of chemotherapy. She does present with pain better controlled, has found oxygen supportive, hypoxia has improved somewhat. She also has lower extremity edema which has improved some, poor activity tolerance, and overall high symptom burden. Palliative care continues to provide support for patient and symptom management and coordination of care as well as advanced care planning. Recommendations/Counseling Done: 1. Pain of neoplastic origin. Patient currently being managed on methadone 10 mg 3 times daily. She does feel like this is a "sweet spot" though she still continues with fairly high levels of pain overall, she does have acute on chronic pain related to her neoplastic process. Patient does have oxycodone 5 mg for breakthrough pain, has been using it only 2-3 times in 24 hours. 2. Hypoxia. This is multifactorial, patient is doing somewhat better, is using oxygen at home with relief. Reports with any activity she becomes hypoxic, she had sent back to tanks. Instructed to call and get these again, we can look at portable concentrator at the point she has been using it more consistently. Her breath sounds are diminished throughout, will defer chest x-ray for now, but if worsens, she is to contact me to be able to follow-up. 3. Anorexia. Patient has lost another pound, she reports she is working very hard on getting food and fluids. Instructed to add "more shakes" 2-3 times a day and pace of food today. She does have a pending appointment with dietitian. Discussed possibly adding mirtazapine for appetite as well as addressing mood and sleep, she will consider. 4. Lower extremity edema. This is a new symptom for her, unfortunately did not follow-up on chest x-ray, has improved. It is still pitting 1-2+ up to mid calf. She has been instructed to wear support stockings and elevate. 5. Advanced care planning. Patient is identified to [facility] as her Sister Sirisha as first choice and second choice Jd. She would like to complete advanced care planning, we discussed both sisters will be together in the next week or 2, we can plan a visit accordingly. Patient is to get treatment on Thursday, will call if any problems.Plan for next visit either end of next week or following week for family conference regarding goals of care 45 minutes, counseling regarding symptoms, medication management, pain management, safety issues, review of records, coordination of care with oncology, review of labs.
== END 2021-02-08 11:01 | disposition home or self-care (01) ==
LOC: PC 11:00
PROVIDERS: ATTEND Nurse Practitioner Adult Health
DX: Z51.5 Encounter for palliative care (principal); G89.3 Neoplasm related pain (acute) (chronic); R09.02 Hypoxemia; R63.0 Anorexia; R60.0 Localized edema; C34.90 Malignant neoplasm of unspecified part of unspecified bronchus or lung; C78.7 Secondary malignant neoplasm of liver and intrahepatic bile duct; C78.1 Secondary malignant neoplasm of mediastinum; J43.9 Emphysema, unspecified; K52.9 Noninfective gastroenteritis and colitis, unspecified; F32.9 Major depressive disorder, single episode, unspecified; F41.9 Anxiety disorder, unspecified; R53.83 Other fatigue; M54.9 Dorsalgia, unspecified; M19.90 Unspecified osteoarthritis, unspecified site; Z79.899 Other long term (current) drug therapy; H54.7 Unspecified visual loss; R35.0 Frequency of micturition; Z79.891 Long term (current) use of opiate analgesic; Z85.44 Personal history of malignant neoplasm of other female genital organs; Z85.51 Personal history of malignant neoplasm of bladder; Z85.59 Personal history of malignant neoplasm of other urinary tract organ
CPT/HCPCS: 99214

== ENCOUNTER 2021-02-19 12:00 | Outpatient (CLI) | payer MEDICARE ==
--- NOTE | 2021-02-19 13:31 | CONSULTATION NOTE ---
Palliative Care Follow Up - Referral Referring Provider: Dr. Jorge Soto Time of Visit: 10-14 Referral setting: Home Referral Reason: Pain of neoplastic origin/anorexia/Met Lung CA - Information Sources Records reviewed: Previous records reviewed History/Review of Systems obtained from: Patient, Family (s/o Jd) Exam limitations: No limitations - History of Present Illness Update Brief HPI Update: This is a 56-year-old woman with metastatic squamous cell carcinoma of the left lower lobe, liver mets, and significant hilar mediastinal lymph node involvement. She received her second treatment of carboplatinum/paclitaxel and pembrolizumab and did very poorly again. Her family was very concerned, wanted her to go to the ED, reports she is having increased difficulty with breathing, has not been eating or drinking for over a week is just coming out of that, and was severely tachycardic around 140. They had been advised several times to take her to the emergency room but patient had been quite resistant, fearful of findings and dying in the hospital. Patient today presents with worsening weight loss, last documented weight was 86 pounds, she looks more like she is lost another for 5 pounds very thin and cachectic. She has alopecia, she is not in any kind of respiratory distress, breath sounds are diminished throughout tickly left lower lobe. She has no cough. Her pain is a band around her mid thoracic area, she is currently on methadone 10 mg 3 times daily, with oxycodone 5 mg occasional 10 every 4, with only moderate control. She is using marijuana as well as a supplement. She is finally starting to eat and drink, she is feeling somewhat better today. Her significant other Jd is home. She has made a decision to just focus on the time she has, to stop chemotherapy, and is hoping to have a period of time where she feels better. 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 She also received intravesical treatment in 2013. Longstanding COPD/emphysema, history of C. difficile, chronic diarrhea, depression, anxiety, Osteoarthritis, fatigue, chronic back pain Social History - Living Situation Living arrangement: At home Living Situation: With spouse/s.o. Support System: She lives with her significant other Jd of 20 years, they are not she has no children. She has 2 sisters, one in [place] who is supposedly coming to help, as well as a sister from [place] who comes up and available if needed. Jd is taking time off work and planning to be his caregiver. Patient has been on long-term disability after her first cancer and ongoing chronic pain needs. She has been quite resistant to following through regarding her insurance issues, has been in touch with the social workers, has just felt quite poorly and and able to follow through. Medications/Allergies - Medications Home Medications: Ambulatory Orders Medication Instructions Recorded Confirmed Methadone HCl 10 mg PO TID 04/27/17 02/19/21 Prochlorperazine Maleate 10 mg PO Q6HR PRN #30 tab 01/08/21 02/19/21 [Compazine] Naloxone HCl [Narcan] 1 spray ABDULLAHI ONCE 01/22/21 02/19/21 Famotidine [Pepcid] 20 mg PO DAILY #30 tablet 01/23/21 02/19/21 Ondansetron Odt [Zofran] 4 mg TL Q6H PRN #20 tablet MDD use 01/23/21 02/19/21 sparingly after compazine Senna [Senokot] 1 - 2 tab PO BID PRN 01/24/21 02/19/21 polyethylene glycoL 3350 [Miralax] 17 gm PO DAILY MDD bid 01/24/21 02/19/21 oxyCODONE [Roxicodone] 5 - 10 mg PO Q3HR PRN 01/29/21 02/19/21 dexAMETHasone [Decadron] 2 mg PO DAILY 02/19/21 02/19/21 - Allergies Allergies/Adverse Reactions: Allergies Allergy/AdvReac Type Severity Reaction Status Date / Time No Known Drug Allergies Allergy Verified 02/08/21 10:07 Review of Systems - Constitutional Constitutional: reports: Fatigue (persistent), Poor appetite, Weight loss (most likely near 80 pouns). denies: Fever, Chills - Eyes Eyes: reports: Blurred vision, Vision loss - Ears, Nose & Throat Ears, Nose & Throat: reports: Dry mouth - Cardiovascular Cardiovascular: reports: Edema (improved but present up to mid calf), Lightheadedness, Exertional dyspnea, Decr. 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 denies: Wheezing - Gastrointestinal Gastrointestinal: reports: Abdominal pain, Bloating, Poor appetite, Early satiety. denies: Constipation (new bowel program effective), Rectal bleeding, Nausea, Reflux/heartburn - Genitourinary Genitourinary: reports: Frequency - Musculoskeletal Musculoskeletal: reports: Back pain, Muscle aches, Stiffness, Limited range of motion, Muscle weakness - Integumentary Integumentary: reports: Dryness, Hair changes (alopeica) - Neurological Neurological: reports: General weakness, Abnormal gait - Psychiatric Psychiatric: reports: Depression, Anxiety - Hematologic/Lymphatic Hematologic/Lymph: reports: Anemia (9.8) - All Other Systems All Other Systems: reports: Reviewed and negative Physical Exam - Vital Signs Temperature: 97.7 C Pulse Rate: 120 Respiratory Rate: 18 O2 Saturation: 98 (3 liters at rest) Blood Pressure: 92/64 - Physical Exam General Appearance: positive: No acute distress, Alert, Cachetic Eyes Bilateral: positive: Normal inspection, Other (periorbital edema) ENT: negative: Oral lesions Neck: positive: Trachea midline Cardiovascular: positive: Tachycardia Respiratory: positive: Diminished throughout. negative: Chest non-tender (c/o chest pressure for several weeks since dx), No respiratory distress (respiratory effort with conversation/amblation), Wheezes, Rales, Rhonchi Abdomen: positive: Abnml bowel sounds, Tenderness Skin: positive: Dryness, Other (sallow) Extremities: positive: Pedal edema (pitting lower extremity edema improved from last visit 1-2+; up to mid calf) Neurologic/Psychiatric: positive: Oriented x3, Mood/affect nml, Weakness, Flat affect Palliative Care - POLST Patient has POLST: Yes POLST Status: DNR, Comfort Measures Pain: Pain worsening, Location (band around mid thoracic/lumbar area; chest; legs), Comment (Currently on methadone 10 mg 3 times daily, could use higher doses of oxycodone, but has been compliant with 5 mg every 4 hours.) Tiredness/Fatigue: Severe (7-10) Drowsiness/Sedation: Severe (7-10) (getting nights and days turned around) Nausea: None Anorexia: Moderate (4-6) (eating starting last night) Dyspnea: Moderate (4-6), Severe (7-10) (with activity) Depression: Moderate (4-6) Anxiety: Severe (7-10) Feelings of wellbeing/Perceived Quality of Life: Poor, Worsening Sleep: Variable sleep pattern Constipation: Yes, Opoid induced, Unmanaged Performance Status: Patient is quite weak, she is spending most of her time on the couch, can ambulate a few steps but with increased dyspnea and respiratory distress. I would put her at a PPS of 40% - Palliative Care Discussion: Patient had not returned any calls last week, I did hear from her as though Jd, that they were managing as well as her sister who is quite concerned about patient's rapid decline. They had all been encouraged to take her to the ED, but patient was quite resistant. We did review this, she feels like she is ready to just not continue with chemotherapy. She is afraid if she does it 1 more time is going to "kill her". She does look quite cachectic, exhausted, and having declining functional status. She is very much at peace with her decision, does not put herself through that again, Her significant other Jd and sister is her supportive of her. She had wanted to at least give it a try, was hoping she could last 3 out of the 3 treatments, but at this point in time is still not willing to consider hospice. Counseling provided regarding the hospice continuum, particularly in the context of though she is going to feel somewhat better for short period of time, support is can be needed for her caregiving team. She will can consider, counseling provided regarding services provided. Did complete POLST with patient's goals to focus on comfort and spending time with family as well as to have a at home. We did madhavi DN AR/DNI and comfort focused treatment as well as determine the use of antibiotics with comfort as the goal and no medically assisted nutrition. Jd is her significant other, is very good caregiver per patient, she feels very comfortable and safe with him. He has taken time off work to be with her through this time. He has taking care of his mother several years ago on hospice, so is somewhat comfortable as far as what is coming. Counseling prov ided regarding what to do if patient were to have an end-of-life event, as far as calling 911 to get her pronounced and meeting the paramedics at the door with the POLST I will reach out to oncology and let them know as far as counseling appointments, did reach out also to hospice so transition can be as soon as patient decides to move forward. Impression and Recommendations - Palliative Care Impression: This is a 56-year-old woman with squamous cell carcinoma of the lung, with liver mets, mediastinal/hilar lymphadenopathy, did poorly with second cycle of chemotherapy. She continues to deteriorate with weight loss, functional decline, worsening breathlessness and tachycardia, patient this point time wants to transition to focus on comfort only. She does not want to continue with any further chemotherapy. Palliative care will continue to provide support for patient with symptom management coordination of care until transitions to hospice. Recommendations/Counseling Done: 1. Pain of neoplastic origin. This is multifactorial, patient is on methadone 3 times a day, has been on this long-term, with a recent increase for worsening pain. She does find the oxycodone helpful, but does not last very long, will increase her oxycodone 5 mg to 10 mg every 3 hours. She verbalizes halley vilchis. 2. Dyspnea. This is multifactorial, patient is with significant tachycardia with any kind of activity. She has been using oxygen at home with relief, instructed to wear continuously. Given patient's goals, spoke with Jd about following up with [facility] to get some portable tank so can go out for drives and get out of the home. 3. Anorexia. Patient continues to have weight loss and appears quite cachectic. She is starting to eat and drink, she is doing fairly well with her fluids. Though she is hypotensive. We will add dexamethasone 2 mg daily, 4. Lower extremity edema. This is remained persistent, suspect more related to her low proteins and disease process. Denies any discomfort with this. She has been instructed to elevate and wear support stockings. 5. Metastatic lung cancer. Patient this point time does not want to continue with treatment, will reach out to oncology and cancel appointments. Patient like to focus on comfort and what time she has left with her family. Counseling provided regarding the benefits and support for hospice, recommended transitioning sooner than later. Patient would still like some time to think about this. 6. Advanced care planning. POLST is completed, DPOA was collected. Jd who is present with her, is planning to take time off and continue to provide support. She does have several things she needs to get in place before her end-of-life, she is working on that this week now she has little bit more energy. She is hoping her sisters will come be part of her care team, again recommended hospice transition, she will let me know when she is ready. Otherwise palliative care will continue to support for symptom management.
== END 2021-02-19 12:01 | disposition home or self-care (01) ==
LOC: PC 12:00
PROVIDERS: ATTEND Nurse Practitioner Adult Health
DX: Z51.5 Encounter for palliative care (principal); C34.32 Malignant neoplasm of lower lobe, left bronchus or lung; G89.3 Neoplasm related pain (acute) (chronic); C78.7 Secondary malignant neoplasm of liver and intrahepatic bile duct; C77.1 Secondary and unspecified malignant neoplasm of intrathoracic lymph nodes; R63.0 Anorexia; R60.0 Localized edema; R06.00 Dyspnea, unspecified; Z79.891 Long term (current) use of opiate analgesic; Z99.81 Dependence on supplemental oxygen; Z79.899 Other long term (current) drug therapy; Z66 Do not resuscitate
CPT/HCPCS: 99350

== ENCOUNTER 2021-02-26 14:15 | Outpatient (CLI) | payer MEDICARE ==
--- NOTE | 2021-02-26 16:53 | CONSULTATION NOTE ---
Palliative Care Follow Up - Referral Referring Provider: Dr. 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 She has received 2 treatments of carboplatinum/paclitaxel and Pembrolizumab and did very poorly after both, with her last treatment she almost felt it was leading her to an end-of-life event. She decided given her ongoing weight loss, anorexia, worsening pain that she would prefer to focus on quality of life, getting her affairs in order, and spending time with family. Patient has had increased trouble with secretions, they did start some Mucinex yestserday with thinning, reports has been easier to move her secretions. She still has significant bilateral pleuritic type pain, worsening with coughing. She also has some mild abdominal and right upper quadrant pain as well as her chronic low back pain. Had started on some dexamethasone 2 mg, she reports she is eating much better, is doing well with her fluids, and feeling better overall, but this just started over the last 24 to 48 hours. Her sister Sirisha is with her, her significant other Jd was able to go to work today. She is hoping she will continue to have some improvement, before she starts to decline for end-of-life. She reports her pain is fairly well controlled on her methadone 10 mg 3 times daily, she is using about 6 tabs of oxycodone 5 mg in 24 hours. She has been sleeping better. She still gets significantly short of breath. She is using marijuana also to supplement her anxiety and pain management. She remains quite anxious regarding end of life, she is trying to get her affairs in order. Sirisha is going to help her with her paperwork, and we did have a long discussion regarding my recommendation to transition to hospice. Sirisha shared that she take care of her father with hospice support over several months, had found it quite reassuring to be able to call, and to be able to not have to go to the hospital and get support if things get more difficult. Patient aware she can make this decision at any time, she will let me know, otherwise we will see her weekly on palliative care. My main concern is patient has no 24-hour care or coverage, and has been quite resistant when she has been in trouble to go into the ED. 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 Longstanding COPD/emphysema, history of C. difficile, chronic diarrhea, depression, anxiety, osteoarthritis, fatigue, chronic back pain, longstanding pain on methadone. Social History - Living Situation Living arrangement: At home Living Situation: With spouse/s.o. Support System: Patient lives with her significant other Jd of 20 years, they are not she has no children. Her sister from [place], comes up as needed, she did ask her to come up yesterday. Jd has been taking time off work, was able to get to work today, Sirisha is planning to stay for the week. Jd is planning to be her caregiver. 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.She has another sister, who is in [place], has not come over yet, she is hoping she will come to say goodbye Medications/Allergies - Medications Home Medications: Ambulatory Orders Medication Instructions Recorded Confirmed Methadone HCl 10 mg PO TID 04/27/17 02/26/21 Prochlorperazine Maleate 10 mg PO Q6HR PRN #30 tab 01/08/21 02/26/21 [Compazine] Naloxone HCl [Narcan] 1 spray ABDULLAHI ONCE 01/22/21 02/26/21 Famotidine [Pepcid] 20 mg PO DAILY #30 tablet 01/23/21 02/26/21 Ondansetron Odt [Zofran] 4 mg TL Q6H PRN #20 tablet MDD use 01/23/21 02/26/21 sparingly after compazine Senna [Senokot] 1 - 2 tab PO BID PRN 01/24/21 02/26/21 polyethylene glycoL 3350 [Miralax] 17 gm PO DAILY MDD bid 01/24/21 02/26/21 oxyCODONE [Roxicodone] 5 - 10 mg PO Q3HR PRN 01/29/21 02/26/21 dexAMETHasone [Decadron] 2 mg PO DAILY 02/19/21 02/26/21 guaiFENesin [Mucinex] 400 mg PO Q4HR PRN 02/26/21 02/26/21 - Allergies Allergies/Adverse Reactions: Allergies Allergy/AdvReac Type Severity Reaction Status Date / Time No Known Drug Allergies Allergy Verified 02/08/21 10:07 Review of Systems - Constitutional Constitutional: reports: Fatigue (persistent), Weight stable (87 though cachetic in appearance). denies: Fever, Chills, Poor appetite (improved; eating small portions but HUNGRY) - Eyes Eyes: reports: Blurred vision, Vision loss - Ears, Nose & Throat Ears, Nose & Throat: reports: Dry mouth - Cardiovascular Cardiovascular: reports: Edema (improved but present up to mid calf), Lightheadedness, Exertional dyspnea, Decr. 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 denies: Wheezing - Gastrointestinal Gastrointestinal: reports: Abdominal pain, Bloating, Poor appetite, Early satiety. denies: Constipation (new bowel program effective), Rectal bleeding, Nausea, Reflux/heartburn - Genitourinary Genitourinary: reports: Frequency - Musculoskeletal Musculoskeletal: reports: Back pain, Muscle aches, Stiffness, Limited range of motion, Muscle weakness - Integumentary Integumentary: reports: Dryness, Hair changes (alopeica) - Neurological Neurological: reports: General weakness, Abnormal gait - Psychiatric Psychiatric: reports: Depression, Anxiety - Hematologic/Lymphatic Hematologic/Lymph: reports: Anemia (9.8) - All Other Systems All Other Systems: reports: Reviewed and negative Physical Exam - Vital Signs Temperature: 97.5 C Pulse Rate: 119 Respiratory Rate: 20 O2 Saturation: 91 (Ra @ rest; 95 on 2 liters) Blood Pressure: 122/72 - Physical Exam General Appearance: positive: No acute distress, Alert, Cachetic Eyes Bilateral: positive: Normal inspection, Other (periorbital edema) ENT: negative: Oral lesions Neck: positive: Trachea midline Cardiovascular: positive: Tachycardia Respiratory: positive: Diminished throughout, Wheezes (LLL). negative: Chest non-tender (c/o chest pressure for several weeks since dx), No respiratory distress (respiratory effort with conversation/amblation), Rales, Rhonchi Abdomen: positive: Abnml bowel sounds, Tenderness Skin: positive: Dryness, Other (sallow) Extremities: positive: Pedal edema (pitting lower extremity edema improved from last visit 1+; up to mid calf) Neurologic/Psychiatric: positive: Oriented x3, Mood/affect nml, Weakness, Flat affect Palliative Care - POLST Patient has POLST: Yes POLST Status: DNR, Comfort Measures Pain: Pain unchanged, Location (See HPI) Tiredness/Fatigue: Moderate (4-6) Drowsiness/Sedation: Moderate (4-6) Nausea: None Anorexia: Mild (1-3) (improved with de) Dyspnea: Severe (7-10) Depression: Moderate (4-6) Anxiety: Severe (7-10) Feelings of wellbeing/Perceived Quality of Life: Fair, Improved Sleep: Sleeps well Constipation: Yes, Opoid induced, Intermittent constipation Performance Status: Patient does spend most of her time in the couch, can ambulate a few steps but with increased dyspnea respiratory distress. She is able to get to the bathroom a little bit easier. I would put her at a PPS of 40% - Palliative Care Discussion: Patient is very determined to improve her overall status, she is working on eating and drinking, she is hoping for weight gain, she has not lost anymore this week. She still remains with high symptom burden, with significant secretions, shortness of breath, her anorexia is improved, but still appears quite frail and cachectic. Her sister is present, all are supportive of Meg's goals. Her hope is for some improvement for a few weeks anyway, and to complete her end-of-life planning documents as well as application for financial assistance with bills. Discussed again at length recommendation to transition for hospice for increased support. Patient's resistance has much to do with her anxiety, as well as hoping for some time before she starts imminently declining. We did discuss unfortunately she needs more support, particularly for her caregiving team. Agreed she would reach out when she is ready, will check in later in week, if would accept an introductory visit. Impression and Recommendations - Palliative Care Impression: This is a 56-year-old woman with squamous cell carcinoma of the lung, with liver mets, mediastinal/hilar lymphadenopathy, currently has declined further treatment. She continues to be quite frail, with cachexia, functional decline, tachycardia, and severe dyspnea. She is being managed at home, with support from her significant other and sister. Palliative care will continue by support for patient with symptom management, coordination of care, until transitions to hospice. Recommendations/Counseling Done: 1. Pain of neoplastic origin. This is multifactorial, patient is currently on methadone 10 mg 3 times daily, this is an increase from her EVETTE D dosing, does feel it is currently at a good level. She is using oxycodone for breakthrough dosing, of 10 mg every 3 hours, she has not used more than 30 mg in 24 hours. New Rx sent for methadone. 2. Dyspnea. This is multifactorial. Patient with significant tachycardia with any activity. She does have oxygen, has been instructed to use it continuously. She has not obtained a portable tank so she can leave, recommended again following up with [facility]. 3. Anorexia. Patient has done better on the dexamethasone 2 mg daily, reports she has hungry, she is eating and drinking. She is doing better overall in this category. 4. Lower extremity edema. This remains persistent, suspect related to her low proteins and disease process, she denies any discomfort with this. She has been using elevation. 5. Metastatic lung cancer. At this point in time patient does not want to continue with treatment, have recommended transition to hospice for support for her family. Counseling provided again with her sister, she has had experience with her father regarding this. Patient would still like some more time to continue to consider this. 6. Advanced care planning. POLST is completed, DPOA is her Sister Sirisha as primary [phone]. It is DN AR and comfort focused care. Counseling provided regarding hospice support, have sent referral to hospice for when patient is ready for transition. 45 minutes with greater than 50% of this done in counseling regarding pain and symptom management, recommendation for transition to hospice, psychosocial support and anticipatory guidance.
== END 2021-02-26 14:16 | disposition home or self-care (01) ==
LOC: PC 14:15
PROVIDERS: ATTEND Nurse Practitioner Adult Health
DX: Z51.5 Encounter for palliative care (principal); G89.3 Neoplasm related pain (acute) (chronic); C34.32 Malignant neoplasm of lower lobe, left bronchus or lung; C78.7 Secondary malignant neoplasm of liver and intrahepatic bile duct; C77.1 Secondary and unspecified malignant neoplasm of intrathoracic lymph nodes; R06.00 Dyspnea, unspecified; R00.0 Tachycardia, unspecified; R63.0 Anorexia; R60.0 Localized edema; Z66 Do not resuscitate
CPT/HCPCS: 99349

== ENCOUNTER 2021-03-05 14:15 | Outpatient (CLI) | payer MEDICARE, MEDICAID ==
--- NOTE | 2021-03-05 17:00 | CONSULTATION NOTE ---
Palliative Care Follow Up - Referral Referring Provider: Dr. 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 She also has known liver mets, as well as hilar and mediastinal lymph node involvement. She had 2 rounds of carboplatinum slacks paclitaxel and pembrolizumab but did very poorly with both, and given the severity of her response, has decided not to pursue further treatment. She actually has continued to improve, with able to eat better, pain is still persistent but improved, shortness of breath and management of secretions is better as well. Her breath sounds are decreased throughout, with minimal air movement in her left lower lobe. She remains tachycardic at 116. She denies chest pain though does have intermittent mitten episodes of palpitations particularly with activity. She is having an easier time of moving her secretions with the Mucin ex, and has been able to back down off this. She has been instructed to wear her oxygen at all times, but has been off of that partly today with O2 sat of 93 to 94%. She still gets quite winded with any activity, she still appears quite cachectic, though she is eating better she still weighs about 86 pounds. Her pain is fairly well controlled on methadone 10 mg 3 times a day, she is using less oxycodone as she has been feeling better about 1-2 times a day. She is sleeping better, she does use marijuana to supplement her anxiety and pain management. She is encouraged she is feeling better, she remains somewhat ambivalent about transitioning over the hospice team. Though she would very much benefit from 24/hour coverage, she very much does not want to return to the hospital or ED. 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 Longstanding COPD/emphysema, history of C. difficile, chronic diarrhea and IBS, depression, anxiety, osteoarthritis, fatigue, chronic back pain, longstanding chronic pain originally was on methadone 10 mg twice daily when admitted. Social History - Living Situation Living arrangement: At home Living Situation: With spouse/s.o. Support System: Patient lives with his significant other Jd of 20 years, they are not and she has no children. She has a Sister Sirisha who she is close with, who comes and provides support, she is home for the week. Patient is doing much better, her other sister would be available but is in not as good health. Patient has been on long-term disability after her first cancer and ongoing chronic pain needs. 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 Medications/Allergies - Medications Home Medications: Ambulatory Orders Medication Instructions Recorded Confirmed Methadone HCl 10 mg PO TID 04/27/17 02/26/21 Prochlorperazine Maleate 10 mg PO Q6HR PRN #30 tab 01/08/21 02/26/21 [Compazine] Naloxone HCl [Narcan] 1 spray ABDULLAHI ONCE 01/22/21 02/26/21 Famotidine [Pepcid] 20 mg PO DAILY #30 tablet 01/23/21 02/26/21 Ondansetron Odt [Zofran] 4 mg TL Q6H PRN #20 tablet MDD use 01/23/21 02/26/21 sparingly after compazine Senna [Senokot] 1 - 2 tab PO BID PRN 01/24/21 02/26/21 polyethylene glycoL 3350 [Miralax] 17 gm PO DAILY MDD bid 01/24/21 02/26/21 oxyCODONE [Roxicodone] 5 - 10 mg PO Q3HR PRN 01/29/21 02/26/21 dexAMETHasone [Decadron] 2 mg PO DAILY 02/19/21 02/26/21 guaiFENesin [Mucinex] 400 mg PO Q4HR PRN 02/26/21 02/26/21 - Allergies Allergies/Adverse Reactions: Allergies Allergy/AdvReac Type Severity Reaction Status Date / Time No Known Drug Allergies Allergy Verified 02/08/21 10:07 Review of Systems - Constitutional Constitutional: reports: Fatigue (persistent), Weight stable (86 though cachetic in appearance). denies: Fever, Chills, Poor appetite (improved; eating small portions but HUNGRY) - Eyes Eyes: reports: Blurred vision, Vision loss - Ears, Nose & Throat Ears, Nose & Throat: reports: Dry mouth - Cardiovascular Cardiovascular: reports: Edema (improved trace in ankles), Lightheadedness, Exertional dyspnea, Decr. 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 denies: Wheezing - Gastrointestinal Gastrointestinal: reports: Abdominal pain, Bloating, Early satiety. denies: Constipation (new bowel program effective), Rectal bleeding, Nausea, Reflux/heartburn - Genitourinary Genitourinary: reports: Frequency - Musculoskeletal Musculoskeletal: reports: Back pain, Muscle aches, Stiffness, Limited range of motion, Muscle weakness - Integumentary Integumentary: reports: Dryness, Hair changes (alopeica) - Neurological Neurological: reports: General weakness, Abnormal gait - Psychiatric Psychiatric: reports: Depression, Anxiety - Hematologic/Lymphatic Hematologic/Lymph: reports: Anemia (9.8) - All Other Systems All Other Systems: reports: Reviewed and negative Physical Exam - Vital Signs Pulse Rate: 116 Respiratory Rate: 18 O2 Saturation: 93 (on room air at rest) Blood Pressure: 118/64 - Physical Exam General Appearance: positive: No acute distress, Alert, Cachetic Eyes Bilateral: positive: Normal inspection, Other (periorbital edema) ENT: negative: Oral lesions Neck: positive: Trachea midline Cardiovascular: positive: Tachycardia Respiratory: positive: Diminished throughout, Wheezes (LLL). negative: Chest non-tender (c/o chest pressure for several weeks since dx), No respiratory distress (respiratory effort with conversation/amblation), Rales, Rhonchi Abdomen: positive: Tenderness Skin: positive: Dryness, Other (sallow) Extremities: positive: Pedal edema (trace ankle edema) Neurologic/Psychiatric: positive: Oriented x3, Mood/affect nml, Weakness, Flat affect Palliative Care - POLST Patient has POLST: Yes POLST Status: DNR, Comfort Measures Pain: Pain improved, Location (LLL rib area radiating around to back) Tiredness/Fatigue: Moderate (4-6) Drowsiness/Sedation: Moderate (4-6) Nausea: Mild (1-3) Anorexia: Mild (1-3) Dyspnea: Severe (7-10) Depression: Mild (1-3) Anxiety: Moderate (4-6) Feelings of wellbeing/Perceived Quality of Life: Fair, Acceptable, Improved Sleep: Variable sleep pattern Constipation: Yes, Opoid induced, Managed Performance Status: Patient remains with poor performance status, does spend most the time on her couch. She is able to ambulate short distances in her home but with significant dyspnea. She is thinking about venturing out, she does need her oxygen tanks though. I would put her at a PPS of 50% - Palliative Care Discussion: Patient is feeling somewhat relieved, she is continue to improve, she her symptoms are less severe though she of course is still quite limited. She is feeling like she made a good decision regarding this, we did discuss in the context that sometimes less is better, her symptoms continue to improve as well. She remains still quite cachectic. She is somewhat anxious about transitioning to hospice, though understands it would "make things more easy" for her loved ones. She is feeling good, she is starting to feel like she can accomplish some things about wrapping up her end-of-life planning. Previous to that she did not feel like she had the energy or the willpower. She does know that hospice is reached out, and are going to be calling her back. Encouraged to continue to stay in contact and went over benefits given her current situation. Impression and Recommendations - Palliative Care Impression: This is a 56-year-old woman with squamous cell carcinoma of the lung, with liver mets, mediastinal and hilar lymphadenopathy who is currently on supportive care. She continues to be quite frail with cachexia, functional decline, tachycardia, and severe dyspnea. She is being managed at home with support from her significant other and family. She is eating better, is hydrated, does have a little bit more energy, and pain is well controlled. Palliative care continue to provide support for patient with symptom management, coordination of care until chooses transition to hospice. Recommendations/Counseling Done: 1. Pain of neoplastic origin. This is multifactorial, patient is currently on methadone 10 mg 3 times a day, she is using oxycodone for breakthrough dosing, but is only needing 1-2 doses in a 24-hour. She is satisfied with current regimen. 2. Dyspnea. This is multifactorial. Patient with significant tachycardia with any activity, is been instructed to use her oxygen continuously. She is doing better overall, reports less tightness, she does have some wheezing, encouraged to try her albuterol inhaler. 3. Anorexia. Patient reports she is eating better, her weight remains at 86. She has not lost anymore, she continues on the dexamethasone 2 mg daily, will continue with steroid support. 5. Metastatic lung cancer. At this point in time patient continues to choose no further treatment, but is feeling better overall. Have recommended transition to hospice support, she is still considering this. Hospice has been in contact, counseling provided regarding the continuum of care again. 6. Advanced care planning. POLST is completed, DPOA is her sister, Sirisha as primary [phone]. Patient is DNR and comfort focused care. She is feeling improved, and is hopeful to complete more of her end-of-life planning. Counseling provided regarding encouraging setting short-term goals, and focusing on the moment. 45 minutes with getting 50% of this done in counseling regarding pain and symptom management, processing grief and loss, and anticipatory guidance. [facility]
== END 2021-03-05 14:16 | disposition home or self-care (01) ==
LOC: PC 14:15
PROVIDERS: ATTEND Nurse Practitioner Adult Health
DX: Z51.5 Encounter for palliative care (principal); G89.3 Neoplasm related pain (acute) (chronic); C34.32 Malignant neoplasm of lower lobe, left bronchus or lung; C78.7 Secondary malignant neoplasm of liver and intrahepatic bile duct; C77.8 Secondary and unspecified malignant neoplasm of lymph nodes of multiple regions; Z66 Do not resuscitate; J43.9 Emphysema, unspecified; R64 Cachexia; R63.0 Anorexia; R00.0 Tachycardia, unspecified; R06.00 Dyspnea, unspecified; F41.9 Anxiety disorder, unspecified; F32.9 Major depressive disorder, single episode, unspecified; K58.0 Irritable bowel syndrome with diarrhea; M19.90 Unspecified osteoarthritis, unspecified site; R53.83 Other fatigue; M54.9 Dorsalgia, unspecified; Z85.51 Personal history of malignant neoplasm of bladder; Z85.89 Personal history of malignant neoplasm of other organs and systems
CPT/HCPCS: 99349

== ENCOUNTER 2021-03-19 | Outpatient (CLI) | payer MEDICARE, MEDICAID ==
--- NOTE | 2021-03-19 18:48 | CONSULTATION NOTE ---
Palliative Care Follow Up - Referral Referring Provider: Dr. 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 She does have known lung mets as well as hilar mediastinal lymph node involvement. She did return received 2 rounds of carboplatinum/Paclitaxel and pembrolizumab but tolerated both rounds poorly. Given the severity of her distress regarding this, decided not to pursue further treatment. She actually has felt better off of this, has been able to eat, does continue with persistent fatigue, dyspnea, and today presents with worsening pain. Her breath sounds are decreased throughout, with minimal air movement in the lef t lower lobe. She remains tachycardic, but denies chest pain. She has been instructed to wear her oxygen at all times but has set off, with office 93% pulse 122, with it on 2 L it is 98% pulse 112. She did have some weight loss earlier this week, but has regained back to her 86 pounds, she is quite cachectic. She has been maintained on methadone 10 mg 3 times a day, but has been using oxycodone 10 mg every 4 hours [id number] with very poor control, though has not reached out to palliative care to let them know. She is having more difficulty sleeping because of the exacerbation and pain, she does use marijuana to supplement her anxiety and pain management. 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 difficile, chronic diarrhea and IBS, depression, anxiety, osteoarthritis, fatigue, chronic back pain, longstanding chronic pain originally on methadone twice a day when admitted Social History - Living Situation Living arrangement: At home Living Situation: With spouse/s.o. Support System: Patient lives with her significant other Jd, 20 years they have been together though not . She has no children. She does have a sister, Sirisha who she is close with, who comes to provide support she is here stating the week. She has another sister from [place], She has visited. Patient has been on long-term disability after her first cancer and ongoing chronic pain disability. 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 Medications/Allergies - Medications Home Medications: Ambulatory Orders Medication Instructions Recorded Confirmed Methadone HCl 10 mg PO . 10 MG/10 MG/15 MG MDD 04/27/17 03/19/21 15 mg tid-titrating q 5days Prochlorperazine Maleate 10 mg PO Q6HR PRN #30 tab 01/08/21 03/19/21 [Compazine] Naloxone HCl [Narcan] 1 spray ABDULLAHI ONCE 01/22/21 03/19/21 Ondansetron Odt [Zofran] 4 mg TL Q6H PRN #20 tablet MDD use 01/23/21 03/19/21 sparingly after compazine Senna [Senokot] 1 - 2 tab PO BID PRN 01/24/21 03/19/21 polyethylene glycoL 3350 [Miralax] 17 gm PO DAILY MDD bid 01/24/21 03/19/21 oxyCODONE [Roxicodone] 10 - 20 mg PO Q3HR PRN 01/29/21 03/19/21 dexAMETHasone [Decadron] 2 mg PO DAILY 02/19/21 03/19/21 guaiFENesin [Mucinex] 400 mg PO Q4HR PRN 02/26/21 03/19/21 Omeprazole 20 mg PO DAILY 03/19/21 03/19/21 - Allergies Allergies/Adverse Reactions: Allergies Allergy/AdvReac Type Severity Reaction Status Date / Time No Known Drug Allergies Allergy Verified 02/08/21 10:07 Review of Systems - Constitutional Constitutional: reports: Fatigue (persistent but improved some), Weight loss (86 had lost a couple of pounds; up today). denies: Fever, Chills, Poor appetite (improved; eating small portions but HUNGRY) - Eyes Eyes: reports: Blurred vision, Vision loss - Ears, Nose & Throat Ears, Nose & Throat: reports: Dry mouth - Cardiovascular Cardiovascular: reports: Lightheadedness, Exertional dyspnea, Decr. exercise tolerance. 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 denies: Wheezing - Gastrointestinal Gastrointestinal: reports: Abdominal pain, Reflux/heartburn (mild; not using pepcid; ordered omeprazole), Bloating, Early satiety. denies: Constipation (has bowel meds; have not needed; hx of diarrhea), Rectal bleeding, Nausea - Genitourinary Genitourinary: reports: Frequency - Musculoskeletal Musculoskeletal: reports: Back pain, Muscle aches, Stiffness, Limited range of motion, Muscle weakness - Integumentary Integumentary: reports: Dryness, Hair changes (alopeica; got a couple of wigs; had long flowing hair prior to chemo-was difficult loss) - Neurological Neurological: reports: General weakness, Memory problems, Abnormal gait - Psychiatric Psychiatric: reports: Depression, Anxiety - Hematologic/Lymphatic Hematologic/Lymph: reports: Anemia (9.8) - All Other Systems All Other Systems: reports: Reviewed and negative Physical Exam - Vital Signs Temperature: 97.2 C Pulse Rate: 122 (after oxygen on down to 112) Respiratory Rate: 18 O2 Saturation: 93 (ra @ rest; 98 on 2 liters) Blood Pressure: 112/64 - Physical Exam General Appearance: positive: Alert, Moderate distress (discussing increasing pain; and meaning of increased pain), Cachetic Eyes Bilateral: positive: Normal inspection, Other (periorbital edema) ENT: negative: Oral lesions Neck: positive: Trachea midline Cardiovascular: positive: Tachycardia Respiratory: positive: Diminished throughout, Wheezes (LLL). 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 She is quite sedentary spends most the time on the couch, she did get some tank so she could get out of the home, recommended at least go out on some drives. She is currently able to manage her ADLs. - Palliative Care Discussion: Patient reports "feeling lost", is just in the waiting time. She has been spending time with friends and family, she has taking care of most of her end-of-life planning. She does have a POLST with DN AR and comfort measures, the goal is for her to have a at home. Both Sirisha and Jd have cared for someone on hospice, and are aware of hospice services. Patient is hopeful to have more time, but her anxiety has increased along with her pain and implications regarding this. Impression and Recommendations - Palliative Care Impression: This is a 56-year-old woman with squamous cell carcinoma of the left lower lung, with liver mets and mediastinal/hilar lymphadenopathy who currently is on supportive care. She continues to be quite frail with cachexia, functional decline, tachycardia and severe dyspnea. She presents today with worsening pain, she is supported at home by her significant other and sister. Palliative care to continue to provide support with coordination of care until patient transitions to hospice. Recommendations/Counseling Done: 1. Pain of neoplastic origin. This is multifactorial, she has her neoplastic pain superimposed on her chronic pain. She is currently on methadone 10 mg 3 times a day, she has been using 10 mg of oxycodone [id number] at 4 hours, patient does need her medications titrated. Written instructions to increase methadone to 10 mg a.m. 10 mg noon, and start 15 mg this evening, to continue this for 5 days and increase to 15 mg a.m. 10 mg noon and 15 mg p.m. She is to increase her breakthrough dosing to 10 to 20 mg every 3 hours as needed, and to track. Patient has agreed to transition to hospice team, will have in the meantime palliative care nurse call and track pain in response to methadone. 2. Dyspnea. This is multifactorial, patient has significant tachycardia with any activity, she has been instructed to wear her oxygen at all times. Patient verbalizes understanding. 3. Anorexia. Patient on dexamethasone 2 mg daily, is having some GI distress, has not been taking her famotidine, will order omeprazole. Her weight remains at 86, she had lost but regained. She reports she is eating but does have early satiety. 4. Constipation. Patient has not had any constipation, patient at baseline has IBS and diarrhea, has only needed to use bowel meds for as needed dosing. 5. Metastatic lung cancer. Patient presents with worsening pain, suspect increasing tumor burden. Patient agreeable to transition to hospice today, will put her in the queue, she is aware there will be a several day wait. She is been instructed to call in the meantime palliative care. 6. Advanced care planning. POLST is completed. EUGENIE is her sister, Bridget as primary [phone]. The patient is a DNR and comfort focused care. She continues to complete her end-of-life planning, feels like most of these documents are completed. Counseling provided regarding encouraging setting some short-term goals and focusing on some things that bring her lucius/comfort. 45 minutes with greater than 50% of this done in counseling regarding pain and symptom management, coordination of care with hospice team and transition to hospice when opening available
== END 2021-03-19 14:26 | disposition home or self-care (01) ==
CPT/HCPCS: 99349